=== PATIENT | male | born 1975 | race African-American/Black ===

== ENCOUNTER 2016-12-15 04:57 | Inpatient (IN) | payer SELFPAY ==
[~2016-12-15] VITALS: Ht 193 cm; Wt 65.7 kg
[~2016-12-15 04:57] MED LIST: SERO50TA4 PO
[2016-12-15 04:58] VITALS: BP 112/74; PULSE 102; RESP 16; TEMP 99.2; O2SAT 95
[2016-12-15] MEDS ORDERED: HIV med (05:07)
[2016-12-15] MEDS ORDERED: PIPERACIL-TAZO 4.5 GM PREMIX 100 ML IV STA (05:28)
[2016-12-15] MEDS ORDERED: VANCOMYCIN INJ 1,000 MG in SODIUM CHLOR 0.9% 250 ML INJ 250 ML IV STA (05:28)
--- NOTE | 2016-12-15 05:37 | PD ---
HPI Chief Complaint: Fever Time Seen by Provider: 05:28 Travel History International Travel<30 days: No Contact w/Intl Traveler<30days: No Traveled to known affect area: No History of Present Illness HPI 41-year-old male with history of HIV, last CD4 count 4 months ago was 98, has been off of his HIV medications due to social situation for the past 2-1/2 months, presents back to the ER today for several days history of chills, fevers , and skin lesions over the arms and ankles. He states he does not feel well and has also been having some diarrhea. He denies any vomiting or other symptoms. Modifying Factors: None Associated Signs & Symptoms: Fevers and chills, lesions to the arms, diarrhea Risk Factors: History of HIV PFSH Past Medical History Bipolar Disorder: Yes Cardiovascular Problems: Yes (HTN) Cerebrovascular Accident: No Diabetes: Yes Patient Takes Glucophage: Yes Diminished Hearing: No Immune Disorder: Yes (HIV) Immunizations Current: Yes Tetanus Vaccination: < 5 Years Influenza Vaccination: No Social History Alcohol Use: Yes (OCCASIONALLY) Tobacco Use: Yes (05/22 PPD ) Substance Use: Yes Allergies-Medications (Allergen,Severity, Reaction): Coded Allergies: No Known Allergies (Verified , 12/15/16) Reported Meds & Prescriptions Reported Meds & Active Scripts Active Reported [HIV med] Review of Systems Except as stated in HPI: all other systems reviewed are Neg Physical Exam Narrative GENERAL: Thin middle age -Mongolian male patient currently in moderate distress. Awake and oriented 3. SKIN: Focused skin assessment warm/dry. There are notable bilateral arm half to 1 cm skin excoriation and discolored ulcers. HEAD: Atraumatic. Normocephalic. EYES: Pupils equal and round. No scleral icterus. No injection or drainage. ENT: No nasal bleeding or discharge. Mucous membranes pink and moist. NECK: Trachea midline. No JVD. CARDIOVASCULAR: Regular rate and rhythm. No murmur appreciated. RESPIRATORY: No accessory muscle use. Clear to auscultation. Breath sounds equal bilaterally. GASTROINTESTINAL: Abdomen soft, non-tender, nondistended. Hepatic and splenic margins not palpable. MUSCULOSKELETAL: No obvious deformities. No clubbing. No cyanosis. No edema. NEUROLOGICAL: Awake and alert. No obvious cranial nerve deficits. Motor grossly within normal limits. Normal speech. PSYCHIATRIC: Appropriate mood and affect; insight and judgment normal. Data Data Last Documented VS Vital Signs Date Time Temp Pulse Resp B/P Pulse Ox O2 Delivery O2 Flow Rate FiO2 12/15/16 06:12 88 16 106/68 97 Room Air 12/15/16 04:58 99.2 Orders Complete Blood Count With Diff (12/15/16 05:28) Comprehensive Metabolic Panel (12/15/16 05:28) Lactic Acid Sepsis Protocol (12/15/16 05:28) Urinalysis - C+S If Indicated (12/15/16 05:28) Blood Culture (12/15/16 05:28) Chest, Single Ap (12/15/16 05:28) Blood Glucose (12/15/16 05:28) Ecg Monitoring (12/15/16 05:28) Iv Access Insert/Monitor (12/15/16 05:28) Oximetry (12/15/16 05:28) Oxygen Administration (12/15/16 05:28) Vancomycin Inj (Vancomycin Inj) (12/15/16 05:28) Piperacil-Tazo 4.5 Gm Premix (Zosyn 4.5 (12/15/16 05:28) Sodium Chlor 0.9% 1000 Ml Inj (Ns 1000 M (12/15/16 05:45) Labs Laboratory Tests Test 12/15/16 12/15/16 05:45 05:55 White Blood Count 6.8 TH/MM3 Red Blood Count 4.10 MIL/MM3 Hemoglobin 11.8 GM/DL Hematocrit 35.8 % Mean Corpuscular Volume 87.2 FL Mean Corpuscular Hemoglobin 28.8 PG Mean Corpuscular Hemoglobin 33.0 % Concent Red Cell Distribution Width 13.5 % Platelet Count 196 TH/MM3 Mean Platelet Volume 7.8 FL Neutrophils (%) (Auto) 76.0 % Lymphocytes (%) (Auto) 12.9 % Monocytes (%) (Auto) 10.6 % Eosinophils (%) (Auto) 0.1 % Basophils (%) (Auto) 0.4 % Neutrophils # (Auto) 5.2 TH/MM3 Lymphocytes # (Auto) 0.9 TH/MM3 Monocytes # (Auto) 0.7 TH/MM3 Eosinophils # (Auto) 0.0 TH/MM3 Basophils # (Auto) 0.0 TH/MM3 CBC Comment DIFF FINAL Differential Comment Sodium Level 132 MEQ/L Potassium Level 4.2 MEQ/L Chloride Level 98 MEQ/L Carbon Dioxide Level 27.8 MEQ/L Anion Gap 6 MEQ/L Blood Urea Nitrogen 26 MG/DL Creatinine 1.31 MG/DL Estimat Glomerular Filtration 74 ML/MIN Rate Random Glucose 83 MG/DL Calcium Level 8.2 MG/DL Total Bilirubin 0.6 MG/DL Aspartate Amino Transf 37 U/L (AST/SGOT) Alanine Aminotransferase 17 U/L (ALT/SGPT) Alkaline Phosphatase 63 U/L Total Protein 8.9 GM/DL Albumin 2.3 GM/DL Lactic Acid Level 1.0 mmol/L [facility] Medical Decision Making Medical Screen Exam Complete: Yes Emergency Medical Condition: Yes Medical Record Reviewed: Yes Interpretation(s) Laboratory Tests Test 12/15/16 05:45 Red Blood Count 4.10 MIL/MM3 (4.50-5.90) Hemoglobin 11.8 GM/DL (13.0-17.0) Hematocrit 35.8 % (39.0-51.0) Neutrophils (%) (Auto) 76.0 % (16.0-70.0) Monocytes (%) (Auto) 10.6 % (0.0-8.0) Lymphocytes # (Auto) 0.9 TH/MM3 (1.0-4.8) Sodium Level 132 MEQ/L (136-145) Blood Urea Nitrogen 26 MG/DL (7-18) Creatinine 1.31 MG/DL (0.60-1.30) Estimat Glomerular Filtration 74 ML/MIN (>89) Rate Calcium Level 8.2 MG/DL (8.5-10.1) Total Protein 8.9 GM/DL (6.4-8.2) Albumin 2.3 GM/DL (3.4-5.0) Last 24 hours Impressions Chest X-Ray 12/15/16 0528 Signed Impressions: Service Date/Time: Thursday, December 15, 2016 05:25 - CONCLUSION: Infiltrate left lower lobe retrocardiac region possible pneumonia Salinas Catalan MD Differential Diagnosis Sepsis versus AIDS versus cellulitis Narrative Course Considering patient's immunocompromise situation, IV antibiotics and sepsis protocol was initiated in the ER. Plan would be to admit the patient for further treatment. Chest x-ray shows some signs of possible left sided pneumonia. Diagnosis Primary Impression: Pneumonia Admitting Information Admitting Physician Requests: Admit Soontharothai,Rewadee MD Dec 15, 2016 05:37 Lynnette Agosto MD Dec 15, 2016 05:37
[2016-12-15] MEDS ORDERED: SODIUM CHLOR 0.9% 1000 ML INJ 1,000 ML IV ONE (05:45)
[2016-12-15 06:12] VITALS: BP 106/68; PULSE 88; RESP 16; O2SAT 97
--- NOTE | 2016-12-15 06:17 | RADRPT ---
EXAM DATE/TIME: 12/15/2016 05:25 [facility] COMPARISON: CHEST PA & LAT, June 23, 2015, 5:35. INDICATIONS : Fever. MEDICAL HISTORY : None. SURGICAL HISTORY : None. ENCOUNTER: Initial ACUITY: 2 days PAIN SCORE: 0/10 LOCATION: Bilateral chest FINDINGS: A single view of the chest demonstrates the lungs to be symmetrically aerated without evidence of mas s, or effusion. There is some airspace disease in the left lower lobe posteriorly The cardiomediastin al contours are unremarkable. Osseous structures are intact. CONCLUSION: Infiltrate left lower lobe retrocardiac region possible pneumonia Salinas Catalan MD on December 15, 2016 at 6:15 Board Certified Radiologist. This report was verified electronically.
[2016-12-15 06:35] LABS: AUTOMATED NEUTROPHIL # 5.2 TH/MM3 (1.8-7.7); BASOPHIL % 0.4 % (0.0-2.0); EOSINOPHIL % 0.1 % (0.0-4.0); HEMATOCRIT 35.8 % (39.0-51.0); HEMO FLAGS DIFF FINAL; LYMPH % 12.9 % (9.0-44.0); LYMPHOCYTE # 0.9 TH/MM3 (1.0-4.8); MEAN CELL VOLUME 87.2 FL (80.0-100.0); MEAN CORPUSCULAR HEMOGLOBIN 28.8 PG (27.0-34.0); MONO % 10.6 % (0.0-8.0); PLATELET COUNT 196 TH/MM3 (150-450); RED CELL DISTRIBUTION WIDTH 13.5 % (11.6-17.2); WHITE BLOOD COUNT 6.8 TH/MM3 (4.0-11.0)
[2016-12-15 06:49] LABS: ANION GAP 6 MEQ/L (5-15); AST (GOT) 37 U/L (15-37); BICARBONATE 27.8 MEQ/L (21.0-32.0); BLOOD UREA NITROGEN 26 MG/DL (7-18); CHLORIDE 98 MEQ/L (98-107); GLOMERULAR FILTRATION RATE 74 ML/MIN (>89); POTASSIUM 4.2 MEQ/L (3.5-5.1); SODIUM (NA) 132 MEQ/L (136-145)
[2016-12-15 06:50] LABS: ALT (GPT) 17 U/L (12-78)
[2016-12-15 06:53] LABS: ALKALINE PHOSPHATASE 63 U/L (45-117); TOTAL BILIRUBIN ADULT 0.6 MG/DL (0.2-1.0)
[2016-12-15] MEDS ORDERED: ONDANSETRON HCL 4 MG/2 ML VIAL IVP PRN (07:45)
[2016-12-15] MEDS ORDERED: NALOXONE HCL 0.4 MG/ML AMP IV PRN (07:45)
[2016-12-15] MEDS ORDERED: LACTULOSE SYRUP 20 GM/30 ML CUP PO PRN (07:45)
[2016-12-15] MEDS ORDERED: MAGNESIUM HYDROXIDE SUSP 30 ML CUP PO PRN (07:45)
[2016-12-15] MEDS ORDERED: ACETAMINOPHEN 325 MG TAB PO PRN (07:45)
[2016-12-15] MEDS ORDERED: SODIUM CHLORIDE 0.9% FLUSH 10 ML FLUSH IV FLUSH PRN (07:45)
[2016-12-15] MEDS ORDERED: SENNOSIDES 8.6 MG TAB PO PRN (07:45)
[2016-12-15] MEDS ORDERED: BISACODYL 10 MG SUPP RECTAL PRN (07:45)
[2016-12-15 07:55] VITALS: BP 133/72; PULSE 91; RESP 20; TEMP 98.6; O2SAT 97
[2016-12-15] MEDS: SODIUM CHLOR 0.9% 1000 ML INJ 1,000 ML IV SCH ×2 (08:06→17:45)
[2016-12-15] MEDS ORDERED: RESP: ALBUTEROL 2.5 MG/IPRATROPIUM 0.5 MG NEB (PRN) NEB (08:45)
[2016-12-15] MEDS: SODIUM CHLORIDE 0.9% FLUSH 10 ML FLUSH IV FLUSH SCH ×2 (09:00→20:55)
[2016-12-15] MEDS ORDERED: LEVOFLOXACIN 750 MG TAB PO SCH (09:00)
[2016-12-15] MEDS ORDERED: DOCUSATE SODIUM 50 MG/SENNA 8.6 MG TAB PO SCH (09:00)
[2016-12-15 09:53] VITALS: BP 96/52; PULSE 92; RESP 16; TEMP 99.2; O2SAT 95
--- NOTE | 2016-12-15 12:38 | HHI.HP ---
HPI Service [facility] Primary Care Physician No Primary Care Physician Admission Diagnosis pneumonia Diagnoses: Chief Complaint: Flulike symptoms Travel History International Travel<30 Days: No Contact w/Intl Traveler <30 Da: No Traveled to Known Affected Are: No Sepsis Criteria SIRS Criteria (2 or more): Heart rate over 90 History of Present Illness Written by Marc Alvarado, acting as scribe for Dr. Montanez on 12/15/16 at 12:04. This note was transcribed by scribJESSICA Mckeon. I, Dr. Anil Montanez personally performed the history, physical exam, and medical decision making; and confirmed the accuracy of the information in the transcribed note. Authenticated by Dr. Anil Montanez on 12/15/16 at 20:41. 41-year-old male with a past medical history of HIV and borderline DM who presented complaining of "flu-like" illness. The patient has been having generalized malaise for the past 2 days. He is an associated productive cough. He is had nausea and vomiting 2, denies any bleeding. He's noticed painful lesions on his arms and legs. He states he's felt dehydrated. Yesterday the patient began having watery diarrhea every time he ate. He states that his temperature was 103 at home prior to admission. He continues to have shaking chills. The patient does have a history of HIV. He was incarcerated recently and during his transition to half-way he was without his HIV medications. He has now been off of his HIV medication for the past 3 or 4 months while trying to reestablish treatment with the health department. He states that prior to getting off of his medication his last CD4 count was 97. He denies any abdominal pain. Review of Systems Except as stated in HPI: all other systems reviewed are Neg Past Family Social History Past Medical History HIV diagnosed in 2008 Reportedly borderline diabetic Past Surgical History Right ankle surgery Reported Medications None Allergies: Coded Allergies: No Known Allergies (Verified , 12/15/16) Active Ordered Medications Current Medications Medications (Trade) Dose Ordered Sig/Meet Route Start Time Stop Time Status Last Admin (NS 1000 ml Inj) 1,000 ml @ 100 mls/hr Q10H IV 12/15/16 07:45 12/15/16 08:06 (NS Flush) 2 ml UNSCH PRN IV FLUSH 12/15/16 07:45 (NS Flush) 2 ml BID IV FLUSH 12/15/16 09:00 (Tylenol) 650 mg Q4H PRN PO 12/15/16 07:45 (Zofran Inj) 4 mg Q6H PRN IVP 12/15/16 07:45 (Narcan Inj) 0.4 mg UNSCH PRN IV 12/15/16 07:45 (Kiki-Colace) 1 tab BID PO 12/15/16 09:00 12/15/16 09:38 (Milk Of Magnesia Liq) 30 ml Q12H PRN PO 12/15/16 07:45 (Senokot) 17.2 mg Q12H PRN PO 12/15/16 07:45 (Dulcolax Supp) 10 mg DAILY PRN RECTAL 12/15/16 07:45 (Lactulose Liq) 30 ml DAILY PRN PO 12/15/16 07:45 (Levaquin) 750 mg DAILY PO 12/15/16 09:00 12/15/16 09:15 Family History Hypertension Social History Smokes half pack per day Rare alcohol use Does admit to marijuana and recent cocaine use Physical Exam Vital Signs Vital Signs Date Time Temp Pulse Resp B/P Pulse Ox O2 Delivery O2 Flow Rate FiO2 12/15/16 09:53 99.2 92 16 96/52 95 12/15/16 07:55 92 20 99 Room Air 12/15/16 07:55 98.6 91 20 133/72 97 12/15/16 06:12 88 16 106/68 97 Room Air 12/15/16 04:58 99.2 102 16 112/74 95 Room Air Physical Exam GENERAL: Well-developed tall, thin, fair-nourished patient. In no acute distress. SKIN: Warm and dry. Numerous small lesions with central ulceration of the upper and lower extremities; no drainage noted. HEENT: Normocephalic. Pupils equal and round. Mucous membranes pink and moist. CARDIOVASCULAR: Regular rate and rhythm. No murmur appreciated. RESPIRATORY: No accessory muscle use. Clear to auscultation. Breath sounds equal bilaterally. GASTROINTESTINAL: Abdomen soft, non-tender, nondistended. Bowel sounds x4. MUSCULOSKELETAL: No obvious deformities. No clubbing or cyanosis. No edema. NEUROLOGICAL: Awake and alert. No focal neurological deficits. Moves upper and lower extremities spontaneously. Normal speech. PSYCHIATRIC: Appropriate mood and affect; insight and judgment normal. Laboratory Laboratory Tests Test 12/15/16 12/15/16 05:45 05:55 White Blood Count 6.8 Red Blood Count 4.10 Hemoglobin 11.8 Hematocrit 35.8 Mean Corpuscular Volume 87.2 Mean Corpuscular Hemoglobin 28.8 Mean Corpuscular Hemoglobin 33.0 Concent Red Cell Distribution Width 13.5 Platelet Count 196 Mean Platelet Volume 7.8 Neutrophils (%) (Auto) 76.0 Lymphocytes (%) (Auto) 12.9 Monocytes (%) (Auto) 10.6 Eosinophils (%) (Auto) 0.1 Basophils (%) (Auto) 0.4 Neutrophils # (Auto) 5.2 Lymphocytes # (Auto) 0.9 Monocytes # (Auto) 0.7 Eosinophils # (Auto) 0.0 Basophils # (Auto) 0.0 CBC Comment DIFF FINAL Differential Comment Sodium Level 132 Potassium Level 4.2 Chloride Level 98 Carbon Dioxide Level 27.8 Anion Gap 6 Blood Urea Nitrogen 26 Creatinine 1.31 Estimat Glomerular Filtration 74 Rate Random Glucose 83 Calcium Level 8.2 Total Bilirubin 0.6 Aspartate Amino Transf 37 (AST/SGOT) Alanine Aminotransferase 17 (ALT/SGPT) Alkaline Phosphatase 63 Total Protein 8.9 Albumin 2.3 Lactic Acid Level 1.0 Date/Time Procedure Status Source Growth 12/15/16 05:50 Aerobic Blood Culture Received Blood Peripheral Pending 12/15/16 05:50 Anaerobic Blood Culture Received Blood Peripheral Pending Result Diagram: 12/15/1645 12/15/1645 Imaging Last Impressions Chest X-Ray 12/15/16527 Signed Impressions: Service Date/Time: Thursday, December 15, 2016 05:25 - CONCLUSION: Infiltrate left lower lobe retrocardiac region possible pneumonia Salinas Catalan MD Assessment and Plan Assessment and Plan 41-year-old male with a past medical history of HIV and borderline DM who presented complaining of "flu-like" illness Pneumonia: Chest x-ray personally reviewed with left lower lobe retrocardiac infiltrate. Tmax 99.2. No leukocytosis. Received IV vancomycin and Zosyn in the ED, continue on oral Levaquin for now. Check sputum culture. Consult ID. O2 and nebs as needed. Gastroenteritis: Patient has been having nausea, vomiting, and diarrhea 2 days. Check stool studies. IVF. Antiemetics as needed. Acute kidney injury: Creatinine 1.31, previously 0.9 on 02/29/16. Likely secondary to dehydration from GI losses. IVF. Follow-up BMP. HIV: Reports previously compliant, however she has been off medications due to social situation for the past 34 months. Check lymphocyte profile. ID consulted. Skin lesions: May need biopsy. Follow-up ID recommendations. Moderate protein calorie malnutrition: BMI 16.4. Albumin 2.3. Add boost to meals. Consult dietitian. DVT prophylaxis: SCDs Discussed Condition With Patient, Marc Dubon Dec 15, 2016 12:38 Elias Montanez DO Dec 15, 2016 20:43
[2016-12-15 15:26] VITALS: BP 114/63; PULSE 93; RESP 15; TEMP 99.2; O2SAT 95
[2016-12-15 16:15] LABS: BLOOD, URINE SMALL (NEG); COMMENT (UR) CATH-CULT NOT IND; CULTURE IF INDICATED CATH CULTURE NOT IND; GLUCOSE,URINE NEG (NEG); GRANULAR CAST, URINE 3 /lpf; HYALINE CAST, URINE 5 /lpf (RARE); KETONE, URINE NEG (NEG); MUCUS URINE FEW /lpf (OCC); NITRITE,URINE NEG (NEG); PH, URINE 5.5 (5.0-8.5); SQUAMOUS EPITHELIAL CELL URINE <1 /hpf (0-5); URINE COLOR YELLOW (YELLW/STRAW)
[2016-12-15] MEDS ORDERED: Vancomycin Consult Pharmacy 1 EA OTHER SCH (16:30)
[2016-12-15] MEDS ORDERED: DIATRIZOATE MEGLUM/DIATRIZOATE SOD 9 ML CUP PO ONE (17:00)
--- NOTE | 2016-12-15 17:03 | PD.ID.CON ---
History of Present Illness Service ID Consult Requested By /Marc LOPEZ Reason for Consult Evaluation and Mment of Sepsis, Pneumonia in a pt with HIV/AIDS Primary Care Physician No Primary Care Physician Diagnoses: History of Present Illness is a 41 y/o CM with PMHx of HIV/AIDS, h/o syphilis, h/o Hepatitis B and Hepatitis C. Patient reports he was diagnosed with HIV in 2009 and had been on treatment since then by at health dept. Last seen by him 8 months back or so. Patient also reports homelessness, h/o incarceration, h/o being Yates acted but denies active suicidal ideation. He reports his last CD4 count as less than 90 almost a year back. He reports that once he was Yates Acted he has not been employed and has been homeless on streets. He reports a steady decline in his health for last few months with generalized fatigue, decreased appetite, difficulty ambulating due to weakness but still been dragging himself. With this background patient presents with "flu-like" illness. The patient has been having generalized malaise for the past 2 days, associated productive cough. He is had nausea and vomiting 2, denies any bleeding. He's noticed painful lesions on his arms and legs. He states he's felt dehydrated. Yesterday the patient began having watery diarrhea every time he ate. He states that his temperature was 103 at home prior to admission. He continues to have shaking chills. Patient reports having lived in [place] and [place] other than [place]. Patient reports incarceration Yates Acted. Syphilis Homelessness Per review of medical records: Positive PPD, Hep C and IVDA in past. ID consulted for evaluation and Mment of Sepsis, Pneumonia, Diarrhea in a pt with HIV/AIDS. Review of Systems ROS Limitations: Poor Historian Constitutional: COMPLAINS OF: Diaphoretic episodes, Fatigue, Fever, Chills, Night Sweats Endocrine: DENIES: Heat/cold intolerance, Polydipsia, Polyuria, Polyphagia Eyes: DENIES: Blurred vision, Diplopia, Eye inflammation, Eye pain, Vision loss , Photosensitivity, Double Vision Ears, nose, mouth, throat: DENIES: Tinnitus, Hearing loss, Vertigo, Nasal discharge, Oral lesions, Throat pain, Hoarseness, Ear Pain, Running Nose, Epistaxis, Sinus Pain, Toothache, Odynophagia Respiratory: COMPLAINS OF: Cough, Sputum production, Shortness of breath, DENIES: Apneas, Snoring, Wheezing, Hemoptysis Cardiovascular: COMPLAINS OF: Lower Extremity Edema, DENIES: Chest pain, Palpitations, Syncope, Dyspnea on Exertion, PND, Orthopnea, Claudication Gastrointestinal: COMPLAINS OF: Diarrhea, Nausea, Vomiting, DENIES: Abdominal pain, Black stools, Bloody stools, Constipation, Difficulty Swallowing, Anorexia Genitourinary: DENIES: Sexual dysfunction, Urinary frequency, Urinary incontinence, Urgency, Hematuria, Dysuria, Nocturia, Penile Discharge, Testicular Pain, Testicular Swelling Musculoskeletal: DENIES: Joint pain, Muscle aches, Stiffness, Joint Swelling, Back pain, Neck pain Integumentary: COMPLAINS OF: Rash, DENIES: Abnormal pigmentation, Nail changes , Pruritus Hematologic/lymphatic: DENIES: Bruising, Lymphadenopathy Immunologic/allergic: DENIES: Eczema, Urticaria Neurologic: COMPLAINS OF: Paresthesias, Poor Balance, DENIES: Abnormal gait, Headache, Localized weakness, Seizures, Speech Problems, Tremor H/o being incarcerated H/o being placed in [facility]. Past Family Social History Allergies: Coded Allergies: No Known Allergies (Verified , 12/15/16) Past Medical History HIV diagnosed in 2009 Reportedly borderline diabetic Syphilis Hep B or Hep B by history Past Surgical History Right ankle surgery Reported Medications Reported Meds & Active Scripts Active Reported [HIV med] Active Ordered Medications Current Medications Medications (Trade) Dose Ordered Sig/Meet Route Start Time Stop Time Status Last Admin (NS 1000 ml Inj) 1,000 ml @ 100 mls/hr Q10H IV 12/15/16 07:45 12/15/16 08:06 (NS Flush) 2 ml UNSCH PRN IV FLUSH 12/15/16 07:45 (NS Flush) 2 ml BID IV FLUSH 12/15/16 09:00 (Tylenol) 650 mg Q4H PRN PO 12/15/16 07:45 (Zofran Inj) 4 mg Q6H PRN IVP 12/15/16 07:45 (Narcan Inj) 0.4 mg UNSCH PRN IV 12/15/16 07:45 (Milk Of Magnesia Liq) 30 ml Q12H PRN PO 12/15/16 07:45 (Senokot) 17.2 mg Q12H PRN PO 12/15/16 07:45 (Dulcolax Supp) 10 mg DAILY PRN RECTAL 12/15/16 07:45 (Lactulose Liq) 30 ml DAILY PRN PO 12/15/16 07:45 (Bactrim Ds 800-160 Mg) 1 tab MoWeFr@09 PO 12/16/16 09:00 Azithromycin 500 mg 500 mg DAILY PO 12/15/16 16:30 Piperacillin Sod/ Tazobactam Sod 100 ml @ 200 mls/hr Q6H IV 12/15/16 18:00 Pharmacy Profile Note 0 ml @ 0 mls/hr UNSCH OTHER 12/15/16 16:30 (Vancomycin Inj/ NS 250 ml Inj) 250 ml @ 250 mls/hr Q12H IV 12/15/16 18:00 Miscellaneous Information SPECIFIC LAB TO BE CINDY... ONCE ONCE .XX 12/16/16 17:45 12/16/16 17:46 Family History Hypertension Social History Smokes half pack per day Rare alcohol use Does admit to marijuana and recent cocaine use Physical Exam Vital Signs Vital Signs Date Time Temp Pulse Resp B/P Pulse Ox O2 Delivery O2 Flow Rate FiO2 12/15/16 15:26 99.2 93 15 114/63 95 12/15/16 09:53 99.2 92 16 96/52 95 12/15/16 07:55 92 20 99 Room Air 12/15/16 07:55 98.6 91 20 133/72 97 12/15/16 06:12 88 16 106/68 97 Room Air 12/15/16 04:58 99.2 102 16 112/74 95 Room Air Physical Exam GENERAL: Thin built AAM patient, in no apparent distress. SKIN: Skin with multiple lesions some look like abrasions, some ruptured pustules. Generalized LNpathy noted. HEAD: Atraumatic. Normocephalic. No temporal or scalp tenderness. EYES: Pupils equal round and reactive. Extraocular motions intact. No scleral icterus. No injection or drainage. ENT: Nose without bleeding, purulent drainage or septal hematoma. Throat without erythema, tonsillar hypertrophy or exudate. Uvula midline. Airway patent. NECK: Trachea midline. Supple, nontender, no meningeal signs. CARDIOVASCULAR: Regular rate and rhythm without murmurs, gallops, or rubs. RESPIRATORY: Clear to auscultation. Breath sounds equal bilaterally but decreased in the bases. GASTROINTESTINAL: Abdomen soft, non-tender, nondistended. MUSCULOSKELETAL: Right great toe with swelling and tenderness, abrasions and skin tear noted as well. Tender to soft touch. NEUROLOGICAL: Awake and alert. Grossly non focal Psych: cooperative IV line sites with no e.o infection. Laboratory Laboratory Tests Test 12/15/16 12/15/16 12/15/16 05:45 05:55 15:25 White Blood Count 6.8 Red Blood Count 4.10 Hemoglobin 11.8 Hematocrit 35.8 Mean Corpuscular Volume 87.2 Mean Corpuscular Hemoglobin 28.8 Mean Corpuscular Hemoglobin 33.0 Concent Red Cell Distribution Width 13.5 Platelet Count 196 Mean Platelet Volume 7.8 Neutrophils (%) (Auto) 76.0 Lymphocytes (%) (Auto) 12.9 Monocytes (%) (Auto) 10.6 Eosinophils (%) (Auto) 0.1 Basophils (%) (Auto) 0.4 Neutrophils # (Auto) 5.2 Lymphocytes # (Auto) 0.9 Monocytes # (Auto) 0.7 Eosinophils # (Auto) 0.0 Basophils # (Auto) 0.0 CBC Comment DIFF FINAL Differential Comment Sodium Level 132 Potassium Level 4.2 Chloride Level 98 Carbon Dioxide Level 27.8 Anion Gap 6 Blood Urea Nitrogen 26 Creatinine 1.31 Estimat Glomerular Filtration 74 Rate Random Glucose 83 Calcium Level 8.2 Total Bilirubin 0.6 Aspartate Amino Transf 37 (AST/SGOT) Alanine Aminotransferase 17 (ALT/SGPT) Alkaline Phosphatase 63 Total Protein 8.9 Albumin 2.3 Lactic Acid Level 1.0 Urine Color YELLOW Urine Turbidity CLEAR Urine pH 5.5 Urine Specific Siren 1.021 Urine Protein 100 Urine Glucose (UA) NEG Urine Ketones NEG Urine Occult Blood SMALL Urine Nitrite NEG Urine Bilirubin NEG Urine Urobilinogen LESS THAN 2.0 Urine Leukocyte Esterase NEG Urine RBC 1 Urine WBC 1 Urine Squamous Epithelial <1 Cells Urine Hyaline Casts 5 Urine Granular Casts 3 Urine Mucus FEW Microscopic Urinalysis Comment CATH-CULT NOT IND Date/Time Procedure Status Source Growth 12/15/16 12:45 Gram Stain - Final Resulted Sputum Expectorated Sputum 12/15/16 12:45 Sputum Culture Resulted Sputum Expectorated Sputum Pending 12/15/16 12:45 Fungal Smear - Final Resulted Sputum Expectorated Sputum NO FUNGAL ELEMENTS SEEN. 7/30/17 12:45 Fungal Culture Resulted Sputum Expectorated Sputum Pending 12/15/16 12:45 Acid Fast Stain Received Sputum Expectorated Sputum Pending 12/15/16 12:45 Mycobacterial Culture Received Sputum Expectorated Sputum Pending 12/15/16 05:50 Aerobic Blood Culture Received Blood Peripheral Pending 12/15/16 05:50 Anaerobic Blood Culture Received Blood Peripheral Pending Result Diagram: 12/15/1654412/15/16544 Imaging Last Impressions Chest X-Ray 12/15/16527 Signed Impressions: Service Date/Time: Thursday, December 15, 2016 05:25 - CONCLUSION: Infiltrate left lower lobe retrocardiac region possible pneumonia Salinas Catalan MD Assessment and Plan Assessment and Plan Possible Sepsis present on admission (h/o fever, chills, night sweats in an advanced HIV/AIDS pt with Pneumonia, Immune compromised may not manifest SIRS). Prior Rx with HAART now off meds and CD4 less than 50 per pt few months back. Pneumonia DDX: CAP, atypical, PCP or other etiologies. Skin lesions: bacterial or Kaposi sarcoma (less likely) Possible bacteremia HIV AIDS H/o Syphilis H/o ? Hepatitis B and ? C Acute renal failure: ? prerenal, sepsis, h/o proteinuria (? DM related vs HIV nephropathy) Recs AFB blood culture Fungal blood culture Hepatitis panel HIV antibody screen Airborne isolation at risk for TB (Pneumonia with cough, homelessness, h/o incarceration) Contact isolation (has multiple skin lesions of undetermined origin) MTB PCR of sputum Follow cultures Follow clinically. CT chest with IV contrast (r/o PCP or other infections) CT A/P with contrast Stool AFB, enteric pathogens, cryptosporidium, cyclospora, fungus, WBC, Cdiff PCR ECHO (r/o endocarditis, pt at risk for culture negative endocarditis Serum Cryptococcal ag RPR with reflex to titer. CD4/CD8 count Viral load Genotype with reflex to Phenotype. Foot X ray (pain right foot great toe excruciating pain) Podiatry consult (r/o abscess great toe) Follow cultures Follow clinically. Cari Teixeira MD Dec 15, 2016 17:03
[2016-12-15] MEDS: AZITHROMYCIN 250 MG TAB PO SCH (17:28)
[2016-12-15] MEDS: PIPERACIL-TAZO 4.5 GM PREMIX 100 ML IV SCH (17:31)
--- NOTE | 2016-12-15 17:54 | RADRPT ---
EXAM DATE/TIME: 12/15/2016 17:35 [facility] COMPARISON: No previous studies available for comparison. INDICATIONS : Right foot pain, stubbed foot MEDICAL HISTORY : None. SURGICAL HISTORY : None. ENCOUNTER: Initial ACUITY: 1 week PAIN SCORE: 6/10 LOCATION: Right Foot FINDINGS: Two view examination of the right foot demonstrates no soft tissue swelling, dislocation, or fracture . The calcaneus is intact. Bony mineralization is normal. CONCLUSION: Negative exam. Donn Bahena MD on December 15, 2016 at 17:49 Board Certified Radiologist. This report was verified electronically.
[2016-12-15] MEDS: VANCOMYCIN 1,000 MG/NS 250 ML IV SCH ×2 (18:27)
[2016-12-15] MEDS ORDERED: IOHEXOL 350 MG/ML 10 ML VIAL (for RAD DIAG) IV ONE (20:12)
--- NOTE | 2016-12-15 20:24 | RADRPT ---
EXAM DATE/TIME: 12/15/2016 19:58 [facility] COMPARISON: No previous studies available for comparison. INDICATIONS : Pneumonia. IV CONTRAST: 100 cc Omnipaque 350 (iohexol) IV ; Cumulative dose for multiple exams. RADIATION DOSE: 4.78 CTDIvol (mGy) ; Combined studies - Thorax/Abdomen/Pelvis MEDICAL HISTORY : HIV. Hypertension. Diabetes mellitus type 2. SURGICAL HISTORY : None. ENCOUNTER: Initial ACUITY: 1 day PAIN SCALE: 0/10 LOCATION: chest TECHNIQUE: Volumetric scanning of the chest was performed. Using automated exposure control and adjustment of t he mA and/or kV according to patient size, radiation dose was kept as low as reasonably achievable to obtain optimal diagnostic quality images. DICOM format image data is available electronically for review and comparison. Follow-up recommendations for incidentally detected pulmonary nodules are based at a minimum on nodul e size and patient risk factors according to Fleischner Society Guidelines. FINDINGS: LUNGS: 87.4 cm rounded area of masslike consolidation is seen within the left lung base. A few air bronchogr ams are noted. No cystic areas or cavitation observed. Small sub-1 cm rounded areas of consolidation are seen involving the right lung base. Upper lobes are clear. PLEURA: There is no pleural thickening or pleural effusion. MEDIASTINUM: The heart and great vessels demonstrate no acute abnormality. There is no mediastinal or hilar lymph adenopathy. AXILLAE: Within normal limits. No lymphadenopathy. SKELETAL: Within normal limits for patient age. MISCELLANEOUS: See the CT of the abdomen and pelvis reported separately. CONCLUSION: 1. Large masslike area of consolidation involving the left lung base with scattered areas of small no dular like consolidation within the right lung base. Infectious etiology most likely. Donn Randhawa Jr., MD on December 15, 2016 at 20:20 Board Certified Radiologist. This report was verified electronically.
--- NOTE | 2016-12-15 20:35 | RADRPT ---
EXAM DATE/TIME: 12/15/2016 19:58 [facility] COMPARISON: CT ABDOMEN & PELVIS W/O CONTRAST, February 23, 2015, 12:05. INDICATIONS : History of HIV. Complains of diarrhea. IV CONTRAST: 100 cc Omnipaque 350 (iohexol) IV ; Cumulative dose for multiple exams. ORAL CONTRAST: Prescribed oral contrast ingested. RADIATION DOSE: 4.78 CTDIvol (mGy) ; Combined studies - Thorax/Abdomen/Pelvis MEDICAL HISTORY : Hypertension. HIV. Diabetes mellitus type 2. SURGICAL HISTORY : None. ENCOUNTER: Initial ACUITY: 1 day PAIN SCALE: 4/10 LOCATION: Bilateral abdomen TECHNIQUE: Volumetric scanning of the abdomen and pelvis was performed. Using automated exposure control and ad justment of the mA and/or kV according to patient size, radiation dose was kept as low as reasonably achievable to obtain optimal diagnostic quality images. DICOM format image data is available electro nically for review and comparison. FINDINGS: There is a paucity of subcutaneous and abdominal fat. Prior CT in 2015 also demonstrated decreased a bdominal fat, but there is has been a further loss of abdominal fat and compared to prior CT. Abnormal appearance the left lower lung with a masslike area devoid of air bronchograms measuring 5.5 cm. No evidence of pleural effusion. There is some patchy non-consolidative infiltrates in the rig ht lower lung. No focal lesions seen in the liver. The spleen is normal size. Pancreas is normal in configuration. There is hydronephrosis of the left kidney, no calcified stones in the collecting system of either kidney or along either ureter. Prior CT in 2015 also demonstrated left-sided hydronephrosis. Oral contrast passes through to the transverse colon. No dilated loops of small or large bowel. Uri nary ladder margins are smooth. No evidence of retroperitoneal or inguinal adenopathy. Wide windows for bony detail demonstrate the osseous structures to be intact. CONCLUSION: 1. Greater than 5 cm masslike lesion in the left lower lobe. Patchy infiltrates in the right lower l obe. 2. Moderately severe hydronephrosis on the left side, similar to a prior CT in 2014. 3. Almost complete loss of intra-abdominal and subcutaneous fat. Donn Bahena MD on December 15, 2016 at 20:28 Board Certified Radiologist. This report was verified electronically.
--- NOTE | 2016-12-15 20:37 | RADRPT ---
EXAM DATE/TIME: 12/15/2016 19:58 [facility] COMPARISON: No previous studies available for comparison. INDICATIONS : Possible cerebral abscess. IV CONTRAST: 100 cc Omnipaque 350 (iohexol) IV ; Cumulative dose for multiple exams. RADIATION DOSE: 53.04 CTDIvol (mGy) ; Tabletop CT Head MEDICAL HISTORY : HIV. Diabetes mellitus type 2. Hypertension. SURGICAL HISTORY : None. ENCOUNTER: Initial ACUITY: 1 day PAIN SCALE: 6/10 LOCATION: cranial TECHNIQUE: Multiple contiguous axial images were obtained of the head. Using automated exposure control and adj ustment of the mA and/or kV according to patient size, radiation dose was kept as low as reasonably a chievable to obtain optimal diagnostic quality images. DICOM format image data is available electro nically for review and comparison. FINDINGS: CEREBRUM: The ventricles are normal for age. No evidence of midline shift, cerebral edema or blood products. No extra-axial fluid collections are seen. POSTERIOR FOSSA: The cerebellum and brainstem are intact. The 4th ventricle is midline. The cerebellar pontine angle is unremarkable. EXTRACRANIAL: The visualized portion of the orbits is intact. SKULL: The calvaria is intact. No evidence of skull fracture. POST CONTRAST: No abnormal areas of parenchymal or dural enhancement. No evidence of blood-brain barrier breakdown. CONCLUSION: Negative CT of the brain with and without contrast. Donn Bahena MD on December 15, 2016 at 20:34 Board Certified Radiologist. This report was verified electronically.
[2016-12-15 20:50] VITALS: BP 105/66; PULSE 88; RESP 18; TEMP 98; O2SAT 95
[2016-12-16] VITALS (7 sets, daily range): BP systolic 98–115; BP diastolic 59–68; PULSE 66–78; RESP 16–18; TEMP 97–99.2; O2SAT 94–98
[2016-12-16 00:12] LABS: CHLAMYDIA PCR NOT DETECTED (NOT DETECT); NEISSERIA PCR NOT DETECTED (NOT DETECT)
[2016-12-16] MEDS: PIPERACIL-TAZO 4.5 GM PREMIX 100 ML IV SCH ×5 (00:58→23:31)
[2016-12-16] MEDS: SODIUM CHLOR 0.9% 1000 ML INJ 1,000 ML IV SCH ×3 (05:04→23:31)
[2016-12-16] MEDS: VANCOMYCIN 1,000 MG/NS 250 ML IV SCH ×4 (05:04→18:54)
[2016-12-16 06:15] LABS: BICARBONATE 26.5 MEQ/L (21.0-32.0); POTASSIUM 3.9 MEQ/L (3.5-5.1)
[2016-12-16 06:23] LABS: AUTOMATED NEUTROPHIL # 3.1 TH/MM3 (1.8-7.7); BASOPHIL % 0.3 % (0.0-2.0); EOSINOPHIL # 0.1 TH/MM3 (0-0.4); EOSINOPHIL % 1.8 % (0.0-4.0); HEMATOCRIT 31.8 % (39.0-51.0); HEMO FLAGS DIFF FINAL; LYMPH % 16.8 % (9.0-44.0); LYMPHOCYTE # 0.7 TH/MM3 (1.0-4.8); MEAN CELL VOLUME 86.1 FL (80.0-100.0); MEAN CORPUSCULAR HEMOGLOBIN 29.4 PG (27.0-34.0); MEAN CORPUSCULAR HGB CONC 34.1 % (32.0-36.0); MONO % 10.2 % (0.0-8.0); NEUT % 70.9 % (16.0-70.0); PLATELET COUNT 177 TH/MM3 (150-450); RED CELL DISTRIBUTION WIDTH 13.8 % (11.6-17.2); WHITE BLOOD COUNT 4.4 TH/MM3 (4.0-11.0)
[2016-12-16] MEDS: SODIUM CHLORIDE 0.9% FLUSH 10 ML FLUSH IV FLUSH SCH ×2 (08:44→20:49)
[2016-12-16] MEDS: AZITHROMYCIN 250 MG TAB PO SCH (08:45)
[2016-12-16] MEDS: SULFAMETHOXAZOLE-TRIMETHOPRIM DS 800-160 MG TAB PO SCH (08:45)
[2016-12-16] MEDS ORDERED: LIDOCAINE HCL 2% 20 ML VIAL I-DERMAL ONE (10:00)
[2016-12-16 10:14] LABS: M. TUBERCULOSIS PCR NOT DETECTED (NOT DETECT)
--- NOTE | 2016-12-16 11:11 | HHI.PR ---
Subjective Remarks Follow up for HIV patient with sepsis, fevers, weakness, cough, diarrhea. The patient reports just feeling very tired/fatigued. He denies any significant shortness of breath. His cough has improved, nonproductive today. Denies fevers/ chills overnight. Continues to have nonbloody diarrhea, 4 episodes yesterday, 1 episode so far today. Denies abdominal pain/nausea/vomiting. Still reports pain/ swelling at right great toe. He has no other medical complaints at this time. Objective Vitals Vital Signs Date Time Temp Pulse Resp B/P Pulse Ox O2 Delivery O2 Flow Rate FiO2 12/16/16 08:38 98.1 72 17 100/59 95 12/16/16 07:47 95 21 12/16/16 06:49 97.7 78 18 98/59 95 12/16/16 05:17 21 12/16/16 00:58 97.6 68 17 115/68 94 12/15/16 20:50 98.0 88 18 105/66 95 12/15/16 15:26 99.2 93 15 114/63 95 I/O 12/15/16 12/15/16 12/15/16 12/16/16 12/16/16 12/16/16 07:00 15:00 23:00 07:00 15:00 23:00 Intake Total 1200 ml Balance 1200 ml Intake Oral 600 ml IV Total 600 ml # Voids 3 # Bowel Movements 0 Result Diagram: 12/16/1652212/16/16 0523 Imaging Last Impressions Chest X-Ray 12/15/16 0528 Signed Impressions: Service Date/Time: Thursday, December 15, 2016 05:25 - CONCLUSION: Infiltrate left lower lobe retrocardiac region possible pneumonia Salinas Catalan MD Head CT 12/15/16 0000 Signed Impressions: Service Date/Time: Thursday, December 15, 2016 19:58 - CONCLUSION: Negative CT of the brain with and without contrast. Donn Bahena MD Foot X-Ray 12/15/16 0000 Signed Impressions: Service Date/Time: Thursday, December 15, 2016 17:35 - CONCLUSION: Negative exam. Donn Bahena MD Chest CT 12/15/16 0000 Signed Impressions: Service Date/Time: Thursday, December 15, 2016 19:58 - CONCLUSION: 1. Large masslike area of consolidation involving the left lung base with scattered areas of small nodular like consolidation within the right lung base. Infectious etiology most likely. Donn Randhawa Jr., MD Abdomen/Pelvis CT 12/15/16 0000 Signed Impressions: Service Date/Time: Thursday, December 15, 2016 19:58 - CONCLUSION: 1. Greater than 5 cm masslike lesion in the left lower lobe. Patchy infiltrates in the right lower lobe. 2. Moderately severe hydronephrosis on the left side, similar to a prior CT in 2014. 3. Almost complete loss of intra-abdominal and subcutaneous fat. Donn Bahena MD Objective Remarks GENERAL: Pleasant thin middle aged AA male patient in NAD. SKIN: Warm and dry. No rash. HEAD: Normocephalic. Atraumatic. EYES: Pupils equal and round. No scleral icterus. No injection or drainage. ENT: No nasal bleeding or discharge. Mucous membranes pink and moist. NECK: Supple. Trachea midline. CARDIOVASCULAR: Regular rate and rhythm. S1, S2 noted. No murmur appreciated. RESPIRATORY: No accessory muscle use. Scattered rhonchi, worse at right mid- lower lobes, no wheezing/crackles. GASTROINTESTINAL: Abdomen soft, non-tender, nondistended. Normoactive bowel sounds x4. MUSCULOSKELETAL: No obvious deformities. Extremities without clubbing, cyanosis , or edema. Right hallux tender edema surrounding medial nail bed, no active drainage. NEUROLOGICAL: Awake and alert. No obvious cranial nerve deficits. Motor grossly within normal limits. Normal speech. PSYCHIATRIC: Appropriate mood and affect; insight and judgment normal. Medications and IVs Current Medications Medications (Trade) Dose Ordered Sig/Meet Route Start Time Stop Time Status Last Admin (NS 1000 ml Inj) 1,000 ml @ 100 mls/hr Q10H IV 12/15/16 07:45 12/16/16 05:04 (NS Flush) 2 ml UNSCH PRN IV FLUSH 12/15/16 07:45 (NS Flush) 2 ml BID IV FLUSH 12/15/16 09:00 12/15/16 20:55 (Tylenol) 650 mg Q4H PRN PO 12/15/16 07:45 (Zofran Inj) 4 mg Q6H PRN IVP 12/15/16 07:45 (Narcan Inj) 0.4 mg UNSCH PRN IV 12/15/16 07:45 (Milk Of Magnesia Liq) 30 ml Q12H PRN PO 12/15/16 07:45 (Senokot) 17.2 mg Q12H PRN PO 12/15/16 07:45 (Dulcolax Supp) 10 mg DAILY PRN RECTAL 12/15/16 07:45 (Lactulose Liq) 30 ml DAILY PRN PO 12/15/16 07:45 (Bactrim Ds 800-160 Mg) 1 tab MoWeFr@09 PO 12/16/16 09:00 12/16/16 08:45 Azithromycin 500 mg 500 mg DAILY PO 12/15/16 16:30 12/16/16 08:45 Piperacillin Sod/ Tazobactam Sod 100 ml @ 200 mls/hr Q6H IV 12/15/16 18:00 12/16/16 06:43 Pharmacy Profile Note 0 ml @ 0 mls/hr UNSCH OTHER 12/15/16 16:30 (Vancomycin Inj/ NS 250 ml Inj) 250 ml @ 250 mls/hr Q12H IV 12/15/16 18:00 12/16/16 05:04 Miscellaneous Information SPECIFIC LAB TO BE CINDY... ONCE ONCE .XX 12/16/16 17:45 12/16/16 17:46 A/P Problem List: (1) Pneumonia ICD Code: J18.9 Status: Acute (2) Diarrhea ICD Code: R19.7 Status: Acute (3) HIV (human immunodeficiency virus infection) ICD Code: B20 Status: Acute (4) Sepsis associated with AIDS ICD Code: B20 Status: Acute Assessment and Plan 41-year-old male with a past medical history of HIV/AIDS, syphillis, hepatitic B /C, and borderline DM who presented complaining of "flu-like" illness Pneumonia, suspected Sepsis: patient with HIV/AIDS, immunocompromised, may not present with SIRS criteria, with fever Tmax 103 prior to arrival, chills, night sweats. Upon arrival, CXR reviewed with left lower lobe retrocardiac infiltrate. Tmax 99.2. No leukocytosis. Chest CT shows large masslike area of consolidation involving left lung base with scattered small nodular consolidation right lung base; likely infectious etiology. -Check blood cultures, sputum culture -high risk for TB (homeless, prior incarceration, +pneumonia), MTB PCR negative -Consult ID, appreciate recommendations. -Supportive treatment with O2 and nebs as needed. -Continue antibiotics with IV Vanco, IV Zosyn, bactrim, and azithro, per ID Endocarditis: Discussed with cardiology Dr. Kwon, endocarditis suspected on echo. -plan for JEREMY hopefully today -keep NPO for now -continue antibiotics as above -monitor blood cultures, NGTD Gastroenteritis: Patient has been having nausea, vomiting, and diarrhea 2 days. -Check stool studies with AFB, enteric pathogens, cryptosporidium, cyclospora , fungus, WBC, Cdiff PCR -Supportive treatment with IVF, Antiemetics as needed. -Monitor Is&Os Acute kidney injury: Creatinine 1.31, previously 0.9 on 02/29/16. Likely secondary to dehydration from GI losses. -Give IVF. -Repeat BMP with improvement, Cr 0.87 -Avoid nephrotoxins HIV/AIDS: Reports previously compliant, however has been off medications due to social situation for the past 34 months. Last CD4 count less than 50 a few months ago, per patient. -Check lymphocyte profile. -ID consulted, appreciate recommendations. Skin lesions: May need biopsy. -Follow-up ID recommendations. -continue contact isolation Moderate protein calorie malnutrition: BMI 16.4. Albumin 2.3. -Add boost to meals. -Consult dietitian. Right Hallux Paronychia vs Abscess: -consult podiatry DVT prophylaxis: SCDs Discharge Planning Discharge pending further work up, treatment, and clinical improvement. Not yet ready for discharge. Possibly in 3-5days. Sonja Castillo PA-C Dec 16, 2016 11:11
--- NOTE | 2016-12-16 13:12 | ECHRPT ---
Indication: endocarditis CONCLUSIONS The left ventricular systolic function is normal with an estimated ejection fraction in the range of 55-60%. Mild mitral valve regurgitation. Mobile structure on the right coronary cusp, consistent with vegetation . Mild aortic valve regurgitation. Questionable small mobile structure, possible vegetation. There is mild tricuspid valve regurgitation. BP: / HR: Rhythm: MEASUREMENTS (Male / Female) Normal Values Technical Quality:Good 2D ECHO LV Diastolic Diameter PLAX 5.3 cm 4.2 - 5.9 / 3.9 - 5.3 cm LV Systolic Diameter PLAX 3.9 cm IVS Diastolic Thickness 0.8 cm 0.6 - 1.0 / 0.6 - 0.9 cm LVPW Diastolic Thickness 1.1 cm 0.6 - 1.0 / 0.6 - 0.9 cm LV Relative Wall Thickness 0.4 M-MODE Aortic Root Diameter MM 2.9 cm LA Systolic Diameter MM 3.0 cm LA Ao Ratio MM 1.0 AV Cusp Separation MM 2.4 cm DOPPLER Mitral E Point Velocity 81.4 cm/s Mitral A Point Velocity 79.5 cm/s Mitral E to A Ratio 1.0 LV E' Lateral Velocity 5.9 cm/s Mitral E to LV E' Lateral Ratio 13.7 LV E' Septal Velocity 7.0 cm/s Mitral E to LV E' Septal Ratio 11.6 TR Peak Velocity 260.0 cm/s TR Peak Gradient 27.0 mmHg FINDINGS LEFT VENTRICLE Normal left ventricular size. Wall thickness is normal. The left ventricular systolic function is normal with an estimated ejection fraction in the range of 55-60%. No regional wall motion abnormalities are present. RIGHT VENTRICLE Normal right ventricular size and systolic function. LEFT ATRIUM The left atrial size is normal. RIGHT ATRIUM The right atrial size is normal. ATRIAL SEPTUM Normal atrial septal thickness without atrial level shunting by limited color doppler interrogation. AORTA The aortic root and proximal ascending aorta are normal in size on limited imaging. MITRAL VALVE Grossly normal appearing mitral valve Mild mitral valve regurgitation. AORTIC VALVE Trileaflet aortic valve. Mobile structure on the right coronary cusp, consistent with vegetation Mild aortic valve regurgitation. TRICUSPID VALVE Grossly normal tricuspid valve. Questionable small mobile structure, possible vegetation There is mild tricuspid valve regurgitation. The estimated pulmonary arterial pressure is _27_ mmHg. PULMONARY VALVE The pulmonary valve is not well visualized. VESSELS The inferior vena cava is normal in size. PERICARDIUM No pericardial effusion. Vaibhav Kwon DO (Electronically Signed) Final Date:16 December 2016 13:11
[2016-12-16] MEDS ORDERED: PHARMACY ORDERED LAB ONE (17:45)
[2016-12-16] MEDS: CALCIUM CARBONATE 500 MG CHEWABLE TAB CHEW SCH (20:49)
[2016-12-17] VITALS (9 sets, daily range): BP systolic 97–116; BP diastolic 56–74; PULSE 61–78; RESP 15–19; TEMP 97–99; O2SAT 94–100
[2016-12-17] MEDS: PIPERACIL-TAZO 4.5 GM PREMIX 100 ML IV SCH ×2 (05:50→11:32)
--- NOTE | 2016-12-17 06:16 | MB ---
cc: VAIBHAV FRANCIS DO DATE OF CONSULTATION December 16, 2016 REASON FOR CONSULTATION Concern for endocarditis. HISTORY OF PRESENT ILLNESS Kelsie Brady is a pleasant 41-year-old male who presented to [facility] Emergency Room with flu-like illness. He states that he has had general malaise for the past two days. He has also had a productive cough. He has had nausea and vomiting twice. He has also had some watery diarrhea every time he ate over the past few days. At home he states his temperature was 103. He has noted some shaking chills. During his workup an echocardiogram was done which showed a mobile structure on the right coronary cusp of the aortic valve consistent with vegetation as well as a questionable small mobile structure on the tricuspid valve. Because of this, I was asked to see the patient. PAST MEDICAL HISTORY 1. HIV diagnosed in 2008. 2. History of syphilis. 3. History of hepatitis C. 4. History of IV drug abuse. PAST SURGICAL HISTORY Right ankle surgery. ALLERGIES No known drug allergies. MEDICATIONS The patient is on a medication for his HIV but is unsure what it is. FAMILY HISTORY Denies premature coronary artery disease or sudden cardiac within the family. SOCIAL HISTORY The patient smokes half-a-pack of cigarettes per day. He rarely drinks alcohol. He does admit to marijuana and recent cocaine abuse. He does have a history of IV drug abuse. REVIEW OF SYSTEMS 14 systems were reviewed including osteopathic pertinent positives and negatives above, otherwise negative. PHYSICAL EXAMINATION VITAL SIGNS: Temperature 99.2, heart rate 73, blood pressure 107/64, respirations 16, pulse ox 98% on room air. GENERAL: The patient appears well, in no acute distress, alert, awake and oriented x 3. Extraocular muscles intact. Mucous membranes moist. NECK: Supple. No JVD at 45 degrees. No carotid bruits heard bilaterally. Carotid upstroke is brisk in nature. HEART: Regular rate and rhythm. Positive first and second heart sounds with no noted murmurs, gallops or rubs. LUNGS: Clear to auscultation bilaterally but mildly decreased at the bases. ABDOMEN: Soft, nontender, nondistended. No organomegaly noted. EXTREMITIES: No clubbing, cyanosis or edema. SKIN: Warm, dry and intact. NEUROLOGICALLY: No focal deficits. OSTEOPATHICALLY: No kyphoscoliosis, lordosis or paraspinal tender points. LABORATORY FINDINGS Hemoglobin 10.9, hematocrit 31.8, platelets 177. Potassium 3.9, BUN 13, creatinine 0.87. ECHOCARDIOGRAM (December 16, 2016) Ejection fraction 55-60%, mild mitral regurgitation. Mobile structure on the right coronary cusp of the aortic valve consistent with vegetation with mild aortic valve regurgitation. Questionable small mobile structure on the tricuspid valve with mild tricuspid regurgitation. IMPRESSIONS 1. Pneumonia. 2. Sepsis. 3. Possible endocarditis on echocardiogram as above. 4. History of HIV. 5. Gastroenteritis. RECOMMENDATIONS 1. Mr. Brady appears to possibly have endocarditis noted on his echocardiogram. I have recommended that he undergo JEREMY for further determination as well as possible sequelae of his endocarditis if there. 2. The risks, benefits and alternatives were explained to him and he consents as such. 3. The patient ate lunch and so is unable to do today. We will plan on doing in the morning. He will be n.p.o. after midnight. 4. I spoke to him for greater than 3 minutes about tobacco cessation. 5. Further recommendations will be made based on the hospital course. Thank you for allowing me to see Kelsie Brady. If there are any questions, please do not hesitate to call. Vaibhav Francis DO VGP/SSB /5:35 PM /6:04 AM
[2016-12-17] MEDS: VANCOMYCIN 1,000 MG/NS 250 ML IV SCH ×6 (07:02→20:44)
[2016-12-17] MEDS: SODIUM CHLORIDE 0.9% FLUSH 10 ML FLUSH IV FLUSH SCH ×2 (07:41→20:43)
[2016-12-17] MEDS: AZITHROMYCIN 250 MG TAB PO SCH (07:41)
[2016-12-17] MEDS: CALCIUM CARBONATE 500 MG CHEWABLE TAB CHEW SCH ×2 (07:41→20:44)
[2016-12-17] MEDS: SODIUM CHLOR 0.9% 1000 ML INJ 1,000 ML IV SCH ×2 (07:44→18:38)
--- NOTE | 2016-12-17 10:32 | ECHRPT ---
Indication: CONCLUSIONS The left ventricular systolic function is normal with an estimated ejection fraction in the range of 55-60%. [id number] mitral valve regurgitation with 2-3 jets noted. Findings consistent with vegetation on the non-coronary cusp of the aortic valve. Appears to be 0.8 cm by 0.8cm. Trace aortic valve regurgitation. BP: / HR: Rhythm: Sinus MEASUREMENTS (Male / Female) Normal Values Technical Quality:Good DOPPLER MR Peak Velocity 512.0 cm/s MR Peak Gradient 104.9 mmHg Medications Complications None Proc. Components FINDINGS LEFT VENTRICLE Normal left ventricular size. The left ventricular systolic function is normal with an estimated ejection fraction in the range of 55-60%. No regional wall motion abnormalities are present. RIGHT VENTRICLE The right ventricular size is normal. LEFT ATRIUM The left atrial size is normal. RIGHT ATRIUM The right atrium is not well visualized. ATRIAL APPENDAGES Normal left atrial appendage size with no evidence of thrombus formation. ATRIAL SEPTUM No atrial level shunt is demonstrated by color flow Doppler or agitated saline imaging. There was redundancy of the interatrial septum, with borderline criterial for septal aneurysm (benig n finding). AORTA The aortic root and proximal ascending aorta are not well visualized. MITRAL VALVE Structurally normal mitral valve. [id number] mitral valve regurgitation with 2-3 jets noted. No mitral valve stenosis. No evidence of vegetation AORTIC VALVE Trileaflet aortic valve. No aortic valve stenosis. Trace aortic valve regurgitation. Findings consistent with vegetation on the non-coronary cusp of the aortic valve. Appears to be 0.8 cm by 0.8cm. TRICUSPID VALVE Structurally normal tricuspid valve. There is trace tricuspid valve regurgitation. No tricuspid valv e stenosis. No evidence of vegetation VESSELS The pulmonary valve is not well visualized. No pulmonary valve regurgitation. Vaibhav Kwon DO (Electronically Signed) Final Date:17 December 2016 10:31
--- NOTE | 2016-12-17 11:26 | PD.CARD.PN ---
Subjective Subjective Remarks No events overnight No chest pain SOB better Post-JEREMY Objective Medications Current Medications Medications (Trade) Dose Ordered Sig/Meet Route Start Time Stop Time Status Last Admin (NS 1000 ml Inj) 1,000 ml @ 100 mls/hr Q10H IV 12/15/16 07:45 12/17/16 07:44 (NS Flush) 2 ml UNSCH PRN IV FLUSH 12/15/16 07:45 (NS Flush) 2 ml BID IV FLUSH 12/15/16 09:00 12/15/16 20:55 (Tylenol) 650 mg Q4H PRN PO 12/15/16 07:45 (Zofran Inj) 4 mg Q6H PRN IVP 12/15/16 07:45 (Narcan Inj) 0.4 mg UNSCH PRN IV 12/15/16 07:45 (Milk Of Magnesia Liq) 30 ml Q12H PRN PO 12/15/16 07:45 (Senokot) 17.2 mg Q12H PRN PO 12/15/16 07:45 (Dulcolax Supp) 10 mg DAILY PRN RECTAL 12/15/16 07:45 (Lactulose Liq) 30 ml DAILY PRN PO 12/15/16 07:45 (Bactrim Ds 800-160 Mg) 1 tab MoWeFr@09 PO 12/16/16 09:00 12/16/16 08:45 Azithromycin 500 mg 500 mg DAILY PO 12/15/16 16:30 12/17/16 07:41 Piperacillin Sod/ Tazobactam Sod 100 ml @ 200 mls/hr Q6H IV 12/15/16 18:00 12/17/16 05:50 (Vancomycin Consult Pharmacy) 0 ml @ 0 mls/hr UNSCH OTHER 12/15/16 16:30 Calcium Carbonate 500 mg 500 mg Q12HR CHEW 12/16/16 21:00 12/17/16 07:41 (Vancomycin Inj/ NS 250 ml Inj) 250 ml @ 250 mls/hr Q8H IV 12/17/16 14:00 Miscellaneous Information SPECIFIC LAB TO BE DRAWN:VANCOMYCIN TROUGH DATE TO... ONCE ONCE .XX 12/18/16 05:45 12/18/16 05:46 Vital Signs / I&O Vital Signs Date Time Temp Pulse Resp B/P Pulse Ox O2 Delivery O2 Flow Rate FiO2 8/1/17 10:46 94 12/17/16 09:43 97.0 67 18 97/57 94 12/17/16 08:00 Room Air 12/17/16 04:00 Room Air 12/17/16 04:00 98.6 66 19 109/61 98 12/17/16 00:00 69 12/17/16 00:00 Room Air 12/17/16 00:00 99.0 69 15 108/61 95 12/16/16 23:47 98.8 66 18 112/68 95 12/16/16 20:48 97.0 72 18 115/67 98 12/16/16 13:40 99.2 73 16 107/64 98 I/O 12/16/16 12/16/16 12/16/16 12/17/16 12/17/16 12/17/16 07:00 15:00 23:00 07:00 15:00 23:00 Intake Total 0 ml Output Total 460 ml Balance -460 ml Intake Oral 0 ml Output Urine Total 460 ml Physical Exam GENERAL: NAD, AAOx3 SKIN: Warm and dry. HEAD: Atraumatic. Normocephalic. EYES: Pupils equal and round. No scleral icterus. No injection or drainage. ENT: No nasal bleeding or discharge. Mucous membranes pink and moist. NECK: Trachea midline. No JVD. CARDIOVASCULAR: Regular rate and rhythm. RESPIRATORY: No accessory muscle use. Rhonchi bilaterally GASTROINTESTINAL: Abdomen soft, non-tender, nondistended. Hepatic and splenic margins not palpable. MUSCULOSKELETAL: Extremities without clubbing, cyanosis, or edema. No obvious deformities. NEUROLOGICAL: Awake and alert. No obvious cranial nerve deficits. Motor grossly within normal limits. Five out of 5 muscle strength in the arms and legs. Normal speech. PSYCHIATRIC: Appropriate mood and affect; insight and judgment normal. Laboratory Laboratory Tests Test 12/16/16 17:48 Vancomycin Level Trough 6.6 MCG/ML Assessment and Plan Problem List: (1) Sepsis associated with AIDS (2) HIV (human immunodeficiency virus infection) (3) Pneumonia (4) Diarrhea (5) Endocarditis of aortic valve Assessment and Plan 1) TTE showing possible endocarditis JEREMY today showing endocarditis on the non-coronary cusp of the aortic valve ( 0.8cm x 0.8cm) with trace AR 2) Sepsis/PNA 3) Discussed results with Vaibhav Covarrubias DO Dec 17, 2016 11:26
[2016-12-17 13:57] LABS: CRYPTOCOCCUS ANTIGEN Negative (Negative)
--- NOTE | 2016-12-17 14:24 | HHI.PR ---
Subjective Remarks Follow up for endocarditis. The patient is asleep upon my arrival. He denies any fevers/chills, chest pain, shortness of breath, cough, abdominal pain, or nausea/vomiting. He states his diarrhea is improving, only 1 episode so far today. He is tolerating oral intake. Discussed extensively diagnosis of endocarditis and need for penitentiary antibiotics, patient verbalized understanding. Objective Vitals Vital Signs Date Time Temp Pulse Resp B/P Pulse Ox O2 Delivery O2 Flow Rate FiO2 12/17/16 12:51 Room Air 12/17/16 12:02 61 12/17/16 12:00 98.0 71 18 111/56 97 12/17/16 10:46 94 12/17/16 09:43 97.0 67 18 97/57 94 12/17/16 08:00 Room Air 12/17/16 04:00 Room Air 12/17/16 04:00 98.6 66 19 109/61 98 12/17/16 00:00 69 12/17/16 00:00 Room Air 12/17/16 00:00 99.0 69 15 108/61 95 12/16/16 23:47 98.8 66 18 112/68 95 12/16/16 20:48 97.0 72 18 115/67 98 I/O 12/16/16 12/16/16 12/16/16 12/17/16 12/17/16 12/17/16 07:00 15:00 23:00 07:00 15:00 23:00 Intake Total 0 ml 620 ml Output Total 460 ml Balance -460 ml 620 ml Intake Oral 0 ml IV Total 620 ml Output Urine Total 460 ml Result Diagram: 12/16/16 0512/16/16 0523 Imaging Last Impressions Chest X-Ray 12/15/16 0528 Signed Impressions: Service Date/Time: Thursday, December 15, 2016 05:25 - CONCLUSION: Infiltrate left lower lobe retrocardiac region possible pneumonia Salinas Catalan MD Head CT 12/15/16 0000 Signed Impressions: Service Date/Time: Thursday, December 15, 2016 19:58 - CONCLUSION: Negative CT of the brain with and without contrast. Donn Bahena MD Foot X-Ray 12/15/16 0000 Signed Impressions: Service Date/Time: Thursday, December 15, 2016 17:35 - CONCLUSION: Negative exam. Donn Bahena MD Chest CT 12/15/16 0000 Signed Impressions: Service Date/Time: Thursday, December 15, 2016 19:58 - CONCLUSION: 1. Large masslike area of consolidation involving the left lung base with scattered areas of small nodular like consolidation within the right lung base. Infectious etiology most likely. Donn Randhawa Jr., MD Abdomen/Pelvis CT 12/15/16 0000 Signed Impressions: Service Date/Time: Thursday, December 15, 2016 19:58 - CONCLUSION: 1. Greater than 5 cm masslike lesion in the left lower lobe. Patchy infiltrates in the right lower lobe. 2. Moderately severe hydronephrosis on the left side, similar to a prior CT in 2015. 3. Almost complete loss of intra-abdominal and subcutaneous fat. Donn Bahena MD Objective Remarks GENERAL: Pleasant thin middle aged AA male patient in [facility]. SKIN: Warm and dry. Multiple diffuse skin lesions/abrasions with superficial healing ulcers; no active drainage. HEENT: Normocephalic. Atraumatic.Pupils equal and round. Mucous membranes pink and moist. NECK: Supple. Trachea midline. CARDIOVASCULAR: Regular rate and rhythm. S1, S2 noted. No murmur appreciated. RESPIRATORY: No accessory muscle use. Scattered rhonchi, worse at right mid- lower lobes, no wheezing/crackles. GASTROINTESTINAL: Abdomen soft, non-tender, nondistended. Normoactive bowel sounds x4. MUSCULOSKELETAL: No obvious deformities. Extremities without clubbing, cyanosis , or edema. Right hallux tender edema surrounding medial nail bed, no active drainage. NEUROLOGICAL: Awake and alert. No obvious cranial nerve deficits. Motor grossly within normal limits. Normal speech. PSYCHIATRIC: Appropriate mood and affect; insight and judgment normal. Medications and IVs Current Medications Medications (Trade) Dose Ordered Sig/Meet Route Start Time Stop Time Status Last Admin (NS 1000 ml Inj) 1,000 ml @ 100 mls/hr Q10H IV 12/15/16 07:45 12/17/16 07:44 (NS Flush) 2 ml UNSCH PRN IV FLUSH 12/15/16 07:45 (NS Flush) 2 ml BID IV FLUSH 12/15/16 09:00 12/15/16 20:55 (Tylenol) 650 mg Q4H PRN PO 12/15/16 07:45 (Zofran Inj) 4 mg Q6H PRN IVP 12/15/16 07:45 (Narcan Inj) 0.4 mg UNSCH PRN IV 12/15/16 07:45 (Milk Of Magnesia Liq) 30 ml Q12H PRN PO 12/15/16 07:45 (Senokot) 17.2 mg Q12H PRN PO 12/15/16 07:45 (Dulcolax Supp) 10 mg DAILY PRN RECTAL 12/15/16 07:45 (Lactulose Liq) 30 ml DAILY PRN PO 12/15/16 07:45 (Bactrim Ds 800-160 Mg) 1 tab MoWeFr@09 PO 12/16/16 09:00 12/16/16 08:45 Azithromycin 500 mg 500 mg DAILY PO 12/15/16 16:30 12/17/16 07:41 Piperacillin Sod/ Tazobactam Sod 100 ml @ 200 mls/hr Q6H IV 12/15/16 18:00 12/17/16 11:32 (Vancomycin Consult Pharmacy) 0 ml @ 0 mls/hr UNSCH OTHER 12/15/16 16:30 Calcium Carbonate 500 mg 500 mg Q12HR CHEW 12/16/16 21:00 12/17/16 07:41 (Vancomycin Inj/ NS 250 ml Inj) 250 ml @ 250 mls/hr Q8H IV 12/17/16 14:00 12/17/16 13:44 Miscellaneous Information SPECIFIC LAB TO BE DRAWN:VANCOMYCIN TROUGH DATE TO... ONCE ONCE .XX 12/18/16 05:45 12/18/16 05:46 A/P Problem List: (1) Pneumonia ICD Code: J18.9 Status: Acute (2) Diarrhea ICD Code: R19.7 Status: Acute (3) HIV (human immunodeficiency virus infection) ICD Code: B20 Status: Acute (4) Sepsis associated with AIDS ICD Code: B20 Status: Acute Assessment and Plan 41-year-old male with a past medical history of HIV/AIDS, syphillis, hepatitic B /C, and borderline DM who presented complaining of "flu-like" illness Pneumonia, suspected Sepsis: patient with HIV/AIDS, immunocompromised, may not present with SIRS criteria, with fever Tmax 103 prior to arrival, chills, night sweats. Upon arrival, CXR reviewed with left lower lobe retrocardiac infiltrate. Tmax 99.2. No leukocytosis. Chest CT shows large masslike area of consolidation involving left lung base with scattered small nodular consolidation right lung base; likely infectious etiology. -Blood cultures with NGTD, sputum culture with heavy growth normal respiratory mary jo -high risk for TB (homeless, prior incarceration, +pneumonia) however MTB PCR negative and sputum AFB negative, can likely d/c airborne isolation? -Consult ID, appreciate recommendations. -Supportive treatment with O2 and nebs as needed. -Continue antibiotics with IV Vanco, IV Zosyn, bactrim, and azithro, per ID Endocarditis: transthoracic echocardiogram shows likely endocarditis, discussed with Dr. Kwon. -JEREMY 12/[address] Kwon showed AV vegetations, consistent with endocarditis -continue antibiotics as above -monitor blood cultures, NGTD -ID on board, will likely need ferry terminal agent antibiotics; discussed with the patient Gastroenteritis: Patient has been having nausea, vomiting, and diarrhea 2 days. -Check stool studies with AFB, enteric pathogens, cryptosporidium, cyclospora , fungus, WBC, Cdiff PCR -Supportive treatment with IVF, Antiemetics as needed. -Monitor Is&Os -diarrhea improving, patient tolerating oral intake Acute kidney injury: Creatinine 1.31, previously 0.9 on 02/29/16. Likely secondary to dehydration from GI losses. -Give IVF. -Repeat BMP with improvement, Cr 0.87, resolved -Avoid nephrotoxins HIV/AIDS: Reports previously compliant however has been off medications due to social situation for the past 34 months. Last CD4 count less than 50 a few months ago, per patient. -Check lymphocyte profile, pending -ID consulted, appreciate recommendations. -case management provided patient with information for [facility] Skin lesions: May need biopsy. -Follow-up ID recommendations. -continue contact isolation Moderate protein calorie malnutrition: BMI 16.4. Albumin 2.3. -Add boost to meals. -Consult dietitian, recommends Ensure Enlive; add double protein to meals. Right Hallux Paronychia vs Abscess: -consult podiatry DVT prophylaxis: SCDs Discharge Planning Discharge pending further work up, treatment, and clinical improvement. Not yet ready for discharge. Possibly in 3-5days after IV antibiotic infusion arranged, if possible. Sonja Castillo PA-C Dec 17, 2016 2:24 pm
--- NOTE | 2016-12-17 15:40 | HHI.IDPN ---
Subjective Subjective Remarks is a 41 y/o CM with PMHx of HIV/AIDS, h/o syphilis, h/o Hepatitis B and Hepatitis C. Patient reports he was diagnosed with HIV in 2009 and had been on treatment since then by at health dept. Last seen by him 8 months back or so. Patient also reports homelessness, h/o incarceration, h/o being Yates acted but denies active suicidal ideation. He reports his last CD4 count as less than 90 almost a year back. He reports that once he was Yates Acted he has not been employed and has been homeless on streets. He reports a steady decline in his health for last few months with generalized fatigue, decreased appetite, difficulty ambulating due to weakness but still been dragging himself. With this background patient presents with "flu-like" illness. The patient has been having generalized malaise for the past 2 days, associated productive cough. He is had nausea and vomiting 2, denies any bleeding. He's noticed painful lesions on his arms and legs. He states he's felt dehydrated. Yesterday the patient began having watery diarrhea every time he ate. He states that his temperature was 103 at home prior to admission. He continues to have shaking chills. Patient reports having lived in [place] and [place] other than [place]. Patient reports incarceration Yates Acted. Syphilis Homelessness Per review of medical records: Positive PPD, Hep C and IVDA in past. ID consulted for evaluation and Mment of Sepsis, Pneumonia, Diarrhea in a pt with HIV/AIDS. Antibiotics Zosyn IV Vanco IV Lines Line sites with no e.o infection. Past Medical History H/o being incarcerated H/o being placed in [facility]. HIV diagnosed in 2009 Reportedly borderline diabetic Syphilis Hep B or Hep B by history Allergies: Coded Allergies: No Known Allergies (Verified , 12/15/16) Objective . Vital Signs Date Time Temp Pulse Resp B/P Pulse Ox O2 Delivery O2 Flow Rate FiO2 12/17/16 12:51 Room Air 12/17/16 12:02 61 12/17/16 12:00 98.0 71 18 111/56 97 12/17/16 10:46 94 12/17/16 09:43 97.0 67 18 97/57 94 12/17/16 08:00 Room Air 12/17/16 04:00 Room Air 12/17/16 04:00 98.6 66 19 109/61 98 12/17/16 00:00 69 12/17/16 00:00 Room Air 12/17/16 00:00 99.0 69 15 108/61 95 12/16/16 23:47 98.8 66 18 112/68 95 12/16/16 20:48 97.0 72 18 115/67 98 12/16/16 12/16/16 12/17/16 15:00 23:00 07:00 Intake Total 0 ml Output Total 460 ml Balance -460 ml Intake Oral 0 ml Output Urine Total 460 ml . Laboratory Tests Test 12/16/16 05:23 White Blood Count 4.4 TH/MM3 Red Blood Count 3.70 MIL/MM3 Hemoglobin 10.9 GM/DL Hematocrit 31.8 % Mean Corpuscular Volume 86.1 FL Mean Corpuscular Hemoglobin 29.4 PG Mean Corpuscular Hemoglobin 34.1 % Concent Red Cell Distribution Width 13.8 % Platelet Count 177 TH/MM3 Mean Platelet Volume 8.6 FL Neutrophils (%) (Auto) 70.9 % Lymphocytes (%) (Auto) 16.8 % Monocytes (%) (Auto) 10.2 % Eosinophils (%) (Auto) 1.8 % Basophils (%) (Auto) 0.3 % Neutrophils # (Auto) 3.1 TH/MM3 Lymphocytes # (Auto) 0.7 TH/MM3 Monocytes # (Auto) 0.4 TH/MM3 Eosinophils # (Auto) 0.1 TH/MM3 Basophils # (Auto) 0.0 TH/MM3 CBC Comment DIFF FINAL Differential Comment Laboratory Tests Test 12/16/16 12/16/16 05:23 10:42 Sodium Level 138 MEQ/L Potassium Level 3.9 MEQ/L Chloride Level 107 MEQ/L Carbon Dioxide Level 26.5 MEQ/L Anion Gap 5 MEQ/L Blood Urea Nitrogen 13 MG/DL Creatinine 0.87 MG/DL Estimat Glomerular Filtration 118 ML/MIN Rate Random Glucose 96 MG/DL Calcium Level 7.6 MG/DL Tumor Marker Alpha Fetoprotein 2.7 NG/ML Microbiology Date/Time Procedure Status Source Growth 12/15/16 05:45 Aerobic Blood Culture - Preliminary Resulted Blood Peripheral NO GROWTH IN 2 DAYS 12/15/16 05:45 Anaerobic Blood Culture - Preliminary Resulted Blood Peripheral NO GROWTH IN 2 DAYS 12/15/16 05:45 Blood Fungal Culture Resulted Blood Peripheral Pending 12/15/16 05:45 Blood Fungal Culture Resulted Blood Peripheral Pending 12/15/16 05:50 Aerobic Blood Culture - Preliminary Resulted Blood Peripheral NO GROWTH IN 2 DAYS 12/15/16 05:50 Anaerobic Blood Culture - Preliminary Resulted Blood Peripheral NO GROWTH IN 2 DAYS 12/15/16 05:50 Cancelled Blood Peripheral 12/15/16 12:45 Acid Fast Stain - Final Resulted Sputum Expectorated Sputum NO ACID FAST BACILLI SEEN 12/15/16 12:45 Mycobacterial Culture Resulted Sputum Expectorated Sputum Pending 12/15/16 12:45 Gram Stain - Final Complete Sputum Expectorated Sputum 12/15/16 12:45 Sputum Culture - Final Complete Sputum Expectorated Sputum HEAVY GROWTH NORMAL RESPIRATORY AMNA 12/15/16 12:45 Fungal Smear - Final Resulted Sputum Expectorated Sputum NO FUNGAL ELEMENTS SEEN. 12/15/16 12:45 Fungal Culture Resulted Sputum Expectorated Sputum Pending 12/15/16 21:07 Influenza Types A,B Antigen (MICHAEL) - Final Complete Nasal Aspirate NEGATIVE FOR FLU A AND B ANTIGEN.... Imaging Last Impressions Chest X-Ray 12/15/16 0528 Signed Impressions: Service Date/Time: Thursday, December 15, 2016 05:25 - CONCLUSION: Infiltrate left lower lobe retrocardiac region possible pneumonia Salinas Catalan MD Head CT 12/15/16 0000 Signed Impressions: Service Date/Time: Thursday, December 15, 2016 19:58 - CONCLUSION: Negative CT of the brain with and without contrast. Donn Bahena MD Foot X-Ray 12/15/16 0000 Signed Impressions: Service Date/Time: Thursday, December 15, 2016 17:35 - CONCLUSION: Negative exam. Donn Bahena MD Chest CT 12/15/16 0000 Signed Impressions: Service Date/Time: Thursday, December 15, 2016 19:58 - CONCLUSION: 1. Large masslike area of consolidation involving the left lung base with scattered areas of small nodular like consolidation within the right lung base. Infectious etiology most likely. Donn Randhawa Jr., MD Abdomen/Pelvis CT 12/15/16 0000 Signed Impressions: Service Date/Time: Thursday, December 15, 2016 19:58 - CONCLUSION: 1. Greater than 5 cm masslike lesion in the left lower lobe. Patchy infiltrates in the right lower lobe. 2. Moderately severe hydronephrosis on the left side, similar to a prior CT in 2015. 3. Almost complete loss of intra-abdominal and subcutaneous fat. Donn Bahena MD Physical Exam GENERAL: Thin built AAM patient, in no apparent distress. SKIN: Skin with multiple lesions some look like abrasions, some ruptured pustules. Generalized LNpathy noted. HEAD: Atraumatic. Normocephalic. No temporal or scalp tenderness. EYES: Pupils equal round and reactive. Extraocular motions intact. No scleral icterus. No injection or drainage. ENT: Nose without bleeding, purulent drainage or septal hematoma. Throat without erythema, tonsillar hypertrophy or exudate. Uvula midline. Airway patent. NECK: Trachea midline. Supple, nontender, no meningeal signs. CARDIOVASCULAR: Regular rate and rhythm without murmurs, gallops, or rubs. RESPIRATORY: Clear to auscultation. Breath sounds equal bilaterally but decreased in the bases. GASTROINTESTINAL: Abdomen soft, non-tender, nondistended. MUSCULOSKELETAL: Right great toe with swelling and tenderness, abrasions and skin tear noted as well. Tender to soft touch. NEUROLOGICAL: Awake and alert. Grossly non focal Psych: cooperative IV line sites with no e.o infection. Assessment & Plan Remarks Possible Sepsis present on admission (h/o fever, chills, night sweats in an advanced HIV/AIDS pt with Pneumonia, Immune compromised may not manifest SIRS). Prior Rx with HAART now off meds and CD4 less than 50 per pt few months back. Pneumonia DDX: likely septic emboli given endocarditis. Skin lesions: likely bacterial appear improved with Vanco IV HIV AIDS H/o Syphilis Recs Follow AFB blood culture Follow Fungal blood culture Negative Hepatitis panel DC Airborne isolation MTB PCR negative. DC contact isolation skin lesions dried up. RN instructed to get patient to shower today including hair wash. Follow cultures Follow clinically. Follow Stool studies Negative serum Cryptococcal ag RPR negative. Follow CD4/CD8 count Follow Viral load Follow Genotype with reflex to Phenotype. [email or web address] . Cari Burch MD Dec 17, 2016 15:40
--- NOTE | 2016-12-17 17:38 | MB ---
cc: JERI MATTSON DPM DATE OF CONSULTATION 12/17/16 1977 REASON FOR CONSULTATION Podiatric related to right hallux pain. HISTORY OF PRESENT ILLNESS The patient is a 41-year-old male with a complex medical history including HIV AIDS, history of symphilis, hep C, hep B. The patient was seen at bedside resting comfortably. On evaluation and discussion, he denies any pain to his foot. The only thing he relates is a callus on the bottom of the foot. He denies any nail pain or trauma to the toe. PAST MEDICAL HISTORY Per HPI SOCIAL HISTORY Yates Acted. The patient reports incarceration having lived previously in [place], [place] and [place]. Positive homelessness. REVIEW OF SYSTEMS Six point review of systems unremarkable. PAST SURGICAL HISTORY Right ankle surgery. MEDICATIONS Per HPI. PHYSICAL EXAMINATION Right DP and PT palpable +2/4. Right hallux - There is no pain on nail plate, no fluctuance, no erythema, no edema. He is hyperpigmented. There is a callus to the plantar medial aspect of the digit. There is no erythema, no drainage. No acute sign of infection. There is no tenderness on palpation. Protective sensation is grossly intact. Range of motion intact. ASSESSMENT/PLAN 1. Podiatric related: Right hallux keratoma, 2. No acute sign of nail plate infection. PLAN Recommend a Urea based cream, offloading and weight bearing with protective shoe gear. There is no abscess or acute sign of infection. Thank you for the kind consult. Jeri Mattson DPM SR/ /5:21 PM /5:26 PM DION
[2016-12-17] MEDS: LACTIC ACID (AMMONIUM LACTATE) 12% LOTION 225 GM BTL TOPICAL SCH (20:44)
[2016-12-18] VITALS (8 sets, daily range): BP systolic 106–122; BP diastolic 60–80; PULSE 62–91; RESP 18; TEMP 98.3–98.8; O2SAT 89–99
[2016-12-18 02:42] LABS: C. DIFF EPI 027 PRESUMPTIVE NEGATIVE (NEGATIVE); C. DIFF TOXIN PCR NEGATIVE (NEGATIVE)
[2016-12-18 03:53] LABS: CD 19 PERCENT 10 % (6-29); CD3 ABSOLUTE 517 (840-3060); CD4/CD8 RATIO 0.4 (0.86-5.00); CD8 ABSOLUTE 349 (180-1170); LYMPHOCYTES, ABSOLUTE 636 (850-3900)
[2016-12-18] MEDS: VANCOMYCIN 1,000 MG/NS 250 ML IV SCH ×6 (05:31→20:56)
[2016-12-18] MEDS ORDERED: PHARMACY ORDERED LAB ONE (05:45)
[2016-12-18] MEDS: SODIUM CHLOR 0.9% 1000 ML INJ 1,000 ML IV SCH ×2 (05:55→14:25)
[2016-12-18 06:03] LABS: VANCOMYCIN TROUGH 15.2 MCG/ML (5.0-10.0)
[2016-12-18] MEDS: SODIUM CHLORIDE 0.9% FLUSH 10 ML FLUSH IV FLUSH SCH ×2 (09:00→20:56)
[2016-12-18] MEDS: LACTIC ACID (AMMONIUM LACTATE) 12% LOTION 225 GM BTL TOPICAL SCH ×2 (09:01→20:57)
[2016-12-18] MEDS: CALCIUM CARBONATE 500 MG CHEWABLE TAB CHEW SCH ×2 (09:01→20:56)
[2016-12-18] MEDS: AZITHROMYCIN 250 MG TAB PO SCH (09:02)
[2016-12-18] MEDS: SULFAMETHOXAZOLE-TRIMETHOPRIM DS 800-160 MG TAB PO SCH (09:02)
--- NOTE | 2016-12-18 13:16 | PD.PSY.CON ---
Provisional Diagnosis Admission Date Dec 16, 2016 at 10:56 Lamar I. Adjustment disorder with depressed mood, psychological factors interfering with medical treatment/condition Lamar II. Deferred Lamar III. HIV, hepatitis B, hepatitis C History of Present Illness Service Psychiatry Consult Requested By Reason for Consult Assessed decision-making capacity Primary Care Physician No Primary Care Physician HPI The patient is a 41 year old man, homeless, single, unemployed , with psychiatric history of self reported bipolar disorder, ER visits under [facility] act, no previous psychiatric hospitalizations, no previous suicidal attempts, with medical history of HIV/AIDS, h/o syphilis, h/o Hepatitis B and Hepatitis C. hospitalized due to reported steady decline in his health for last few months with generalized fatigue, decreased appetite, difficulty ambulating due to weakness but still been dragging himself. With this background patient presents with "flu-like" illness. The patient has been having generalized malaise for the past 2 days, associated productive cough. He states that his temperature was 103 at home prior to admission. He continues to have shaking chills. Admitted due to pneumonia, possible sepsis, endocarditis, KEHINDE. Consulted to psychiatry due to sepsis decision-making capacity to refuse treatment. On psychiatric evaluation today patient is calm, cooperative and pleasant. Patient explains that he has not refused to continue with the treatment, but he has been very concerned about the length of the hospitalization needed for his IV antibiotics. He says that he is currently homeless, that the only support he has is his mother, his mother is moving to [place] soon and he won't have eating up house to sleep. Patient clarifies that he knows that he has about. In his blood, he has endocarditis and his heart is affected. He also mentioned that he has pneumonia and AIDS. Patient expresses that he is aware that if he stopped treatment he will " and I don't want to ". Patient reports good mood, denies depressive symptoms , denies anhedonia, denies hopelessness, denies helplessness, denies suicidal and homicidal ideation, he denies visual and auditory hallucinations. He is logical, coherent and relevant. Oriented 3, no attention deficit, no gross cognitive impairment present. Patient says that he is open for different alternative of treatment, but if there is no choice but his stay in the hospital in order oriented and better he will stay. Patient denies the use of illicit drugs and alcohol. t Review of Systems Constitutional: COMPLAINS OF: Fatigue, DENIES: Diaphoretic episodes, Fever, Weight gain, Weight loss, Chills, Dizziness, Change in appetite, Night Sweats Endocrine: DENIES: Heat/cold intolerance, Polydipsia, Polyuria, Polyphagia Eyes: DENIES: Blurred vision, Diplopia, Eye inflammation, Eye pain, Vision loss , Photosensitivity, Double Vision Ears, nose, mouth, throat: DENIES: Tinnitus, Hearing loss, Vertigo, Nasal discharge, Oral lesions, Throat pain, Hoarseness, Ear Pain, Running Nose, Epistaxis, Sinus Pain, Toothache, Odynophagia Respiratory: COMPLAINS OF: Sputum production, Shortness of breath, DENIES: Apneas, Cough, Snoring, Wheezing, Hemoptysis Cardiovascular: COMPLAINS OF: Palpitations, DENIES: Chest pain, Syncope, Dyspnea on Exertion, PND, Lower Extremity Edema, Orthopnea, Claudication Genitourinary: DENIES: Sexual dysfunction, Urinary frequency, Urinary incontinence, Urgency, Hematuria, Dysuria, Nocturia, Penile Discharge, Testicular Pain, Testicular Swelling Musculoskeletal: DENIES: Joint pain, Muscle aches, Stiffness, Joint Swelling, Back pain, Neck pain Integumentary: DENIES: Abnormal pigmentation, Nail changes, Pruritus, Rash Neurologic: DENIES: Abnormal gait, Headache, Localized weakness, Paresthesias, Seizures, Speech Problems, Tremor, Poor Balance Psychiatric: DENIES: Anxiety, Confusion, Mood changes, Depression, Hallucinations, Agitation, Suicidal Ideation, Homicidal Ideation, Delusions Past Family Social History Coded Allergies: No Known Allergies (Verified , 12/15/16) Reported Medications [HIV med] No Conflict Check 12/15/16 Current Medications Medications (Trade) Dose Ordered Sig/Meet Route Start Time Stop Time Status Last Admin (NS 1000 ml Inj) 1,000 ml @ 100 mls/hr Q10H IV 12/15/16 07:45 12/18/16 05:55 (NS Flush) 2 ml UNSCH PRN IV FLUSH 12/15/16 07:45 (NS Flush) 2 ml BID IV FLUSH 12/15/16 09:00 12/15/16 20:55 (Tylenol) 650 mg Q4H PRN PO 12/15/16 07:45 (Zofran Inj) 4 mg Q6H PRN IVP 12/15/16 07:45 (Narcan Inj) 0.4 mg UNSCH PRN IV 12/15/16 07:45 (Milk Of Magnesia Liq) 30 ml Q12H PRN PO 12/15/16 07:45 (Senokot) 17.2 mg Q12H PRN PO 12/15/16 07:45 (Dulcolax Supp) 10 mg DAILY PRN RECTAL 12/15/16 07:45 (Lactulose Liq) 30 ml DAILY PRN PO 12/15/16 07:45 (Bactrim Ds 800-160 Mg) 1 tab MoWeFr@09 PO 12/16/16 09:00 12/18/16 09:02 Azithromycin 500 mg 500 mg DAILY PO 12/15/16 16:30 12/18/16 09:02 (Vancomycin Consult Pharmacy) 0 ml @ 0 mls/hr UNSCH OTHER 12/15/16 16:30 Calcium Carbonate 500 mg 500 mg Q12HR CHEW 12/16/16 21:00 12/18/16 09:01 (Vancomycin Inj/ NS 250 ml Inj) 250 ml @ 250 mls/hr Q8H IV 12/17/16 14:00 12/18/16 05:31 (Lac-Hydrin 12% Lotion) 1 applic BID TOPICAL 12/17/16 21:00 12/18/16 09:01 Miscellaneous Information SPECIFIC LAB TO BE DRAWN:VANCOMYCIN TROUGH DATE TO... ONCE ONCE .XX 12/20/16 05:45 12/20/16 05:46 Family History Patient denies family history Social History He was born and raised in [place], he is unemployed, is single, he is homeless, his highest level of education is 11th grade Patient's Strengths (min. 2) Verbal communication Physical Exam On physical exam, no EPS, no tremors, no withdrawal, no stiffness present Vital Signs Vital Signs Date Time Temp Pulse Resp B/P Pulse Ox O2 Delivery O2 Flow Rate FiO2 12/18/16 12:38 Room Air 12/18/16 12:28 69 12/18/16 08:00 98.4 18 116/60 97 12/17/16 17:43 21 I/O 12/17/16 12/17/16 12/18/16 08:00 16:00 00:00 Intake Total 0 ml 1100 ml 713 ml Output Total 460 ml Balance -460 ml 1100 ml 713 ml Lab Results Laboratory Tests Test 12/16/16 05:23 White Blood Count 4.4 TH/MM3 Red Blood Count 3.70 MIL/MM3 Hemoglobin 10.9 GM/DL Hematocrit 31.8 % Mean Corpuscular Volume 86.1 FL Mean Corpuscular Hemoglobin 29.4 PG Mean Corpuscular Hemoglobin 34.1 % Concent Red Cell Distribution Width 13.8 % Platelet Count 177 TH/MM3 Mean Platelet Volume 8.6 FL Neutrophils (%) (Auto) 70.9 % Lymphocytes (%) (Auto) 16.8 % Monocytes (%) (Auto) 10.2 % Eosinophils (%) (Auto) 1.8 % Basophils (%) (Auto) 0.3 % Neutrophils # (Auto) 3.1 TH/MM3 Lymphocytes # (Auto) 0.7 TH/MM3 Monocytes # (Auto) 0.4 TH/MM3 Eosinophils # (Auto) 0.1 TH/MM3 Basophils # (Auto) 0.0 TH/MM3 CBC Comment DIFF FINAL Differential Comment Laboratory Tests Test 12/16/16 12/16/16 05:23 10:42 Sodium Level 138 MEQ/L Potassium Level 3.9 MEQ/L Chloride Level 107 MEQ/L Carbon Dioxide Level 26.5 MEQ/L Anion Gap 5 MEQ/L Blood Urea Nitrogen 13 MG/DL Creatinine 0.87 MG/DL Estimat Glomerular Filtration 118 ML/MIN Rate Random Glucose 96 MG/DL Calcium Level 7.6 MG/DL Tumor Marker Alpha Fetoprotein 2.7 NG/ML Mental Status Examination Appearance man, chronically ill, fair hygiene,, calm and cooperative Speech: Unremarkable Orientation: x3 Memory: Unremarkable Thought Process: Logical Thought Content: Unremarkable Hallucination Type: None Suicidal Ideation: No Previous Suicide Attempts: No Homicidal Ideation: No Previous Homicide Attempts: No Insight: Good Judgment: WNL Affect: Good Mood: Appropriate Motor Activity: Normal gait Assessment & Plan Problem List: (1) Adjustment disorder with depressed mood Assessment & Plan: At the moment of this evaluation the patient does not present any acute, concerning her significant evidence of depressive symptoms, anxiety, raisa or psychosis. Patient denies suicidal and homicidal ideation, he denies visual and auditory hallucinations. Patient is calm, cooperative and pleasant. She is logical coherent and relevant. He is oriented 3, without no attention deficit, no fluctuation of consciousness, no gross cognitive impairment present. Patient seems to have a good understanding and appreciation of his current underlying acute/chronic medical conditions. He also seems to be aware of the consequences of not following medical recommendations and not taking medications. He has a clear choice of following recommendations, even though he is concerned about the length of hospitalization needed for antibiotic therapy. Patient is open to explore alternative for the treatment, but if the only alternative was hospitalization he will follow. At this moment the patient doesn't have any psychiatric contraindication to participate in medical decision and he keeps his decision- making capacity as at this moment. He does not need any immediate psychiatric intervention. Extensive support, motivation and psychoeducation provided. Consult appreciated. ICD Code: F43.21 Assessment & Plan Estimated LOS: days Jeremy Lin MD Dec 18, 2016 13:16
[2016-12-18 16:42] LABS: BARTONELLA HENSELAE IGG <1:128 titer (<1:128); BARTONELLA HENSELAE IGM <1:20 titer (<1:20); BARTONELLA QUINTANA IGM <1:20 titer (<1:20)
--- NOTE | 2016-12-18 16:51 | PD.CARD.PN ---
Subjective Subjective Remarks No events overnight No chest pain/SOB, no subjective fever/chills Objective Medications Current Medications Medications (Trade) Dose Ordered Sig/Meet Route Start Time Stop Time Status Last Admin (NS 1000 ml Inj) 1,000 ml @ 100 mls/hr Q10H IV 12/15/16 07:45 12/18/16 14:25 (NS Flush) 2 ml UNSCH PRN IV FLUSH 12/15/16 07:45 (NS Flush) 2 ml BID IV FLUSH 12/15/16 09:00 12/15/16 20:55 (Tylenol) 650 mg Q4H PRN PO 12/15/16 07:45 (Zofran Inj) 4 mg Q6H PRN IVP 12/15/16 07:45 (Narcan Inj) 0.4 mg UNSCH PRN IV 12/15/16 07:45 (Milk Of Magnesia Liq) 30 ml Q12H PRN PO 12/15/16 07:45 (Senokot) 17.2 mg Q12H PRN PO 12/15/16 07:45 (Dulcolax Supp) 10 mg DAILY PRN RECTAL 12/15/16 07:45 (Lactulose Liq) 30 ml DAILY PRN PO 12/15/16 07:45 (Bactrim Ds 800-160 Mg) 1 tab MoWeFr@09 PO 12/16/16 09:00 12/18/16 09:02 Azithromycin 500 mg 500 mg DAILY PO 12/15/16 16:30 12/18/16 09:02 (Vancomycin Consult Pharmacy) 0 ml @ 0 mls/hr UNSCH OTHER 12/15/16 16:30 Calcium Carbonate 500 mg 500 mg Q12HR CHEW 12/16/16 21:00 12/18/16 09:01 (Vancomycin Inj/ NS 250 ml Inj) 250 ml @ 250 mls/hr Q8H IV 12/17/16 14:00 12/18/16 14:25 (Lac-Hydrin 12% Lotion) 1 applic BID TOPICAL 12/17/16 21:00 12/18/16 09:01 Miscellaneous Information SPECIFIC LAB TO BE DRAWN:VANCOMYCIN TROUGH DATE TO... ONCE ONCE .XX 12/20/16 05:45 12/20/16 05:46 Vital Signs / I&O Vital Signs Date Time Temp Pulse Resp B/P Pulse Ox O2 Delivery O2 Flow Rate FiO2 12/18/16 12:38 Room Air 12/18/16 12:28 69 12/18/16 08:00 98.4 66 18 116/60 97 12/18/16 08:00 Room Air 12/18/16 04:00 98.8 65 18 111/80 99 12/18/16 00:00 98.6 70 18 110/63 89 12/18/16 00:00 Room Air 12/17/16 20:00 98.0 67 16 116/74 100 12/17/16 20:00 Room Air 12/17/16 17:43 98 21 I/O 12/17/16 12/17/16 12/17/16 12/18/16 12/18/16 12/18/16 07:00 15:00 23:00 07:00 15:00 23:00 Intake Total 0 ml 1100 ml 713 ml 1248 ml Output Total 460 ml Balance -460 ml 1100 ml 713 ml 1248 ml Intake Oral 0 ml 480 ml IV Total 620 ml 713 ml 1248 ml Output Urine Total 460 ml # Voids 2 # Bowel Movements 0 1 Physical Exam GENERAL: NAD, AAOx3 SKIN: Warm and dry. HEAD: Atraumatic. Normocephalic. EYES: Pupils equal and round. No scleral icterus. No injection or drainage. ENT: No nasal bleeding or discharge. Mucous membranes pink and moist. NECK: Trachea midline. No JVD. CARDIOVASCULAR: Regular rate and rhythm. RESPIRATORY: No accessory muscle use. Rhonchi bilaterally GASTROINTESTINAL: Abdomen soft, non-tender, nondistended. Hepatic and splenic margins not palpable. MUSCULOSKELETAL: Extremities without clubbing, cyanosis, or edema. No obvious deformities. NEUROLOGICAL: Awake and alert. No obvious cranial nerve deficits. Motor grossly within normal limits. Five out of 5 muscle strength in the arms and legs. Normal speech. PSYCHIATRIC: Appropriate mood and affect; insight and judgment normal. Laboratory Laboratory Tests Test 12/17/16 12/18/16 20:00 05:20 Stool C. difficile Toxin (PCR) NEGATIVE Stl C. difficile Toxin PRESUMPTIVE Epiderm 027 NEGATIVE Creatinine 0.72 MG/DL Estimat Glomerular Filtration 147 ML/MIN Rate Vancomycin Level Trough 15.2 MCG/ML Assessment and Plan Problem List: (1) Sepsis associated with AIDS (2) HIV (human immunodeficiency virus infection) (3) Pneumonia (4) Diarrhea (5) Endocarditis of aortic valve Assessment and Plan 1) TTE showing possible endocarditis JEREMY showing endocarditis on the non-coronary cusp of the aortic valve (0.8cm x 0.8cm) with trace AR 2) Sepsis/PNA 3) Discussed results with ID yesterday 4) Post-JEREMY doing well, will see PRN, call with questions Vaibhav Kwon DO Dec 18, 2016 16:51
--- NOTE | 2016-12-18 16:58 | HHI.PR ---
Subjective Remarks Follow up for HIV, pneumonia, Aortic valve endocarditis. Patient is currently doing well. Denies any chest pain, shortness of breath, fever, chills. He inquires about exterminator helper abx and states he cannot stay in the hospital for weeks. However, if needed, he would come to the infusion clinic for IV abx. Objective Vitals Vital Signs Date Time Temp Pulse Resp B/P Pulse Ox O2 Delivery O2 Flow Rate FiO2 12/18/16 12:38 Room Air 12/18/16 12:28 69 12/18/16 08:00 98.4 66 18 116/60 97 12/18/16 08:00 Room Air 12/18/16 04:00 98.8 65 18 111/80 99 12/18/16 00:00 98.6 70 18 110/63 89 12/18/16 00:00 Room Air 12/17/16 20:00 98.0 67 16 116/74 100 12/17/16 20:00 Room Air 12/17/16 17:43 98 21 I/O 12/17/16 12/17/16 12/17/16 12/18/16 12/18/16 12/18/16 07:00 15:00 23:00 07:00 15:00 23:00 Intake Total 0 ml 1100 ml 713 ml 1248 ml Output Total 460 ml Balance -460 ml 1100 ml 713 ml 1248 ml Intake Oral 0 ml 480 ml IV Total 620 ml 713 ml 1248 ml Output Urine Total 460 ml # Voids 2 # Bowel Movements 0 1 Result Diagram: 12/16/16 0523 12/18/16 0520 Imaging Last Impressions Chest X-Ray 12/15/16 0528 Signed Impressions: Service Date/Time: Thursday, December 15, 2016 05:25 - CONCLUSION: Infiltrate left lower lobe retrocardiac region possible pneumonia Salinas Catalan MD Head CT 12/15/16 0000 Signed Impressions: Service Date/Time: Thursday, December 15, 2016 19:58 - CONCLUSION: Negative CT of the brain with and without contrast. Donn Bahena MD Foot X-Ray 12/15/16 0000 Signed Impressions: Service Date/Time: Thursday, December 15, 2016 17:35 - CONCLUSION: Negative exam. Donn Bahena MD Chest CT 12/15/16 0000 Signed Impressions: Service Date/Time: Thursday, December 15, 2016 19:58 - CONCLUSION: 1. Large masslike area of consolidation involving the left lung base with scattered areas of small nodular like consolidation within the right lung base. Infectious etiology most likely. Donn Randhawa Jr., MD Abdomen/Pelvis CT 12/15/16 0000 Signed Impressions: Service Date/Time: Thursday, December 15, 2016 19:58 - CONCLUSION: 1. Greater than 5 cm masslike lesion in the left lower lobe. Patchy infiltrates in the right lower lobe. 2. Moderately severe hydronephrosis on the left side, similar to a prior CT in 2014. 3. Almost complete loss of intra-abdominal and subcutaneous fat. Donn Bahena MD Objective Remarks GENERAL: AOX3, NAD. SKIN: Warm and dry. Diffuse ulcerative skin lesion present. HEAD: Normocephalic. EYES: No scleral icterus. No injection or drainage. NECK: Supple, trachea midline. No JVD or lymphadenopathy. CARDIOVASCULAR: Regular rate and rhythm without murmurs, gallops, or rubs. RESPIRATORY: Breath sounds equal bilaterally. No accessory muscle use. GASTROINTESTINAL: Abdomen soft, non-tender, nondistended. MUSCULOSKELETAL: No cyanosis, or edema. BACK: Nontender without obvious deformity. No CVA tenderness. A/P Problem List: (1) Pneumonia ICD Code: J18.9 Status: Acute (2) Diarrhea ICD Code: R19.7 Status: Acute (3) HIV (human immunodeficiency virus infection) ICD Code: B20 Status: Acute (4) Sepsis associated with AIDS ICD Code: B20 Status: Acute Assessment and Plan 41-year-old male with a past medical history of HIV/AIDS, syphillis, hepatitic B /C, and borderline DM who presented complaining of "flu-like" illness Pneumonia, suspected Sepsis: patient with HIV/AIDS, immunocompromised, may not present with SIRS criteria, with fever Tmax 103 prior to arrival, chills, night sweats. Upon arrival, CXR reviewed with left lower lobe retrocardiac infiltrate. Tmax 99.2. No leukocytosis. Chest CT shows large masslike area of consolidation involving left lung base with scattered small nodular consolidation right lung base; likely infectious etiology. -Blood cultures with NGTD, fungal blood culture pending, sputum culture with heavy growth normal respiratory mary jo -high risk for TB (homeless, prior incarceration, +pneumonia) however MTB PCR negative and sputum AFB negative -Infectious disease is following closely. -Supportive treatment with O2 and nebs as needed. -Continue antibiotics with IV Vanco, bactrim, and azithro, per ID Endocarditis: transthoracic echocardiogram shows likely endocarditis, discussed with Dr. Kwon. -JEREMY 12/[address] Kwon showed AV vegetations, consistent with endocarditis -continue antibiotics as above Gastroenteritis: Patient has been having nausea, vomiting, and diarrhea 2 days. -Check stool studies with AFB, enteric pathogens, cryptosporidium, cyclospora , fungus, WBC, Cdiff PCR -Stool studies so far shows many budding yeast with pseudohyphae. -Supportive treatment with IVF, Antiemetics as needed. -diarrhea improving, patient tolerating oral intake Acute kidney injury: Creatinine 1.31, previously 0.9 on 02/29/16. Likely secondary to dehydration from GI losses. - Resolving. Creatinine 0.72 on 12/18/2016. HIV/AIDS: Reports previously compliant however has been off medications due to social situation for the past 34 months. Last CD4 count less than 50 a few months ago, per patient. - CD4 count 154. Skin lesions: May need biopsy. - Follow-up ID recommendations. Moderate protein calorie malnutrition: BMI 16.4. Albumin 2.3. -Added boost to meals. -Consulted dietitian, recommends Ensure Enlive; add double protein to meals. Right Hallux keratoma -consult podiatry - recommended a cream and offloading, weight bearing with protective shoe gear. Full code. SCDs. Elias Montanez DO Dec 18, 2016 16:57
[2016-12-19] VITALS: BP 105/73; PULSE 66; RESP 18; TEMP 98.1; O2SAT 97
[2016-12-19] MEDS: SODIUM CHLOR 0.9% 1000 ML INJ 1,000 ML IV SCH ×2 (03:30→11:16)
[2016-12-19 04:00] VITALS: BP 114/76; PULSE 69; RESP 18; TEMP 97.6; O2SAT 100
[2016-12-19] MEDS: VANCOMYCIN 1,000 MG/NS 250 ML IV SCH ×2 (05:00)
[2016-12-19 08:00] VITALS: BP 105/63; PULSE 71; RESP 18; TEMP 98.6; O2SAT 98
[2016-12-19] MEDS: SODIUM CHLORIDE 0.9% FLUSH 10 ML FLUSH IV FLUSH SCH (09:00)
[2016-12-19] MEDS: LACTIC ACID (AMMONIUM LACTATE) 12% LOTION 225 GM BTL TOPICAL SCH (09:07)
[2016-12-19] MEDS: AZITHROMYCIN 250 MG TAB PO SCH (09:07)
[2016-12-19] MEDS: CALCIUM CARBONATE 500 MG CHEWABLE TAB CHEW SCH (09:07)
[2016-12-19 11:18] VITALS: PULSE 82
[2016-12-19 17:52] LABS: HIV 1 PROVIRAL DNA Detected (Not Detected)
[2016-12-19 23:06] LABS: ABACAVIR SUSC (()); ATAZANAVIR WITH RITONAVIR SUSC (()); DARUNAVIR WITH RITONAVIR SUSC (()); DIDANOSINE SUSC (()); EFAVIRENZ SUSC (()); EMTRICITABINE SUSC (()); ETRAVIRINE SUSC (()); FOSAMPRENAVIR WITH RITONAVIR SUSC (()); HIV-1 GENOTYPING INTERP (()); INDINAVIR WITH RITONAVIR SUSC (()); LAMIVUDINE SUSC (()); LOPINAVIR WITH RITONAVIR SUSC (()); NELFINAVIR SUSC (()); NEVIRAPINE SUSC (()); NONNUCLEOSIDE RT MUTATIONS E138A (()); NUCLEOSTIDE RT MUTATIONS T215S (()); PROTEASE MUTATIONS A71T (()); RILPIVIRINE SUSC (()); SAQUINAVIR WITH RITONAVIR SUSC (()); STAVUDINE PR (()); TENOFOVIR SUSC (()); TIPRANAVIR WITH RITONAVIR SUSC (()); ZIDOVUDINE PR (())
--- NOTE | 2016-12-19 23:44 | HHI.DS ---
Discharge Summary Admission Date Dec 16, 2016 at 10:56 Discharge Date: Dec 19, 2016 Admitting Diagnosis pneumonia (1) Pneumonia ICD Code: J18.9 Diagnosis: Principal (2) Diarrhea ICD Code: R19.7 (3) HIV (human immunodeficiency virus infection) ICD Code: B20 Diagnosis: Principal (4) Sepsis associated with AIDS ICD Code: B20 (5) Endocarditis ICD Code: I38 Procedures Transthoracic echo CONCLUSIONS The left ventricular systolic function is normal with an estimated ejection fraction in the range of 55-60%. Mild mitral valve regurgitation. Mobile structure on the right coronary cusp, consistent with vegetation . Mild aortic valve regurgitation. Questionable small mobile structure, possible vegetation. There is mild tricuspid valve regurgitation. JEREMY CONCLUSIONS The left ventricular systolic function is normal with an estimated ejection fraction in the range of 55-60%. [id number] mitral valve regurgitation with 2-3 jets noted. Findings consistent with vegetation on the non-coronary cusp of the aortic valve. Appears to be 0.8cm by 0.8cm. Trace aortic valve regurgitation. Brief History - From Admission Written by Marc Alvarado, acting as scribe for Dr. Montanez on 12/15/16 at 12:04. This note was transcribed by [email or web address] Mckeon. I, Dr. Anil Montanez personally performed the history, physical exam, and medical decision making; and confirmed the accuracy of the information in the transcribed note. Authenticated by Dr. Anil Montanez on 12/15/16 at 20:41. 41-year-old male with a past medical history of HIV and borderline DM who presented complaining of "flu-like" illness. The patient has been having generalized malaise for the past 2 days. He is an associated productive cough. He is had nausea and vomiting 2, denies any bleeding. He's noticed painful lesions on his arms and legs. He states he's felt dehydrated. Yesterday the patient began having watery diarrhea every time he ate. He states that his temperature was 103 at home prior to admission. He continues to have shaking chills. The patient does have a history of HIV. He was incarcerated recently and during his transition to [facility] he was without his HIV medications. He has now been off of his HIV medication for the past 3 or 4 months while trying to reestablish treatment with the health department. He states that prior to getting off of his medication his last CD4 count was 97. He denies any abdominal pain. CBC/BMP: 12/16/16 0523 12/18/16 0520 Significant Findings Laboratory Tests Test 12/18/16 05:20 Vancomycin Level Trough 15.2 MCG/ML (5.0-10.0) Imaging Last Impressions Chest X-Ray 12/15/16 0528 Signed Impressions: Service Date/Time: Thursday, December 15, 2016 05:25 - CONCLUSION: Infiltrate left lower lobe retrocardiac region possible pneumonia Salinas Catalan MD Head CT 12/15/16 0000 Signed Impressions: Service Date/Time: Thursday, December 15, 2016 19:58 - CONCLUSION: Negative CT of the brain with and without contrast. Donn Bahena MD Foot X-Ray 12/15/16 0000 Signed Impressions: Service Date/Time: Thursday, December 15, 2016 17:35 - CONCLUSION: Negative exam. Donn Bahena MD Chest CT 12/15/16 0000 Signed Impressions: Service Date/Time: Thursday, December 15, 2016 19:58 - CONCLUSION: 1. Large masslike area of consolidation involving the left lung base with scattered areas of small nodular like consolidation within the right lung base. Infectious etiology most likely. Donn Randhawa Jr., MD Abdomen/Pelvis CT 12/15/16 0000 Signed Impressions: Service Date/Time: Thursday, December 15, 2016 19:58 - CONCLUSION: 1. Greater than 5 cm masslike lesion in the left lower lobe. Patchy infiltrates in the right lower lobe. 2. Moderately severe hydronephrosis on the left side, similar to a prior CT in 2015. 3. Almost complete loss of intra-abdominal and subcutaneous fat. Donn Bahena MD PE at Discharge GENERAL: AOX3, NAD. SKIN: Warm and dry. Diffuse ulcerative skin lesion present. HEAD: Normocephalic. EYES: No scleral icterus. No injection or drainage. NECK: Supple, trachea midline. No JVD or lymphadenopathy. CARDIOVASCULAR: Regular rate and rhythm without murmurs, gallops, or rubs. RESPIRATORY: Breath sounds equal bilaterally. No accessory muscle use. GASTROINTESTINAL: Abdomen soft, non-tender, nondistended. MUSCULOSKELETAL: No cyanosis, or edema. BACK: Nontender without obvious deformity. No CVA tenderness. Pt update on day of discharge Patient is doing well. Denies any fever, chills. He expressed desire to go home. I told him I will discuss with ID and get back to him. However, before I could discuss with ID, patient decided to leave AMA. Hospital Course Please note that patient left hospital Against medical advice. We explained to him the gravity of his clinical situation and importance of finding out culture results and follow through ID recommendations. 41-year-old male with a past medical history of HIV/AIDS, syphillis, hepatitic B /C, and borderline DM who presented complaining of "flu-like" illness Pneumonia, suspected Sepsis: patient with HIV/AIDS, immunocompromised, may not present with SIRS criteria, with fever Tmax 103 prior to arrival, chills, night sweats. Upon arrival, CXR reviewed with left lower lobe retrocardiac infiltrate. Tmax 99.2. No leukocytosis. Chest CT shows large masslike area of consolidation involving left lung base with scattered small nodular consolidation right lung base; likely infectious etiology. -Blood cultures with NGTD, fungal blood culture pending, sputum culture with heavy growth normal respiratory mary jo -high risk for TB (homeless, prior incarceration, +pneumonia) however MTB PCR negative and sputum AFB negative -Infectious disease is following closely. -Supportive treatment with O2 and nebs as needed. -Continue antibiotics with IV Vanco, bactrim, and azithro, per ID Endocarditis: transthoracic echocardiogram shows likely endocarditis, discussed with Dr. Kwon. -JEREMY 12/[address] Kwon showed AV vegetations, consistent with endocarditis -continue antibiotics as above Gastroenteritis: Patient has been having nausea, vomiting, and diarrhea 2 days. -Check stool studies with AFB, enteric pathogens, cryptosporidium, cyclospora , fungus, WBC, Cdiff PCR -Stool studies so far shows many budding yeast with pseudohyphae. -Supportive treatment with IVF, Antiemetics as needed. -diarrhea improving, patient tolerating oral intake Acute kidney injury: Creatinine 1.31, previously 0.9 on 02/29/16. Likely secondary to dehydration from GI losses. - Resolving. Creatinine 0.72 on 12/18/2016. HIV/AIDS: Reports previously compliant however has been off medications due to social situation for the past 34 months. Last CD4 count less than 50 a few months ago, per patient. - CD4 count 154. Skin lesions: May need biopsy. - Follow-up ID recommendations. Moderate protein calorie malnutrition: BMI 16.4. Albumin 2.3. -Added boost to meals. -Consulted dietitian, recommends Ensure Enlive; add double protein to meals. Right Hallux keratoma -consult podiatry - recommended a cream and offloading, weight bearing with protective shoe gear. Full code. SCDs. Pt Condition on Discharge: Fair Discharge Disposition: Discharge Home (AMA discharge. ) Discharge Time: <= 30 minutes Discharge Instructions DIET: Follow Instructions for: As Tolerated, No Restrictions Activities you can perform: Regular-No Restrictions Elias Montanez DO Dec 19, 2016 23:44
[2016-12-20] MEDS ORDERED: PHARMACY ORDERED LAB ONE (05:45)
== END 2016-12-19 12:02 | disposition left against medical advice (07) | DRG 975 ==
LOC: NEPE 04:57 → NEDA 07:19 → NEPHCDU 09:31 → OBSVTOIN 12-16 10:56 → N04A 12-16 22:51
PROVIDERS: ADMIT Hospitalist; ATTEND Hospitalist
PROC: B24BZZZ Ultrasonography of Heart with Aorta (ICD-10-PCS; principal; 2016-12-17)
DX: B20 Human immunodeficiency virus [HIV] disease (principal); A41.9 Sepsis, unspecified organism; N17.9 Acute kidney failure, unspecified; E44.0 Moderate protein-calorie malnutrition; J18.9 Pneumonia, unspecified organism; B19.10 Unspecified viral hepatitis B without hepatic coma; Z68.1 Body mass index [BMI] 19.9 or less, adult; I35.8 Other nonrheumatic aortic valve disorders; E86.0 Dehydration; R73.03 Prediabetes; Z59.0 Homelessness; T50.996A Underdosing of other drugs, medicaments and biological substances, initial encounter; Z91.138 Patient's unintentional underdosing of medication regimen for other reason; L98.9 Disorder of the skin and subcutaneous tissue, unspecified; B19.20 Unspecified viral hepatitis C without hepatic coma; K52.9 Noninfective gastroenteritis and colitis, unspecified; L57.0 Actinic keratosis; F17.210 Nicotine dependence, cigarettes, uncomplicated; F12.90 Cannabis use, unspecified, uncomplicated; F14.90 Cocaine use, unspecified, uncomplicated
CPT/HCPCS: 70470; 71010; 71260; 73620; 74177; 80048; 80053; 80074; 80202; 81001; 82105; 82565; 82607; 83605; 83615; 85025; 86140; 86355; 86357; 86359; 86360; 86592; 86611; 87015; 87040; 87070; 87102; 87103; 87116; 87205; 87206; 87207; 87328; 87329; 87491; 87493; 87506; 87535; 87556; 87591; 87798; 87804; 87899; 87901; 93306; 93312; 93320; 93325; 96361; 96365; 96367; G0378; J2543; J3370; J7030; J7050; Q9963; Q9967

== ENCOUNTER 2016-12-26 08:53 | Inpatient (IN) | payer OTHER ==
[2016-12-26] VITALS (7 sets, daily range): BP systolic 110–119; BP diastolic 60–77; PULSE 78–98; RESP 16–20; TEMP 98.3–99; O2SAT 96–100
[~2016-12-26] VITALS: Ht 193 cm; Wt 70.7 kg
[~2016-12-26 08:53] MED LIST changes: +HIV med; -SERO50TA4 PO
[2016-12-26] MEDS ORDERED: SODIUM CHLOR 0.9% 1000 ML INJ 1,000 ML IV ONE (09:30)
--- NOTE | 2016-12-26 09:37 | PD ---
HPI Chief Complaint: GI Complaint Time Seen by Provider: 09:09 Travel History International Travel<30 days: No Contact w/Intl Traveler<30days: No Traveled to known affect area: No History of Present Illness HPI This is a 41-year-old male with HIV who presents to the emergency department with diarrhea. He says his had diarrhea for one week, copious, constant, described as green. He had 4 episodes of fecal incontinence yesterday. He also feels very weak and is having a hard time exerting himself. He was just admitted to the hospital and left AMA on December 19. At that time he was septic and was diagnosed with pneumonia as well as a vegetation on his aortic valve concerning for endocarditis. It was recommended that he stay for IV antibiotics but he left because he thought he was given be able to move in with his mother but those plans fell through. He does acknowledge that he uses cocaine and marijuana but denies any history of IV drug use. PFSH Past Medical History Arthritis: No Asthma: No Blood Disorders: No Bipolar Disorder: Yes Anxiety: Yes Depression: No Heart Rhythm Problems: No Cancer: No Cardiovascular Problems: Yes (HTN) High Cholesterol: Yes Chemotherapy: No Chest Pain: No Congestive Heart Failure: No COPD: No Cerebrovascular Accident: No Diabetes: No Diminished Hearing: No Endocrine: No Gastrointestinal Disorders: Yes (diarrhea x2days) GERD: No Genitourinary: No Hiatal Hernia: No Immune Disorder: Yes (HIV) Kidney Stones: No Musculoskeletal: No Neurologic: No Psychiatric: Yes (bipolar and schitophrenia) Reproductive: No Respiratory: No Immunizations Current: Yes Migraines: No Radiation Therapy: No Renal Failure: No Seizures: No Sleep Apnea: No Ulcer: No Tetanus Vaccination: < 5 Years Influenza Vaccination: Yes Past Surgical History Abdominal Surgery: No Cardiac Surgery: No Endocrine Surgery: No Eye Surgery: No Genitourinary Surgery: No Gynecologic Surgery: No Thoracic Surgery: No Other Surgery: Yes (right ankle) Social History Alcohol Use: Yes (OCCASIONALLY) Tobacco Use: Yes (/ PPD ) Substance Use: Yes (cocaine and massiel delores) Allergies-Medications (Allergen,Severity, Reaction): Coded Allergies: No Known Allergies (Verified , 12/26/16) Reported Meds & Prescriptions Reported Meds & Active Scripts Active No Active Prescriptions or Reported Medications Review of Systems Except as stated in HPI: all other systems reviewed are Neg Physical Exam Narrative GENERAL:Well appearing, no acute distress SKIN: Focused skin assessment warm and dry. HEAD: Atraumatic. Normocephalic. EYES: Pupils equal and round. No injection or drainage. ENT: Moist mucous membranes NECK: Trachea midline. CARDIOVASCULAR: Regular rate and rhythm. No murmur appreciated. RESPIRATORY: Clear to auscultation. Breath sounds equal bilaterally. GASTROINTESTINAL: Abdomen soft, tender to palpation in the right lower quadrant and right upper quadrant with no rebound or guarding. MUSCULOSKELETAL: No obvious deformities. NEUROLOGICAL: Awake and alert. No obvious cranial nerve deficits. Moving all extremities. PSYCHIATRIC: Appropriate mood and affect; insight and judgment normal. Data Data Last Documented VS Vital Signs Date Time Temp Pulse Resp B/P Pulse Ox O2 Delivery O2 Flow Rate FiO2 12/26/16 09:06 18 12/26/16 08:54 98.9 88 118/76 99 Room Air Orders Complete Blood Count With Diff (12/26/16 09:22) Comprehensive Metabolic Panel (12/26/16 09:22) ^ Insert Iv (12/26/16 09:22) Sodium Chlor 0.9% 1000 Ml Inj (Ns 1000 M (12/26/16 09:30) Admit Order (Ed Use Only) (12/26/16 09:45) Labs Laboratory Tests Test 12/26/16 09:45 White Blood Count 4.2 TH/MM3 Red Blood Count 3.57 MIL/MM3 Hemoglobin 10.2 GM/DL Hematocrit 31.1 % Mean Corpuscular Volume 87.0 FL Mean Corpuscular Hemoglobin 28.6 PG Mean Corpuscular Hemoglobin 32.8 % Concent Red Cell Distribution Width 13.7 % Platelet Count 312 TH/MM3 Mean Platelet Volume 7.4 FL Neutrophils (%) (Auto) 56.3 % Lymphocytes (%) (Auto) 25.0 % Monocytes (%) (Auto) 12.9 % Eosinophils (%) (Auto) 5.0 % Basophils (%) (Auto) 0.8 % Neutrophils # (Auto) 2.4 TH/MM3 Lymphocytes # (Auto) 1.1 TH/MM3 Monocytes # (Auto) 0.5 TH/MM3 Eosinophils # (Auto) 0.2 TH/MM3 Basophils # (Auto) 0.0 TH/MM3 CBC Comment DIFF FINAL Differential Comment Sodium Level 140 MEQ/L Potassium Level 3.6 MEQ/L Chloride Level 107 MEQ/L Carbon Dioxide Level 28.0 MEQ/L Anion Gap 5 MEQ/L Blood Urea Nitrogen 14 MG/DL Creatinine 0.90 MG/DL Estimat Glomerular Filtration 114 ML/MIN Rate Random Glucose 96 MG/DL Calcium Level 7.9 MG/DL Total Bilirubin 0.4 MG/DL Aspartate Amino Transf 22 U/L (AST/SGOT) Alanine Aminotransferase 13 U/L (ALT/SGPT) Alkaline Phosphatase 70 U/L Total Protein 7.7 GM/DL Albumin 2.0 GM/DL MDM Medical Decision Making Medical Screen Exam Complete: Yes Emergency Medical Condition: Yes Interpretation(s) Afebrile, no tachycardia, normotensive Anemia Electrolytes are reassuring Hypoalbuminemia Differential Diagnosis Diarrhea, C. difficile, cryptosporidium, endocarditis, sepsis, dehydration Narrative Course This is a 41-year-old male who has a history of HIV who presents to the emergency department with diarrhea and generalized weakness. Labs are obtained which are reassuring. He was just discharged from the hospital one week ago and at that time he was diagnosed with endocarditis. He left AGAINST MEDICAL ADVICE. Patient will be readmitted for further evaluation of his aortic valve vegetation. Diagnosis Primary Impression: Endocarditis of aortic valve Admitting Information Admitting Physician Requests: Admit Scripts No Active Prescriptions or Reported Meds Pari Patrick MD Dec 26, 2016 09:37
[2016-12-26 10:19] LABS: AUTOMATED NEUTROPHIL # 2.4 TH/MM3 (1.8-7.7); BASOPHIL % 0.8 % (0.0-2.0); EOSINOPHIL # 0.2 TH/MM3 (0-0.4); HEMATOCRIT 31.1 % (39.0-51.0); HEMO FLAGS DIFF FINAL; LYMPHOCYTE # 1.1 TH/MM3 (1.0-4.8); MEAN CORPUSCULAR HEMOGLOBIN 28.6 PG (27.0-34.0); MEAN CORPUSCULAR HGB CONC 32.8 % (32.0-36.0); MONO % 12.9 % (0.0-8.0); NEUT % 56.3 % (16.0-70.0); PLATELET COUNT 312 TH/MM3 (150-450); RED BLOOD COUNT 3.57 MIL/MM3 (4.50-5.90); RED CELL DISTRIBUTION WIDTH 13.7 % (11.6-17.2); WHITE BLOOD COUNT 4.2 TH/MM3 (4.0-11.0)
[2016-12-26] MEDS ORDERED: ACETAMINOPHEN 325 MG TAB PO PRN (10:30)
[2016-12-26] MEDS ORDERED: NALOXONE HCL 0.4 MG/ML AMP IV PRN (10:30)
[2016-12-26] MEDS: SODIUM CHLORIDE 0.9% FLUSH 10 ML FLUSH IV FLUSH SCH ×2 (10:30→20:55)
[2016-12-26] MEDS ORDERED: ONDANSETRON HCL 4 MG/2 ML VIAL IVP PRN (10:30)
[2016-12-26] MEDS ORDERED: SODIUM CHLORIDE 0.9% FLUSH 10 ML FLUSH IV FLUSH PRN (10:30)
[2016-12-26 10:41] LABS: ANION GAP 5 MEQ/L (5-15); AST (GOT) 22 U/L (15-37); BLOOD UREA NITROGEN 14 MG/DL (7-18); CHLORIDE 107 MEQ/L (98-107); GLOMERULAR FILTRATION RATE 114 ML/MIN (>89); POTASSIUM 3.6 MEQ/L (3.5-5.1); SODIUM (NA) 140 MEQ/L (136-145)
[2016-12-26 10:42] LABS: ALT (GPT) 13 U/L (12-78)
[2016-12-26 10:44] LABS: ALKALINE PHOSPHATASE 70 U/L (45-117); TOTAL BILIRUBIN ADULT 0.4 MG/DL (0.2-1.0)
--- NOTE | 2016-12-26 10:55 | RADRPT ---
EXAM DATE/TIME: 12/26/2016 10:52 [facility] COMPARISON: CHEST SINGLE AP, December 15, 2016, 5:25. CT THORAX W CONTRAST, December 15, 2016, 19:58. INDICATIONS : Pneumonia, vomiting MEDICAL HISTORY : None. SURGICAL HISTORY : None. ENCOUNTER: Initial ACUITY: 1 week PAIN SCORE: 0/10 LOCATION: Bilateral chest FINDINGS: Bilateral infiltrates are present, mainly right perihilar and medial left base. No evidence of effusi on. Heart size and pulmonary vascular grossly normal. Thoracic skeleton is intact. CONCLUSION: Bilateral infiltrates Bright Miner MD on December 26, 2016 at 10:52 Board Certified Radiologist. This report was verified electronically.
[2016-12-26] MEDS ORDERED: VANCOMYCIN INJ 1,000 MG in SODIUM CHLOR 0.9% 250 ML INJ 250 ML IV SCH (11:00)
[2016-12-26] MEDS ORDERED: Vancomycin Consult Pharmacy 1 EA OTHER SCH (11:00)
--- NOTE | 2016-12-26 11:06 | HHI.HP ---
HPI Service Family Medicine Primary Care Physician No Primary Care Physician Admission Diagnosis endocarditis Diagnoses: International Travel<30 Days: No Contact w/Intl Traveler<30days: No Known Affected Area: No History of Present Illness 41 yr old M w/ PMHx of HIV, chronic homelessness, bipolar, hep B/C, syphilis, HTN, and DM, presents with 1-2 week hx of worsening diarrhea and fatigue. Patient was admitted to hospital about a week ago 12/16 for pneumonia and endocarditis. He left AMA 12/19 and was unable to complete his antibiotic course (vanc, bactrim, and azithro). He was diagnosed with HIV in 2008. Patient states that he contracted HIV through sexual intercourse. He was compliant with anti- viral medications for a couple of years until he was incarcerated this year and was unable to continue them. Reports that he has been dehydrated, had poor appetite, become less energetic, and having severe diarrhea. States that he has been going to the bathroom 7-8 times a day. Stools are non-bloody, watery, greenish. Does not recall a foul odor. Reports subjective fevers, chronic dry, non-bloody coughing, b/l flank pain, and SOB w/ exertion. In addition, reports that he's had 30 lb weight loss over the past two months. Denies CP, N/V, [place], and abdominal pain. Smokes 1/2 ppd, drinks occasionally. Hx of marijuana use and cocaine use. Denies IV drug use. Review of Systems Other per HPI Past Family Social History Past Medical History HIV HTN Bipolar HepB/C, patient reports being treated in the past DM syphilis Past Surgical History Left ankle surgery for calcaneus tendon removal Allergies: Coded Allergies: No Known Allergies (Verified , 12/26/16) Family History Mom- HTN Dad at 81 of dementia Social History Reports that he has been homeless for the past 2 months. Does not appear to have a good relationship with his mother. Says he wanders the streets night and day. Smokes 1/2 ppd. Drinks liquor occasionally (reports 2 x week), Marijuana and cocaine use, denies IV drug use Physical Exam Vital Signs Vital Signs Date Time Temp Pulse Resp B/P Pulse Ox O2 Delivery O2 Flow Rate FiO2 12/26/16 09:50 86 20 114/69 96 Room Air 12/26/16 09:06 18 12/26/16 08:54 98.9 88 18 118/76 99 Room Air Physical Exam GENERAL: cachectic gentleman, lying in bed, appears very fatigue, tends to fall asleep when answering questions, in NAD SKIN: No rashes, ecchymoses or lesions. Cool and dry. EYES: Pupils equal round and reactive. no pale conjunctiva noted ENT: Nose without bleeding, purulent drainage or septal hematoma. Throat without erythema, tonsillar hypertrophy or exudate. Uvula midline. Airway patent. NECK: No JVD or lymphadenopathy. CARDIOVASCULAR: RRR, 3/6 systolic murmur in tricuspid and aortic region RESPIRATORY: Clear to auscultation. Breath sounds equal bilaterally. No wheezes , rales, or rhonchi. GASTROINTESTINAL: Abdomen soft, non-tender, nondistended. No hepato-splenomegaly , or palpable masses. No guarding. MUSCULOSKELETAL: Extremities without clubbing, cyanosis, or edema. BACK: b/l flank moderate tenderness on palpation Laboratory Laboratory Tests Test 12/26/16 09:45 White Blood Count 4.2 Red Blood Count 3.57 Hemoglobin 10.2 Hematocrit 31.1 Mean Corpuscular Volume 87.0 Mean Corpuscular Hemoglobin 28.6 Mean Corpuscular Hemoglobin 32.8 Concent Red Cell Distribution Width 13.7 Platelet Count 312 Mean Platelet Volume 7.4 Neutrophils (%) (Auto) 56.3 Lymphocytes (%) (Auto) 25.0 Monocytes (%) (Auto) 12.9 Eosinophils (%) (Auto) 5.0 Basophils (%) (Auto) 0.8 Neutrophils # (Auto) 2.4 Lymphocytes # (Auto) 1.1 Monocytes # (Auto) 0.5 Eosinophils # (Auto) 0.2 Basophils # (Auto) 0.0 CBC Comment DIFF FINAL Differential Comment Sodium Level 140 Potassium Level 3.6 Chloride Level 107 Carbon Dioxide Level 28.0 Anion Gap 5 Blood Urea Nitrogen 14 Creatinine 0.90 Estimat Glomerular Filtration 114 Rate Random Glucose 96 Calcium Level 7.9 Total Bilirubin 0.4 Aspartate Amino Transf 22 (AST/SGOT) Alanine Aminotransferase 13 (ALT/SGPT) Alkaline Phosphatase 70 Total Protein 7.7 Albumin 2.0 Result Diagram: 12/26/16 0945 12/26/16 0945 Imaging Last Impressions Chest X-Ray 12/26/16 1026 Signed Impressions: Service Date/Time: December 10:52 - CONCLUSION: Bilateral infiltrates Bright Miner MD Assessment and Plan Assessment and Plan 41 yr old AAM w/ HIV, admitted for endocarditis and pneumonia, possible septic emboli Code Status Full code Discussed Condition With Patient discussed with Dr. Hennessy. Patient seen and examined with Dr. Kavin Gupta Problem List: (1) Pneumonia Status: Acute Plan: Patient reports about 2 weeks of coughing, non-bloody. Afebrile and vitals wnl upon admission to ED. * WBC wnl 4.2 * CXR 12/15: infiltrate left lower lobe retrocardiac region possible pneumonia * Chest CT 12/15: large masslike area of consolidation involving the left lung base with scattered areas of small nodular like consolidation within the right lung base, infectious etiology most likely * CXR 12/26: bilateral infiltrates * High risk for TB (homeless, prior incarceration) however MTB PCR negative * EKG ordered * Sputum cultures (AFB, fungus) ordered * UA and urine cultures ordered * Blood cultures ordered * Urine drug screen ordered * Patient was on vanc, bactrim, azithro per ID at last hospital visit (12/16) for pneumonia * ID consulted, appreciate recs * Will start patient on Vancomycin 1000 MG IV q8h, Azithromycin 500mg PO daily, Zosyn 4.5 Gm IV q6h (2) Diarrhea Status: Acute Plan: Patient reports 1-2 weeks hx of worsening non-bloody diarrhea. * C. diff PCR ordered * Stool Cultures (cryptosporidium, cyclospora, enteric path, giardia, AFB, fungus, WBC) ordered * Patient started on antibiotics as above * stool studies 12/17 showed many budding yeast with pseudohyphae- evelin albicans * Supportive treatment with 110mls/hr NS (3) Endocarditis Status: Acute Plan: 3/6 systolic murmur in tricuspid and aortic area heard on exam. * JEREMY 12/17 vegetation on the non-coronary cusp of the aortic valve, mild to moderate mitral valve regurgitation with 2-3 jets noted * TTE: 12/17 left ventricular systolic function is normal ejection fraction, mild mitral valve regurgitation, mobile structure on the right coronary cusp, consistent with vegetation, mild aortic valve regurgitation * Start antibiotics as above (4) HIV (human immunodeficiency virus infection) Status: Acute Plan: Patient reports previously being compliant with anti-virals. Has been unable to continue them for the past 3-4 months. * Absolute CD4 count 12/16/16- 154 (5) DM (diabetes mellitus) Status: Acute Plan: Patient reports history of diabetes. Reports being prescribed metformin, but never took it. * HbA1c 11/29/15 - 6.2% * repeat HbA1c ordered * Low novolog sliding scale (6) Nutrition, metabolism, and development symptoms Status: Acute Plan: Fluids: 110 mls/hr NS Electrolytes: monitor and replete as necessary Diet: Diabetic diet Nursing orders: vitals q4h, I & Os, glucose checks Physician Certification 2 Midnight Certification Type: Admission for Inpatient Services Order for Inpatient Services The services are ordered in accordance with Medicare regulations or non- Medicare payer requirements, as applicable. In the case of services not specified as inpatient-only, they are appropriately provided as inpatient services in accordance with the 2-midnight benchmark. Estimated LOS (days): 2 2 days is the estimated time the patient will need to remain in the hospital, assuming treatment plan goals are met and no additional complications. Post-Hospital Plan: [place] Jaent Morales MD R1 Dec 26, 2016 11:05
[2016-12-26] MEDS: SODIUM CHLOR 0.9% 1000 ML INJ 1,000 ML IV SCH ×2 (11:21→20:06)
[2016-12-26] MEDS: ENOXAPARIN SODIUM 40 MG/0.4 ML SYRINGE SQ SCH (11:23)
[2016-12-26 11:26] LABS: BACTERIA, URINE RARE /hpf; BLOOD, URINE NEG (NEG); COMMENT (UR) CULT NOT INDICATED; CULTURE IF INDICATED CULT NOT INDICATED; GLUCOSE,URINE NEG (NEG); HYALINE CAST, URINE 3 /lpf (RARE); KETONE, URINE NEG (NEG); MUCUS URINE FEW /lpf (OCC); NITRITE,URINE NEG (NEG); PH, URINE 5.5 (5.0-8.5); SQUAMOUS EPITHELIAL CELL URINE <1 /hpf (0-5); URINE COLOR YELLOW (YELLW/STRAW)
[2016-12-26] MEDS: AZITHROMYCIN 250 MG TAB PO SCH (11:53)
[2016-12-26] MEDS: PIPERACIL-TAZO 4.5 GM PREMIX 100 ML IV SCH ×3 (11:53→23:33)
[2016-12-26 13:00] LABS: BARBITURATES, URINE NEG (NEG)
[2016-12-26 13:02] LABS: AMPHETAMINE, URINE NEG (NEG); COCAINE, URINE POS (NEG)
[2016-12-26] MEDS: VANCOMYCIN 1,000 MG/NS 250 ML IV SCH ×4 (13:07→20:55)
--- NOTE | 2016-12-26 15:07 | HHI.FPPN ---
Subjective Remarks Medicine attending note: Patient seen and examined, 41-year-old gentleman with history of HIV not currently on antiviral drugs presented to the emergency room for what he said was "I can't go on ". Referencing severe fatigue and frequent diarrhea. Notable the patient was recently hospitalized at [facility] with a clinical diagnosis of endocarditis and vegetation on the aortic valve. He ultimately refused treatment, signed out AMA with plans to move to [place]. This did not work out and is been on the street since. He describes himself as "home". Patient is limited in his history giving, he states that he has so much diarrhea that he can't Number of movements. Doesn't describe any blood. Has had a cough minimally productive, no hemoptysis. Has an established diagnosis of HIV, has not been taking medications because he stated that he had difficulty with the health department and completing all of the paperwork. Please refer to resident history and physical for complete discussion of the present illness, past medical history, social history and family history. Objective Vitals Vital signs noted. Afebrile. Gen. appearance: Extremely cachectic, after initially engaging the patient in conversation he was more conversational and expressed no somatic complaints other than frequent diarrhea and fatigue HEENT: Oropharynx no localized lesions,no ulcerations Neck: No adenopathy Lungs: diminished breath sounds, occasional scattered rhonchi, breath sounds at the bases bilaterally with rales Cardiac: Increased heart rate, no S3, no specific murmurs appreciated over the aortic area. Abdomen: Evidence of weight loss, no tenderness elicited, no masses evident, no organomegaly. Extremities: Evidence of severe weight loss, muscle atrophy. Skin: Upper and lower as well as torso has raised areas which appears excoriated , nonspecific. No evidence of active drainage Please refer to the resident's physical for complete discussion of physical exam.. Vital Signs Date Time Temp Pulse Resp B/P Pulse Ox O2 Delivery O2 Flow Rate FiO2 12/26/16 11:33 98.3 98 18 119/77 97 Room Air 12/26/16 11:00 98 21 12/26/16 09:50 86 20 114/69 96 Room Air 12/26/16 09:06 18 12/26/16 08:54 98.9 88 18 118/76 99 Room Air Result Diagram: 12/26/1645 12/26/1645 A/P Assessment and Plan Clinical assessment: 41-year-old Afro-[place] gentleman with established diagnosis of HIV not on medications presents with severe cachexia, weight loss, diarrhea, fatigue. Patient examined, patient discussed with the resident team, discussed assessment and plan and physician agrees with the assessment and plan as outlined in the resident notes and orders. Bruce Hennessy MD Dec 26, 2016 15:07
[2016-12-26] MEDS ORDERED: GLUCAGON 1 MG/ML VIAL OTHER PRN (17:30)
[2016-12-26] MEDS ORDERED: DEXTROSE 50% IN WATER 50 ML VIAL(D50) IV PUSH PRN (17:30)
--- NOTE | 2016-12-26 20:00 | HHI.PR ---
Addendum to Inpatient Note Additional Information Pt seen and examined jared 1930 chart reviewd Full note to follow Teodora Smith MD Dec 26, 2016 20:00
[2016-12-26] MEDS: INSULIN ASPART SUPPLEMENTAL SCALE SQ SCH (20:55)
--- NOTE | 2016-12-26 23:35 | PD.ID.CON ---
History of Present Illness Service ID Consult Requested By Dr Morales Reason for Consult HIV endocarditis PNA Primary Care Physician No Primary Care Physician Diagnoses: History of Present Illness 41 yo male HIV +/ off HAART x 5 + mos 2/2 social reasons, previously pt of Dr Bains Pt presents with 1-2 week hx of worsening diarrhea and fatigue. He was admitted to hospital about a week ago 12/16 for pneumonia and endocarditis but he left AMA 12/19 and didn not complete his antibiotic course (vanc, bactrim, and azithro ). He was diagnosed with HIV in 2008. He was compliant with antiretrovirals until he was incarcerated this year and was unable to continue them. Pt reports \ poor appetite, fatigue 30 lb weight loss and severe diarrhea ( 7- 8 BMs/a day with non-bloody, watery, greenish stool). Endorses fevers, chronic dry, sometimes productive cough, no hemptysis and SOB w/ exertion. 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) Routine bacterial clx neg; Bartonella serologies negative as well He has negative MTB PCR as of 12/16 His last CD4 count 2 weeks ago was 154 He grew out some mold yet to be ID'd in the sputum Review of Systems Constitutional: COMPLAINS OF: Fever, Weight loss (28 lbs), Chills, Night Sweats Respiratory: COMPLAINS OF: Cough, Sputum production, Shortness of breath Gastrointestinal: COMPLAINS OF: Diarrhea Integumentary: COMPLAINS OF: Pruritus, Rash Except as stated in HPI: all other systems reviewed are Neg Past Family Social History Allergies: Coded Allergies: No Known Allergies (Verified , 12/26/16) Past Medical History HIV disease, non comliance LTBI sp INH tx in 2001 HTN Bipolar HepB/C, patient reports being treated in the past DM syphilis Past Surgical History Left ankle surgery for calcaneus tendon removal Active Ordered Medications Medications where reviewed in EMR Antibiotics Include: vancomycin zosyn Family History reviewed; non contributory Social History homeless for the past 2 months. . Says he wanders the streets night and day. Smokes 1/2 ppd. Drinks liquor occasionally (reports 2 x week), Marijuana and cocaine use, denies IV drug use (states he never used IVDA) Physical Exam Vital Signs Vital Signs Date Time Temp Pulse Resp B/P Pulse Ox O2 Delivery O2 Flow Rate FiO2 12/26/16 16:00 98.9 84 20 118/72 100 12/26/16 15:17 78 20 116/75 97 Room Air 12/26/16 11:33 98.3 98 18 119/77 97 Room Air 12/26/16 11:00 98 21 12/26/16 09:50 86 20 114/69 96 Room Air 12/26/16 09:06 18 12/26/16 08:54 98.9 88 18 118/76 99 Room Air Physical Exam CONSTITUTIONAL/GENERAL: This is undernourished thin patient, in no apparent distress. TUBES/LINES/DRAINS: SKIN: No jaundice, rashes, scattered papular lesions B/L forearms suspicious for eosinophilic foliculitis. No wounds seen anteriorly. Skin temperature appropriate. Not diaphoretic. HEAD: Atraumatic. Normocephalic. EYES: Pupils equal and round and reactive. Extraocular motions intact. No scleral icterus. No injection or drainage. Fundi not examined. ENT: Hearing grossly normal. Nose without bleeding or purulent drainage. Oral mucosae without visible erythema, exudates, masses, or lesions. NECK: Trachea midline. Supple, nontender. CARDIOVASCULAR: Regular rate and rhythm without murmurs, gallops, or rubs. No JVD. Peripheral pulses symmetric. RESPIRATORY/CHEST: Symmetric, unlabored respirations. Clear to auscultation. Breath sounds equal bilaterally. No wheezes, rales, or rhonchi. GASTROINTESTINAL: Abdomen soft, non-tender, nondistended. No hepato-splenomegaly , or palpable masses. No guarding. Bowel sounds present. GENITOURINARY: Without palpable bladder distension. MUSCULOSKELETAL: Extremities without clubbing, cyanosis, or edema. No joint tenderness or effusion noted. No calf tenderness. No mottling or clubbing. LYMPHATICS: No palpable cervical or supraclavicular adenopathy. NEUROLOGICAL: Awake and alert. Motor and sensory grossly within normal limits. Follows commands. Clear speech. Moves all extremities. PSYCHIATRIC: No obvious anxiety/depression. no apparent hallucinations or other psychotic thought process. Laboratory Laboratory Tests Test 12/26/16 12/26/16 09:05 09:45 Urine Color YELLOW Urine Turbidity CLEAR Urine pH 5.5 Urine Specific [place] 1.021 Urine Protein 30 Urine Glucose (UA) NEG Urine Ketones NEG Urine Occult Blood NEG Urine Nitrite NEG Urine Bilirubin NEG Urine Urobilinogen LESS THAN 2.0 Urine Leukocyte Esterase NEG Urine RBC 1 Urine WBC 1 Urine Squamous Epithelial <1 Cells Urine Bacteria RARE Urine Hyaline Casts 3 Urine Mucus FEW Microscopic Urinalysis Comment CULT NOT INDICATED Urine Opiates Screen NEG Urine Barbiturates Screen NEG Urine Amphetamines Screen NEG Urine Benzodiazepines Screen NEG Urine Cocaine Screen POS Urine Cannabinoids Screen NEG White Blood Count 4.2 Red Blood Count 3.57 Hemoglobin 10.2 Hematocrit 31.1 Mean Corpuscular Volume 87.0 Mean Corpuscular Hemoglobin 28.6 Mean Corpuscular Hemoglobin 32.8 Concent Red Cell Distribution Width 13.7 Platelet Count 312 Mean Platelet Volume 7.4 Neutrophils (%) (Auto) 56.3 Lymphocytes (%) (Auto) 25.0 Monocytes (%) (Auto) 12.9 Eosinophils (%) (Auto) 5.0 Basophils (%) (Auto) 0.8 Neutrophils # (Auto) 2.4 Lymphocytes # (Auto) 1.1 Monocytes # (Auto) 0.5 Eosinophils # (Auto) 0.2 Basophils # (Auto) 0.0 CBC Comment DIFF FINAL Differential Comment Sodium Level 140 Potassium Level 3.6 Chloride Level 107 Carbon Dioxide Level 28.0 Anion Gap 5 Blood Urea Nitrogen 14 Creatinine 0.90 Estimat Glomerular Filtration 114 Rate Random Glucose 96 Calcium Level 7.9 Total Bilirubin 0.4 Aspartate Amino Transf 22 (AST/SGOT) Alanine Aminotransferase 13 (ALT/SGPT) Alkaline Phosphatase 70 Total Protein 7.7 Albumin 2.0 Date/Time Procedure Status Source Growth 12/26/16 11:10 Aerobic Blood Culture Received Blood Peripheral Pending 12/26/16 11:10 Anaerobic Blood Culture Received Blood Peripheral Pending Result Diagram: 12/26/16 0945 12/26/16 0945 Imaging Last Impressions Chest X-Ray 12/26/16 1026 Signed Impressions: Service Date/Time: December 10:52 - CONCLUSION: Bilateral infiltrates Bright Miner MD Assessment and Plan Assessment and Plan HIV, AIDS, non comlicance 2/2 social reason Culture negative endocarditis PNA Mold in the sputum ? significance Cocain abuse Diarrhea , C.diff/giardia/ pathogens/cryptospora/cyclospora negative - cont current abx - repeat sputum clx. including fungal dc TB isolation - further rec's to [facility] - case mngr consult to restore [facility] f/u and Teodora Smith MD Dec 26, 2016 23:35
[2016-12-27] VITALS (10 sets, daily range): BP systolic 108–122; BP diastolic 57–70; PULSE 74–93; RESP 16–22; TEMP 98.7–100.1; O2SAT 95–100
[2016-12-27] MEDS: VANCOMYCIN 1,000 MG/NS 250 ML IV SCH ×4 (04:46→14:30)
[2016-12-27] MEDS: PIPERACIL-TAZO 4.5 GM PREMIX 100 ML IV SCH ×3 (04:47→18:00)
[2016-12-27] MEDS: SODIUM CHLOR 0.9% 1000 ML INJ 1,000 ML IV SCH ×3 (04:47→22:25)
[2016-12-27] MEDS: INSULIN ASPART SUPPLEMENTAL SCALE SQ SCH (06:22)
[2016-12-27] MEDS: SODIUM CHLORIDE 0.9% FLUSH 10 ML FLUSH IV FLUSH SCH ×2 (09:00→20:56)
[2016-12-27] MEDS: AZITHROMYCIN 250 MG TAB PO SCH (09:00)
[2016-12-27 09:49] LABS: AUTOMATED NEUTROPHIL # 2.1 TH/MM3 (1.8-7.7); BASOPHIL % 1.3 % (0.0-2.0); EOSINOPHIL # 0.2 TH/MM3 (0-0.4); EOSINOPHIL % 5.2 % (0.0-4.0); HEMATOCRIT 32.2 % (39.0-51.0); HEMO FLAGS DIFF FINAL; LYMPH % 21.3 % (9.0-44.0); LYMPHOCYTE # 0.7 TH/MM3 (1.0-4.8); MEAN CELL VOLUME 88.1 FL (80.0-100.0); MEAN CORPUSCULAR HEMOGLOBIN 28.3 PG (27.0-34.0); MEAN CORPUSCULAR HGB CONC 32.1 % (32.0-36.0); MONO % 7.2 % (0.0-8.0); PLATELET COUNT 291 TH/MM3 (150-450); RED BLOOD COUNT 3.65 MIL/MM3 (4.50-5.90); RED CELL DISTRIBUTION WIDTH 13.8 % (11.6-17.2); WHITE BLOOD COUNT 3.2 TH/MM3 (4.0-11.0)
[2016-12-27 10:26] LABS: CALCIUM-PROTEIN CORRECTED 7.6 MG/DL (8.5-10.1); POTASSIUM 3.9 MEQ/L (3.5-5.1); TOTAL BILIRUBIN ADULT 0.5 MG/DL (0.2-1.0)
--- NOTE | 2016-12-27 10:51 | HHI.FPPN ---
Subjective Remarks No acute events overnight. Pt lying in bed. Reports that he hasn't had diarrhea since admission. Appetite has improved. Low grade fever, 100.1 . Vitals wnl. Denies CP, SOB, abdominal pain, and N/V. Objective Vitals Vital Signs Date Time Temp Pulse Resp B/P Pulse Ox O2 Delivery O2 Flow Rate FiO2 12/27/16 08:00 100.1 83 22 114/65 99 12/27/16 00:00 99.6 93 16 118/57 97 12/26/16 20:00 99.0 90 16 110/60 98 12/26/16 16:00 98.9 84 20 118/72 100 12/26/16 15:17 78 20 116/75 97 Room Air 12/26/16 11:33 98.3 98 18 119/77 97 Room Air 12/26/16 11:00 98 21 I/O 12/26/16 12/26/16 12/26/16 12/27/16 12/27/16 12/27/16 07:00 15:00 23:00 07:00 15:00 23:00 Intake Total 1190 ml 790 ml Output Total 595 ml 250 ml Balance 595 ml 540 ml Intake Oral 1190 ml 240 ml IV Total 550 ml Output Urine Total 595 ml 250 ml # Voids 1 # Bowel Movements 0 0 Result Diagram: 12/27/16 0823 12/27/16 0803 Imaging Last Impressions Chest X-Ray 12/26/16 1026 Signed Impressions: Service Date/Time: December 10:52 - CONCLUSION: Bilateral infiltrates Bright Miner MD Objective Remarks GENERAL: cachectic gentleman, lying in bed, in NAD SKIN: excoriations on b/l arms and legs EYES: Pupils equal round and reactive. no pale conjunctiva noted ENT: Nose without bleeding, purulent drainage or septal hematoma. Throat without erythema, tonsillar hypertrophy or exudate. Uvula midline. Airway patent. NECK: No JVD or lymphadenopathy. CARDIOVASCULAR: RRR, no appreciable murmur RESPIRATORY: Clear to auscultation. Breath sounds equal bilaterally. No wheezes , rales, or rhonchi. GASTROINTESTINAL: Abdomen soft, non-tender, nondistended. No hepato-splenomegaly , or palpable masses. No guarding. MUSCULOSKELETAL: Extremities without clubbing, cyanosis, or edema. BACK: b/l flank moderate tenderness on palpation A/P Assessment and Plan 41 yr old AAM w/ HIV, admitted for endocarditis and pneumonia, possible septic emboli Discharge Planning Patient is uninsured, will work with case management for blue card Per ID, patient might be a candidate for [facility] due to compliance issues Follow-up with [facility] for anti-viral medications Problem List: (1) Pneumonia Status: Acute Plan: Patient reports about 2 weeks of coughing, non-bloody. Afebrile and vitals wnl upon admission to ED. * WBC wnl 4.2 * CXR 12/15: infiltrate left lower lobe retrocardiac region possible pneumonia * Chest CT 12/15: large masslike area of consolidation involving the left lung base with scattered areas of small nodular like consolidation within the right lung base, infectious etiology most likely * CXR 12/26: bilateral infiltrates * High risk for TB (homeless, prior incarceration) however MTB PCR negative * EKG wnl * Sputum cultures (AFB, fungus) pending * UA negative * Urine culture pending * Blood cultures no growth in 1 day * Urine drug screen - positive for cocaine * Patient was on vanc, bactrim, azithro per ID at last hospital visit (12/16) for pneumonia * ID consulted, appreciate recs * Continue patient on abx below * Vancomycin 1000 MG IV q8h, Azithromycin 500mg PO daily, Zosyn 4.5 Gm IV q6h (2) Diarrhea Status: Acute Plan: Patient reports 1-2 weeks hx of worsening non-bloody diarrhea. * C. diff PCR positive * Stool Cultures (cryptosporidium, cyclospora, enteric path, giardia, AFB, fungus, WBC) pending * Patient started on antibiotics as above * stool studies 12/17 showed many budding yeast with pseudohyphae- evelin albicans * Supportive treatment with 110mls/hr NS (3) Endocarditis Status: Acute Plan: 3/6 systolic murmur in tricuspid and aortic area heard on exam upon admission. * JEREMY 12/17 vegetation on the non-coronary cusp of the aortic valve, mild to moderate mitral valve regurgitation with 2-3 jets noted * TTE: 12/17 left ventricular systolic function is normal ejection fraction, mild mitral valve regurgitation, mobile structure on the right coronary cusp, consistent with vegetation, mild aortic valve regurgitation * Start antibiotics as above (4) HIV (human immunodeficiency virus infection) Status: Acute Plan: Patient reports previously being compliant with anti-virals. Has been unable to continue them for the past 3-4 months. * Absolute CD4 count 12/16/16- 154 (5) Nutrition, metabolism, and development symptoms Status: Acute Plan: Fluids: 110 mls/hr NS Electrolytes: monitor and replete as necessary Diet: Diabetic diet Nursing orders: vitals q4h, I & Os, glucose checks Janet Morales MD R1 Dec 27, 2016 10:51 Electrolytes: monitor and replete as necessary Diet: Diabetic diet Nursing orders: vitals q4h, I & Os, glucose checks Janet Morales MD R1 Dec 27, 2016 10:51
--- NOTE | 2016-12-27 11:37 | HHI.IDPN ---
Subjective Subjective Remarks 41 yo male HIV +/ off HAART x 5 + mos 2/2 social reasons, previously pt of Dr Bains Pt presents with 1-2 week hx of worsening diarrhea and fatigue. He was admitted to hospital about a week ago 12/16 for pneumonia and endocarditis but he left AMA 12/19 and didn not complete his antibiotic course (vanc, bactrim, and azithro ). He was diagnosed with HIV in 2008. He was compliant with antiretrovirals until he was incarcerated this year and was unable to continue them. Pt reports \ poor appetite, fatigue 30 lb weight loss and severe diarrhea ( 7- 8 BMs/a day with non-bloody, watery, greenish stool). Endorses fevers, chronic dry, sometimes productive cough, no hemptysis and SOB w/ exertion. 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 No Cryptococcus. Overnight events reviewed Low grade temp 100 F No rash Complains of diarrhea on admission but volume better now. Says he cannot stay in hospital for too long and hence signed out AMA. Psych eval last admission pt competent to make decisions. Antibiotics Zosyn IV Vanco IV Lines Line sites with no e.o infection. Past Medical History Past Medical History HIV disease, non comliance LTBI sp INH tx in 2001 HTN Bipolar HepB/C, patient reports being treated in the past DM syphilis Past Surgical History Left ankle surgery for calcaneus tendon removal Active Ordered Medications Medications where reviewed in EMR Antibiotics Include: vancomycin zosyn Family History reviewed; non contributory Social History homeless for the past 2 months. . Says he wanders the streets night and day. Smokes 1/2 ppd. Drinks liquor occasionally (reports 2 x week), Marijuana and cocaine use, denies IV drug use (states he never used IVDA) Allergies: Coded Allergies: No Known Allergies (Verified , 12/26/16) Objective . Vital Signs Date Time Temp Pulse Resp B/P Pulse Ox O2 Delivery O2 Flow Rate FiO2 12/27/16 09:00 83 12/27/16 08:00 100.1 83 22 114/65 99 12/27/16 00:00 99.6 93 16 118/57 97 12/26/16 20:00 99.0 90 16 110/60 98 12/26/16 16:00 98.9 84 20 118/72 100 12/26/16 15:17 78 20 116/75 97 Room Air 12/26/16 12/26/16 12/27/16 15:00 23:00 07:00 Intake Total 1190 ml 790 ml Output Total 595 ml 250 ml Balance 595 ml 540 ml Intake Oral 1190 ml 240 ml IV Total 550 ml Output Urine Total 595 ml 250 ml # Voids 1 # Bowel Movements 0 0 . Laboratory Tests Test 12/26/16 12/27/16 09:45 08:23 White Blood Count 4.2 TH/MM3 3.2 TH/MM3 Red Blood Count 3.57 MIL/MM3 3.65 MIL/MM3 Hemoglobin 10.2 GM/DL 10.3 GM/DL Hematocrit 31.1 % 32.2 % Mean Corpuscular Volume 87.0 FL 88.1 FL Mean Corpuscular Hemoglobin 28.6 PG 28.3 PG Mean Corpuscular Hemoglobin 32.8 % 32.1 % Concent Red Cell Distribution Width 13.7 % 13.8 % Platelet Count 312 TH/MM3 291 TH/MM3 Mean Platelet Volume 7.4 FL 7.4 FL Neutrophils (%) (Auto) 56.3 % 65.0 % Lymphocytes (%) (Auto) 25.0 % 21.3 % Monocytes (%) (Auto) 12.9 % 7.2 % Eosinophils (%) (Auto) 5.0 % 5.2 % Basophils (%) (Auto) 0.8 % 1.3 % Neutrophils # (Auto) 2.4 TH/MM3 2.1 TH/MM3 Lymphocytes # (Auto) 1.1 TH/MM3 0.7 TH/MM3 Monocytes # (Auto) 0.5 TH/MM3 0.2 TH/MM3 Eosinophils # (Auto) 0.2 TH/MM3 0.2 TH/MM3 Basophils # (Auto) 0.0 TH/MM3 0.0 TH/MM3 CBC Comment DIFF FINAL DIFF FINAL Differential Comment Laboratory Tests Test 12/26/16 12/27/16 09:45 08:03 Sodium Level 140 MEQ/L 136 MEQ/L Potassium Level 3.6 MEQ/L 3.9 MEQ/L Chloride Level 107 MEQ/L 106 MEQ/L Carbon Dioxide Level 28.0 MEQ/L 26.0 MEQ/L Anion Gap 5 MEQ/L 4 MEQ/L Blood Urea Nitrogen 14 MG/DL 9 MG/DL Creatinine 0.90 MG/DL 0.95 MG/DL Estimat Glomerular Filtration 114 ML/MIN 107 ML/MIN Rate Random Glucose 96 MG/DL 69 MG/DL Calcium Level 7.9 MG/DL 7.4 MG/DL Total Bilirubin 0.4 MG/DL 0.5 MG/DL Aspartate Amino Transf 22 U/L 20 U/L (AST/SGOT) Alanine Aminotransferase 13 U/L 10 U/L (ALT/SGPT) Alkaline Phosphatase 70 U/L 57 U/L Total Protein 7.7 GM/DL 6.8 GM/DL Albumin 2.0 GM/DL 1.8 GM/DL Protein Corrected Calcium 7.6 MG/DL Microbiology Date/Time Procedure Status Source Growth 12/26/16 11:10 Aerobic Blood Culture - Preliminary Resulted Blood Peripheral NO GROWTH IN 1 DAY 12/26/16 11:10 Anaerobic Blood Culture - Preliminary Resulted Blood Peripheral NO GROWTH IN 1 DAY 12/26/16 11:10 Aerobic Blood Culture - Preliminary Resulted Blood Peripheral NO GROWTH IN 1 DAY 12/26/16 11:10 Anaerobic Blood Culture - Preliminary Resulted Blood Peripheral NO GROWTH IN 1 DAY 12/27/16 10:50 Received Stool Stool Pending 12/27/16 10:50 Acid Fast Stain Received Stool Stool Pending 12/27/16 10:50 Mycobacterial Culture Received Stool Stool Pending 12/27/16 10:50 Fungal Smear Received Stool Stool Pending 12/27/16 10:50 Fungal Culture Received Stool Stool Pending 12/27/16 10:50 Cyclospora Exam Received Stool Stool Pending 12/27/16 10:50 Cryptosporidium Exam Received Stool Stool Pending 12/27/16 10:50 Stool Pus (MICHAEL) Received Stool Stool Pending 12/27/16 10:50 Giardia Antigen (MICHAEL) Received Stool Stool Pending Imaging Last Impressions Chest X-Ray 12/26/16 1026 Signed Impressions: Service Date/Time: December 10:52 - CONCLUSION: Bilateral infiltrates Bright Miner MD Physical Exam CONSTITUTIONAL/GENERAL: This is undernourished thin patient, in no apparent distress. TUBES/LINES/DRAINS: SKIN: No jaundice, rashes, scattered papular lesions B/L forearms suspicious for eosinophilic foliculitis. No wounds seen anteriorly. Skin temperature appropriate. Not diaphoretic. HEAD: Atraumatic. Normocephalic. EYES: Pupils equal and round and reactive. Extraocular motions intact. No scleral icterus. No injection or drainage. Fundi not examined. ENT: Hearing grossly normal. Nose without bleeding or purulent drainage. Oral mucosae without visible erythema, exudates, masses, or lesions. NECK: Trachea midline. Supple, nontender. CARDIOVASCULAR: Regular rate and rhythm without murmurs, gallops, or rubs. No JVD. Peripheral pulses symmetric. RESPIRATORY/CHEST: Symmetric, unlabored respirations. Clear to auscultation. Breath sounds equal bilaterally. No wheezes, rales, or rhonchi. GASTROINTESTINAL: Abdomen soft, non-tender, nondistended. GENITOURINARY: Without palpable bladder distension. MUSCULOSKELETAL: Extremities without clubbing, cyanosis, or edema. No joint tenderness or effusion noted. No calf tenderness. No mottling or clubbing. LYMPHATICS: No palpable cervical or supraclavicular adenopathy. NEUROLOGICAL: Awake and alert. Motor and sensory grossly within normal limits. Follows commands. Clear speech. Moves all extremities. PSYCHIATRIC: No obvious anxiety/depression. no apparent hallucinations or other psychotic thought process. Assessment & Plan Remarks HIV, AIDS, non compliance 2/2 social reason Culture negative endocarditis PNA Mold in the sputum ? significance Cocain abuse Diarrhea , C.diff/giardia/ pathogens/cryptospora/cyclospora negative Recs Continue Zosyn IV Continue Vanco IV Follow cultures Follow clinically. Follow Cdiff PCR if negative ok to DC isolation. D.w pt and Mom in room: compliance with antibiotics is essential. Interruption of antibiotics can lead to resistance and worsening of infection. Patient says he cannot promise to stay in hospital to complete therapy. I tried many times in past admission and again today to explain importance of not interrupting antibiotics. Patient is homeless I made him understand that staying in hospital will help complete course but he was adamant and kept repeating that he will likely sign out AMA again if he cant stand the hospital. He promises to be compliant with [facility]. I made him understand that this is a last resort option due to his compliance issue and I would have to get approval for proceeding with this plan. He promised me that if he is offered this option he will show up in clinics and abstain from drugs. Patient choses [facility] option over staying in hospital. I explained to him that this is culture negative endocarditis and if any fungal or other cultures came back positive he will likely need readmission and reassessment of plan. He understands and still prefers to be discharged with [facility] at this point. Patient will need resolution or control of fevers, cdiff negative and other medical issues resolved and clinically stable before discharge on [facility] plan (if approved) Leonel Improvement Manager. Time in excess of 40 mins. Critical thinking and decision making. Dr. Eliseo Smith will cover for me this weekend. Please call her sooner if any acute change or abnormal test results. Cari Burch MD Dec 27, 2016 11:37
[2016-12-27] MEDS: ENOXAPARIN SODIUM 40 MG/0.4 ML SYRINGE SQ SCH (12:00)
[2016-12-27 12:33] LABS: C. DIFF EPI 027 PRESUMPTIVE NEGATIVE (NEGATIVE)
[2016-12-27] MEDS ORDERED: PHARMACY ORDERED LAB ONE (12:45)
[2016-12-27 12:56] LABS: C. DIFF TOXIN PCR POSITIVE (NEGATIVE)
--- NOTE | 2016-12-27 17:12 | EKG ---
Date Performed: 12/26/2016 Time Performed: 11:23:32 PTAGE: 41 years EKG: Sinus rhythm POSSIBLE LEFT ATRIAL ENLARGEMENT NONSPECIFIC ST & T-WAVE ABNORMALITY BORDERLINE ECG NO PREVIOUS TRACING DOCTOR: Brendan Carlson Interpretating Date/Time 12/27/2016 17:11:40
[2016-12-27 17:20] LABS: HEMOGLOBIN A1a 1.4 %; HEMOGLOBIN A1b 0.9 %; HEMOGLOBIN Ao 83.4 %; HEMOGLOBIN F 1.2 %; HEMOGLOBIN LA1C 1.9 %; HEMOGLOBIN P3 3.9 %
[2016-12-27] MEDS: VANCOMYCIN INJ 1,250 MG in SODIUM CHLOR 0.9% 250 ML INJ 250 ML IV SCH (22:00)
[2016-12-28] VITALS: BP 122/69; PULSE 87; RESP 20; TEMP 98.2; O2SAT 99
[2016-12-28 04:00] VITALS: BP 128/76; PULSE 77; RESP 20; TEMP 98.9; O2SAT 95
[2016-12-28] MEDS: PIPERACIL-TAZO 4.5 GM PREMIX 100 ML IV SCH ×2 (07:00)
[2016-12-28] MEDS: VANCOMYCIN INJ 1,250 MG in SODIUM CHLOR 0.9% 250 ML INJ 250 ML IV SCH (07:00)
[2016-12-28 07:06] LABS: AUTOMATED NEUTROPHIL # 1.7 TH/MM3 (1.8-7.7); BASOPHIL % 1.1 % (0.0-2.0); EOSINOPHIL # 0.3 TH/MM3 (0-0.4); EOSINOPHIL % 8.5 % (0.0-4.0); HEMATOCRIT 30.8 % (39.0-51.0); HEMO FLAGS DIFF FINAL; LYMPH % 30.1 % (9.0-44.0); MEAN CELL VOLUME 86.8 FL (80.0-100.0); MEAN CORPUSCULAR HEMOGLOBIN 28.6 PG (27.0-34.0); MONO % 8.3 % (0.0-8.0); PLATELET COUNT 271 TH/MM3 (150-450); RED BLOOD COUNT 3.54 MIL/MM3 (4.50-5.90); RED CELL DISTRIBUTION WIDTH 13.7 % (11.6-17.2); WHITE BLOOD COUNT 3.3 TH/MM3 (4.0-11.0)
[2016-12-28 07:27] LABS: BICARBONATE 27.5 MEQ/L (21.0-32.0); POTASSIUM 4.2 MEQ/L (3.5-5.1)
[2016-12-28 08:00] VITALS: BP 114/66; PULSE 76; RESP 16; TEMP 98.7; O2SAT 98
[2016-12-28] MEDS: SODIUM CHLOR 0.9% 1000 ML INJ 1,000 ML IV SCH (08:30)
[2016-12-28] MEDS: SODIUM CHLORIDE 0.9% FLUSH 10 ML FLUSH IV FLUSH SCH (09:00)
[2016-12-28] MEDS: AZITHROMYCIN 250 MG TAB PO SCH (09:00)
--- NOTE | 2016-12-28 09:21 | HHI.FPPN ---
Subjective Remarks No acute events overnight. Remains afebrile, vitals stable. Patient's only complaint this morning is of wanting to leave the hospital. Counseled patient extensively on the need to stay and not leave AMA as he is needing IV antibiotics and until Dalvance can potentially be arranged for him. UOP per EMR noted to be [id number] over past 24 hrs; most likely inputted in error. Patient specifically denied fevers, chills, CP, SOB, abdominal pain, pain or swelling of either lower extremity. Objective Vitals Vital Signs Date Time Temp Pulse Resp B/P Pulse Ox O2 Delivery O2 Flow Rate FiO2 12/28/16 08:00 98.7 76 16 114/66 98 12/28/16 04:00 98.9 77 20 128/76 95 12/28/16 00:00 98.2 87 20 122/69 99 12/27/16 20:00 98.7 84 20 108/58 95 12/27/16 19:15 91 12/27/16 17:47 98 21 12/27/16 17:43 98 21 12/27/16 16:00 99.5 74 18 122/64 98 12/27/16 15:06 98 21 12/27/16 12:00 99.3 76 20 121/70 100 I/O 12/27/16 12/27/16 12/27/16 12/28/16 12/28/16 12/28/16 07:00 15:00 23:00 07:00 15:00 23:00 Intake Total 790 ml 720 ml 1148 ml 1742 ml 110 ml Output Total 250 ml 100 ml 9025 ml 1275 ml Balance 540 ml 620 ml -7877 ml 467 ml 110 ml Intake Oral 240 ml 720 ml 220 ml 720 ml IV Total 550 ml 928 ml 1022 ml 110 ml Output Urine Total 250 ml 100 ml 9025 ml 1275 ml # Voids 8 # Bowel Movements 0 1 1 0 Result Diagram: 12/28/16 0508 12/28/16 0508 Objective Remarks GENERAL: cachectic gentleman, lying in bed, in NAD SKIN: excoriations on b/l arms and legs EYES: EOMI. No scleral icterus. ENT: Nose without bleeding, purulent drainage or septal hematoma. Throat without erythema, tonsillar hypertrophy or exudate. Uvula midline. Airway patent. NECK: No JVD or lymphadenopathy. CARDIOVASCULAR: RRR, systolic murmur appreciated LUSB and RUSB RESPIRATORY: Clear to auscultation. Breath sounds equal bilaterally. No wheezes , rales, or rhonchi. GASTROINTESTINAL: Abdomen soft, non-tender, nondistended. No hepato-splenomegaly , or palpable masses. No guarding. MUSCULOSKELETAL: Extremities without clubbing, cyanosis, or edema. BACK: b/l flank moderate tenderness on palpation A/P Assessment and Plan 41 yr old AAM w/ HIV, admitted for endocarditis and pneumonia, possible septic emboli Discharge Planning Patient is uninsured, will work with case management for blue card Per ID, patient might be a candidate for Dalvance due to compliance issues Follow-up with [facility] for anti-viral medications Problem List: (1) Pneumonia Status: Acute Plan: Patient reports about 2 weeks of coughing, non-bloody. Remains afebrile, patient may be unable to mount significant immune response however * CXR 12/15: infiltrate left lower lobe retrocardiac region possible pneumonia * Chest CT 12/15: large masslike area of consolidation involving the left lung base with scattered areas of small nodular like consolidation within the right lung base, infectious etiology most likely * CXR 12/26: bilateral infiltrates * High risk for TB (homeless, prior incarceration) however MTB PCR negative * Sputum cultures (AFB, fungus) to be collected * UA negative * Blood cultures no growth in 1 day * Urine drug screen - positive for cocaine * Patient was on vanc, bactrim, azithro per ID at last hospital visit (12/16) for pneumonia * ID consulted, appreciate recs * Continue patient on Vancomycin dosing per pharmacy and ID, Azithromycin 500mg PO daily, Zosyn 4.5 Gm IV q6h (2) Endocarditis Status: Acute Plan: 3/6 systolic murmur in tricuspid and aortic area * JEREMY 12/17 vegetation on the non-coronary cusp of the aortic valve, mild to moderate mitral valve regurgitation with 2-3 jets noted * TTE: 12/17 left ventricular systolic function is normal ejection fraction, mild mitral valve regurgitation, mobile structure on the right coronary cusp, consistent with vegetation, mild aortic valve regurgitation * Antibiotics as above (3) Diarrhea Status: Acute Plan: Patient reports 1-2 week hx of worsening non-bloody diarrhea. * C. diff PCR positive * Stool Cultures (cryptosporidium, enteric path, giardia, AFB, fungus, WBC) pending; cyclospora negative * Start Flagyl 500 mg po q8h * stool studies 12/17 showed many budding yeast with pseudohyphae- evelin albicans (4) HIV (human immunodeficiency virus infection) Status: Chronic Plan: Patient reports previously being compliant with anti-virals. Has been unable to continue them for the past 3-4 months. * Absolute CD4 count 12/16/16- 154 (5) Anemia Status: Acute Plan: - Hgb on admission 10.2 - Stable - Continue to monitor (6) Nutrition, metabolism, and development symptoms Status: Acute Plan: Fluids: NS 110 mls/hr Electrolytes: monitor and replete as necessary Diet: Regular DVT ppx: Lovenox Problem Qualifiers (1) Pneumonia: Kavin Gupta MD R2 Dec 28, 2016 09:21
[2016-12-28] MEDS ORDERED: metroNIDAZOLE 500 MG TAB PO SCH (10:45)
--- NOTE | 2016-12-28 11:06 | PD.AMA ---
Against Medical Advice Note Diagnosis: (1) HIV (human immunodeficiency virus infection) (2) Pneumonia (3) Endocarditis (4) Diarrhea Discharge Disposition: Against Medical Advice Pt Condition on Discharge: Guarded AMA Statement Patient Kelsie Brady has decided to leave the hospital against medical advice. This patient has the capacity to refuse care and understands the risks of leaving, including permanent disability and/or , and has had an opportunity to ask questions about his condition. The patient has been informed that he may return for care at any time, and follow up has been advised. The patient was counseled extensively by the primary medicine team as well as Infectious Disease and the risk he poses to himself by not remaining hospitalized and receiving medical care. He was counseled extensively this morning prior to leaving AMA however the patient decided to leave AMA anyways. The patient had left the hospital prior to having a chance to speak with the patient again. Family medicine service would accept the patient if he were to return. Kavin Gupta MD R2 Dec 28, 2016 11:06
[2016-12-28] MEDS ORDERED: PHARMACY ORDERED LAB-VANCO TROUGH ONE (13:45)
== END 2016-12-28 10:49 | disposition left against medical advice (07) | DRG 975 ==
LOC: NEPD 08:53 → NEDA 09:46 → N04A 16:10
PROVIDERS: ADMIT Family Medicine; ATTEND Family Medicine
DX: J18.9 Pneumonia, unspecified organism (principal); B20 Human immunodeficiency virus [HIV] disease; R64 Cachexia; I33.0 Acute and subacute infective endocarditis; E11.9 Type 2 diabetes mellitus without complications; D64.9 Anemia, unspecified; Z68.1 Body mass index [BMI] 19.9 or less, adult; F17.210 Nicotine dependence, cigarettes, uncomplicated; F31.9 Bipolar disorder, unspecified; I10 Essential (primary) hypertension; Z91.14 Patient's other noncompliance with medication regimen; Z59.0 Homelessness
CPT/HCPCS: 71020; 80048; 80053; 80202; 80307; 81001; 82948; 83036; 85025; 87015; 87040; 87102; 87116; 87205; 87206; 87207; 87328; 87329; 87493; 87506; 93005; J1650; J2543; J3370; J7030; J7050

== ENCOUNTER 2017-01-08 03:30 | Inpatient (IN) | payer OTHER ==
[2017-01-08] VITALS (8 sets, daily range): BP systolic 97–113; BP diastolic 52–69; PULSE 78–110; RESP 16–20; TEMP 98.7–103; O2SAT 96–98
[~2017-01-08] VITALS: Ht 193 cm; Wt 61.9 kg
--- NOTE | 2017-01-08 03:57 | PD ---
HPI Chief Complaint: Skin Problem Time Seen by Provider: 03:51 Travel History International Travel<30 days: No Contact w/Intl Traveler<30days: No Traveled to known affect area: No History of Present Illness HPI The patient is a 41-year-old after [place] male who presents to the emergency department for multiple complaints. The patient has a history of HIV and is noncompliant on his antivirals. The patient was recently admitted in November 2016 for bilateral pneumonia and then once again on December 17, 2016 where he had a JEREMY performed which revealed culture negative endocarditis. The patient was evaluated by infectious disease at that time and advised to be on long-term antibiotics including vancomycin, Bactrim, and azithromycin. However, the patient signed out against medical health researcher on December 29, 2016. The patient returns today complaining of worsening rash to the arms bilaterally with numbness associated with a rash and occasionally "oozing clear liquid ". He does note occasionally the rash is pruritic and occasionally it is somewhat numb. The patient states he signed out AGAINST MEDICAL ADVICE, states he had "nothing against the hospital ", but just needed to leave the hospital. The patient states he is homeless, has family in the local area, but prefers to be on his own. He does admit that he is not taking care of himself and would like to reconsider treatment for his endocarditis. PFSH Past Medical History Arthritis: No Asthma: No Blood Disorders: No Bipolar Disorder: Yes Anxiety: Yes Depression: No Heart Rhythm Problems: No Cancer: No Cardiovascular Problems: Yes (HTN) High Cholesterol: Yes Chemotherapy: No Chest Pain: No Congestive Heart Failure: No COPD: No Cerebrovascular Accident: No Diabetes: No Diminished Hearing: No Endocrine: No Gastrointestinal Disorders: Yes (diarrhea x2days) GERD: No Genitourinary: No Hiatal Hernia: No Hypertension: Yes Immune Disorder: Yes (HIV) Kidney Stones: No Musculoskeletal: No Neurologic: No Psychiatric: Yes (bipolar and schitophrenia) Reproductive: No Respiratory: No Immunizations Current: Yes Migraines: No Radiation Therapy: No Renal Failure: No Seizures: No Sleep Apnea: No Ulcer: No Tetanus Vaccination: Unknown Past Surgical History Abdominal Surgery: No Cardiac Surgery: No Ear Surgery: No Endocrine Surgery: No Eye Surgery: No Genitourinary Surgery: No Gynecologic Surgery: No Thoracic Surgery: No Other Surgery: Yes (right ankle) Social History Alcohol Use: Yes (OCCASIONALLY) Tobacco Use: Yes (05/22 PPD ) Substance Use: Yes (cocaine and massiel delores) Allergies-Medications (Allergen,Severity, Reaction): Coded Allergies: No Known Allergies (Verified , 01/08/17) Reported Meds & Prescriptions Reported Meds & Active Scripts Active No Active Prescriptions or Reported Medications Review of Systems General / Constitutional: No: Fever Cardiovascular: No: Chest Pain or Discomfort Respiratory: No: Shortness of Breath Gastrointestinal: No: Nausea, Vomiting, Abdominal Pain Skin: Positive Rash, Positive Itching Psychiatric: Positive: Substance Abuse (cocaine use) Hematologic/Lymphatic: Positive: Other (history HIV, noncompliant on antivirals ) Physical Exam Narrative GENERAL: Awake, alert, 41-year-old male who appears older than his stated age but is in no acute respiratory distress. Cachectic appearing. SKIN: Focused skin assessment warm/dry. Circular maculopapular lesions on the extensor surface of the forearms and anterior aspect the lower extremities which are slightly nodular but no bleeding or drainage noted. HEAD: Atraumatic. Normocephalic. EYES: No injection or drainage. ENT: No nasal bleeding or discharge. Poor dentition. NECK: Trachea midline. No JVD. CARDIOVASCULAR: Regular rate and rhythm. Holosystolic murmur. RESPIRATORY: No accessory muscle use. Clear to auscultation. Breath sounds equal bilaterally. GASTROINTESTINAL: Abdomen soft, non-tender, nondistended. No rebound tenderness. MUSCULOSKELETAL: No obvious deformities. No clubbing. No cyanosis. No edema. NEUROLOGICAL: Awake and alert. No obvious cranial nerve deficits. Motor grossly within normal limits. Normal speech. Nonfocal. Oriented 4. PSYCHIATRIC: Appropriate mood and affect; insight and judgment normal. Data Data Last Documented VS Vital Signs Date Time Temp Pulse Resp B/P (MAP) Pulse Ox O2 Delivery O2 Flow Rate FiO2 01/08/17 03:32 98.7 81 16 111/69 (83) 97 Orders Orders Complete Blood Count With Diff (01/08/17 03:52) Comprehensive Metabolic Panel (01/08/17 03:52) Blood Culture (01/08/17 03:52) Lactic Acid (01/08/17 03:52) Sodium Chlor 0.9% 1000 Ml Inj (Ns 1000 M (01/08/17 04:00) Diphenhydramine Inj (Benadryl Inj) (01/08/17 04:00) Vancomycin Inj (Vancomycin Inj) (01/08/17 04:00) Chest, Single Ap (01/08/17 ) Admit Order (Ed Use Only) (01/08/17 05:52) Place In Observation (01/08/17 ) Vital Signs (Adult) Q4H (01/08/17 05:52) Activity Oob With Assistance (01/08/17 05:52) Intake + Output ANA.QSHIFT (01/08/17 05:52) Diet Heart Healthy (01/08/17 Breakfast) Sodium Chloride 0.9% Flush (Ns Flush) (01/08/17 06:00) Sodium Chloride 0.9% Flush (Ns Flush) (01/08/17 09:00) Basic Metabolic Panel (Bmp) (01/09/17 06:00) Complete Blood Count With Diff (01/09/17 06:00) Case Management Consult (01/08/17 05:52) Naloxone Inj (Narcan Inj) (01/08/17 06:00) Labs Laboratory Tests Test 01/08/17 04:00 White Blood Count 3.5 TH/MM3 Red Blood Count 3.70 MIL/MM3 Hemoglobin 10.5 GM/DL Hematocrit 32.2 % Mean Corpuscular Volume 87.0 FL Mean Corpuscular Hemoglobin 28.4 PG Mean Corpuscular Hemoglobin Concent 32.6 % Red Cell Distribution Width 13.7 % Platelet Count 275 TH/MM3 Mean Platelet Volume 7.6 FL Neutrophils (%) (Auto) 44.6 % Lymphocytes (%) (Auto) 30.5 % Monocytes (%) (Auto) 13.4 % Eosinophils (%) (Auto) 10.6 % Basophils (%) (Auto) 0.9 % Neutrophils # (Auto) 1.5 TH/MM3 Lymphocytes # (Auto) 1.1 TH/MM3 Monocytes # (Auto) 0.5 TH/MM3 Eosinophils # (Auto) 0.4 TH/MM3 Basophils # (Auto) 0.0 TH/MM3 CBC Comment DIFF FINAL Differential Comment Blood Urea Nitrogen 10 MG/DL Creatinine 0.95 MG/DL Random Glucose 115 MG/DL Total Protein 8.5 GM/DL Albumin 2.4 GM/DL Calcium Level 8.0 MG/DL Alkaline Phosphatase 75 U/L Aspartate Amino Transf (AST/SGOT) 21 U/L Alanine Aminotransferase (ALT/SGPT) 13 U/L Total Bilirubin 0.3 MG/DL Sodium Level 137 MEQ/L Potassium Level 3.5 MEQ/L Chloride Level 104 MEQ/L Carbon Dioxide Level 28.8 MEQ/L Anion Gap 4 MEQ/L Estimat Glomerular Filtration Rate 107 ML/MIN Lactic Acid Level 1.6 mmol/L MDM Medical Decision Making Medical Screen Exam Complete: Yes Emergency Medical Condition: Yes Medical Record Reviewed: Yes Interpretation(s) Laboratory Tests Test 01/08/17 04:00 White Blood Count 3.5 TH/MM3 Red Blood Count 3.70 MIL/MM3 Hemoglobin 10.5 GM/DL Hematocrit 32.2 % Mean Corpuscular Volume 87.0 FL Mean Corpuscular Hemoglobin 28.4 PG Mean Corpuscular Hemoglobin Concent 32.6 % Red Cell Distribution Width 13.7 % Platelet Count 275 TH/MM3 Mean Platelet Volume 7.6 FL Neutrophils (%) (Auto) 44.6 % Lymphocytes (%) (Auto) 30.5 % Monocytes (%) (Auto) 13.4 % Eosinophils (%) (Auto) 10.6 % Basophils (%) (Auto) 0.9 % Neutrophils # (Auto) 1.5 TH/MM3 Lymphocytes # (Auto) 1.1 TH/MM3 Monocytes # (Auto) 0.5 TH/MM3 Eosinophils # (Auto) 0.4 TH/MM3 Basophils # (Auto) 0.0 TH/MM3 CBC Comment DIFF FINAL Differential Comment Blood Urea Nitrogen 10 MG/DL Creatinine 0.95 MG/DL Random Glucose 115 MG/DL Total Protein 8.5 GM/DL Albumin 2.4 GM/DL Calcium Level 8.0 MG/DL Alkaline Phosphatase 75 U/L Aspartate Amino Transf (AST/SGOT) 21 U/L Alanine Aminotransferase (ALT/SGPT) 13 U/L Total Bilirubin 0.3 MG/DL Sodium Level 137 MEQ/L Potassium Level 3.5 MEQ/L Chloride Level 104 MEQ/L Carbon Dioxide Level 28.8 MEQ/L Anion Gap 4 MEQ/L Estimat Glomerular Filtration Rate 107 ML/MIN Lactic Acid Level 1.6 mmol/L Chest x-ray reveals no acute disease. No significant change has occurred. Differential Diagnosis Differential diagnoses includes culture negative endocarditis, HIV, AIDS defining illness, dermatitis, pneumonia, noncompliance, sepsis. Narrative Course IV was established, labs are drawn and sent, and the patient was placed on cardiac telemetry monitoring and continuous pulse oximetry monitoring. The patient states he would like to be admitted for treatment of his endocarditis. I had a discussion with the patient regarding the need to complete treatment to avoid antibiotic resistance, the patient states he is ready for treatment, but cannot guarantee he will stay in the hospital for a prolonged period of time. He does state they were considering a once weekly injection of Dalvance, however , he has not followed up in regards to possible treatment with once weekly injections. Chest x-ray was obtained. I did review the EMR including the infectious disease physicians notes, Dr. Burch, Dr. Kwon's JEREMY report, and previous chest x-ray results revealing bilateral pneumonia. The patient is immunocompromised, his last CD4 levels were low and he is noncompliant on his antivirals. Therefore, the patient will be admitted to the on-call medical service. He was administered vancomycin in the emergency department. Patient may benefit from infectious disease consultation in regards to outpatient Dalvance therapy if they think it is indicated. I doubt the patient will be admitted for a full duration of treatment as he is signed out AGAINST MEDICAL ADVICE in the past. I discussed the patient with Dr. Malone who recommends discussion with case management in regards to possible Dalvance administration in the ED and subsequent outpatient follow-up. Therefore, I discussed the patient with Gina Flores in regards to possible Dlavnace administration. I discussed the patient with case management who states the patient with his patient assistance labs, he will need to be reenrolled. Patient assistance. They also states he will need to talk to a Dalvance underwriting service representative to see if the patient qualifies, they' re unable to speak to anyone until after 8 AM. Therefore, the patient will be 23 hour observation to the medical service, case management in the ER will let case management in the observation unit no that this needs to be followed up so the patient can be treated as an outpatient as he is noncompliant and unlikely to complete treatment in the hospital. I had another discussion with Dr. Malone at 5:50 AM and it was agreed the patient be 23 hour observation so he can be evaluated by Dr. Burch his infectious disease specialist to evaluate if the patient is a candidate for outpatient Dalvance and is a candidate for therapy. Physician Communication Physician Communication The on-call medical service was paged for 23 hour observation Diagnosis Primary Impression: Endocarditis of aortic valve Additional Impression: Rash and nonspecific skin eruption Admitting Information Admitting Physician Requests: Observation Scripts No Active Prescriptions or Reported Meds Condition: Stable Patricio Mar MD Jan 08, 2017 03:57
[2017-01-08] MEDS ORDERED: VANCOMYCIN INJ 1,000 MG in SODIUM CHLOR 0.9% 250 ML INJ 250 ML IV ONE (04:00)
[2017-01-08] MEDS ORDERED: diphenhydrAMINE HCL 50 MG/ML VIAL IV PUSH ONE (04:00)
[2017-01-08] MEDS ORDERED: SODIUM CHLOR 0.9% 1000 ML INJ 1,000 ML IV ONE ×2 (04:00→10:00)
[2017-01-08 04:40] LABS: AUTOMATED NEUTROPHIL # 1.5 TH/MM3 (1.8-7.7); BASOPHIL % 0.9 % (0.0-2.0); EOSINOPHIL # 0.4 TH/MM3 (0-0.4); EOSINOPHIL % 10.6 % (0.0-4.0); HEMATOCRIT 32.2 % (39.0-51.0); HEMO FLAGS DIFF FINAL; LYMPH % 30.5 % (9.0-44.0); LYMPHOCYTE # 1.1 TH/MM3 (1.0-4.8); MEAN CORPUSCULAR HEMOGLOBIN 28.4 PG (27.0-34.0); MEAN CORPUSCULAR HGB CONC 32.6 % (32.0-36.0); MONO % 13.4 % (0.0-8.0); NEUT % 44.6 % (16.0-70.0); PLATELET COUNT 275 TH/MM3 (150-450); RED CELL DISTRIBUTION WIDTH 13.7 % (11.6-17.2); WHITE BLOOD COUNT 3.5 TH/MM3 (4.0-11.0)
[2017-01-08 04:50] LABS: ALT (GPT) 13 U/L (12-78); ANION GAP 4 MEQ/L (5-15); AST (GOT) 21 U/L (15-37); BICARBONATE 28.8 MEQ/L (21.0-32.0); BLOOD UREA NITROGEN 10 MG/DL (7-18); CHLORIDE 104 MEQ/L (98-107); GLOMERULAR FILTRATION RATE 107 ML/MIN (>89); POTASSIUM 3.5 MEQ/L (3.5-5.1); SODIUM (NA) 137 MEQ/L (136-145)
[2017-01-08 04:52] LABS: ALKALINE PHOSPHATASE 75 U/L (45-117); TOTAL BILIRUBIN ADULT 0.3 MG/DL (0.2-1.0)
--- NOTE | 2017-01-08 04:55 | RADRPT ---
EXAM DATE/TIME: 01/08/2017 04:12 [facility] COMPARISON: CHEST SINGLE AP, December 15, 2016, 5:25. INDICATIONS : Fever, cough. MEDICAL HISTORY : Hypertension. HIV. Diabetes mellitus type II. SURGICAL HISTORY : None. ENCOUNTER: Initial ACUITY: 1 day PAIN SCORE: 0/10 LOCATION: Bilateral chest FINDINGS: A single view of the chest demonstrates the lungs to be symmetrically aerated without evidence of mas s, infiltrate or effusion. The cardiomediastinal contours are unremarkable. Osseous structures are intact. CONCLUSION: No acute disease. No significant change has occurred. Herbert Santiago MD on January 08, 2017 at 4:52 Board Certified Radiologist. This report was verified electronically.
[2017-01-08] MEDS ORDERED: SODIUM CHLORIDE 0.9% FLUSH 10 ML FLUSH IV FLUSH PRN ×2 (06:00→11:45)
[2017-01-08] MEDS ORDERED: NALOXONE HCL 0.4 MG/ML AMP IV PRN ×2 (06:00→11:45)
[2017-01-08] MEDS ORDERED: Vancomycin Consult Pharmacy 1 EA OTHER SCH (09:00)
[2017-01-08] MEDS ORDERED: SODIUM CHLORIDE 0.9% FLUSH 10 ML FLUSH IV FLUSH SCH (09:00)
[2017-01-08] MEDS ORDERED: ACETAMINOPHEN 325 MG TAB PO PRN (09:45)
[2017-01-08] MEDS ORDERED: SODIUM CHLOR 0.9% 1000 ML INJ 1,000 ML IV SCH (10:00)
[2017-01-08] MEDS: PIPERACIL-TAZO 4.5 GM PREMIX 100 ML IV SCH ×3 (10:00→22:06)
--- NOTE | 2017-01-08 11:12 | HHI.PR ---
Subjective . saw patient, awake, alert and oriented x 3, vitals stable except mild tachycardia and fever, given boluses and tylenol, iv abx started. [facility] team notified, they will accept pt for admission given their last notice on pt's chart to do so when he left AMA on 12/28/16. Philip Doty MD Jan 08, 2017 11:12
--- NOTE | 2017-01-08 11:23 | HHI.HP ---
HPI Service Family Medicine Primary Care Physician No Primary Care Physician Admission Diagnosis endocarditis aortic valve, noncompliance, immunocompromise Diagnoses: International Travel<30 Days: No Contact w/Intl Traveler<30days: No Known Affected Area: No History of Present Illness Patient is a 41-year-old male with a past medical history of HIV, bilateral pneumonia, endocarditis with an aortic vegetation seen on 12/17 on JEREMY, homelessness, syphilis treated with penicillin, hepatitis B, hepatitis C, cocaine abuse, and DVT in his right leg, presenting with new sores on his arms, as well as fevers and chills 24 hours. CC: "Sore on my arms" HPI: The bumps on his arms started 3 week ago and just recently (1 week ago) became blisters and reported some numbness in these areas. He also notices that the blister pop and have a "foamy" discharge that is clear. The lesions are painful. He says, "I thought I was having a stroke" because of the numbness he was having. No other bumps on his arms or other parts of his body that he is aware of. He is also concerned about his HIV and bacterial blood infection. He is not taking any medications for HIV. "I am here for the long morel." ROS: Diarrhea -- "has been alright" Now having 1-2 formed BMs per day. Cocaine 2 days ago, smoked. Denies IVD. No chest pain currently. SOB every now and again, feels like "I'm closed in" especially with walking in heat. Waking up at night SOB frequently for the past several weeks. Since his pneumonia. Not coughing. No new sputum production. No hemoptysis. He has been complaining of an upper respiratory tract infection with yellow mucus from nose. Denies stomach pain. Nausea or vomiting. Eating well. He has been reporting subjective fevers and chills - "hot flashes" all day on 01/09. Also significant for + Weight loss, not certain amount. He denies swelling in extremities, new muscle aches or cramping , but has constant bone pain. He denies vision changes, blurry vision, or stiff neck. Denies headaches. 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 Homelessness. Marijuana everyday Smoking cocaine daily. "keeps me up and numb". Family History: Mother - hypertension Father - hypertension Brothers / sisters - history uncertain, but healthy from what he knows (Alberto Corcoran MD, R3) Past Family Social History Allergies: Coded Allergies: No Known Allergies (Verified , 01/08/17) Physical Exam Vital Signs Vital Signs Date Time Temp Pulse Resp B/P (MAP) Pulse Ox O2 Delivery O2 Flow Rate FiO2 01/08/17 09:16 102.0 110 20 101/59 (73) 97 01/08/17 08:23 103.0 105 20 113/62 (79) 96 01/08/17 03:32 98.7 81 16 111/69 (83) 97 Physical Exam GENERAL: Very tired appearing, cachectic. SKIN: Multiple skin lesions on his extensor surfaces of his arms, 1 cm round hyperpigmented, raised nodules, with central clearing. No surrounding erythema. HEAD: Atraumatic. Normocephalic. No temporal or scalp tenderness. EYES: Conjunctival injection. White hazy ring around irises b/l. Equal round and reactive to light. ENT: Nose without bleeding, purulent drainage or septal hematoma. Significant submental, and anterior cervical lymphadenopathy. NECK: Trachea midline. No meningeal signs. Neck soft to palpation. CARDIOVASCULAR: 2/6 systolic ejection murmur heard best at the mid axillary line , at the fifth intercostal space. Radiating to the axilla. Pulses equal to all extremities. RESPIRATORY: Poor aeration bilaterally. No obvious crackles or rales. GASTROINTESTINAL: Abdomen soft, non-tender, nondistended. No hepato-splenomegaly , or palpable masses. No guarding. MUSCULOSKELETAL: Extremities without clubbing, cyanosis, or edema. No joint tenderness, effusion, or edema noted. No calf tenderness. Negative Homans sign bilaterally. NEUROLOGICAL: Awake and alert. Cranial nerves II through XII intact. Motor and sensory grossly within normal limits. Five out of 5 muscle strength in all muscle groups. Normal speech. No neurologic deficit. Laboratory Laboratory Tests Test 01/08/17 04:00 White Blood Count 3.5 Red Blood Count 3.70 Hemoglobin 10.5 Hematocrit 32.2 Mean Corpuscular Volume 87.0 Mean Corpuscular Hemoglobin 28.4 Mean Corpuscular Hemoglobin Concent 32.6 Red Cell Distribution Width 13.7 Platelet Count 275 Mean Platelet Volume 7.6 Neutrophils (%) (Auto) 44.6 Lymphocytes (%) (Auto) 30.5 Monocytes (%) (Auto) 13.4 Eosinophils (%) (Auto) 10.6 Basophils (%) (Auto) 0.9 Neutrophils # (Auto) 1.5 Lymphocytes # (Auto) 1.1 Monocytes # (Auto) 0.5 Eosinophils # (Auto) 0.4 Basophils # (Auto) 0.0 CBC Comment DIFF FINAL Differential Comment Blood Urea Nitrogen 10 Creatinine 0.95 Random Glucose 115 Total Protein 8.5 Albumin 2.4 Calcium Level 8.0 Alkaline Phosphatase 75 Aspartate Amino Transf (AST/SGOT) 21 Alanine Aminotransferase (ALT/SGPT) 13 Total Bilirubin 0.3 Sodium Level 137 Potassium Level 3.5 Chloride Level 104 Carbon Dioxide Level 28.8 Anion Gap 4 Estimat Glomerular Filtration Rate 107 Lactic Acid Level 1.6 Date/Time Source Procedure Growth Status 01/08/17 04:05 Blood Peripheral Aerobic Blood Culture Pending Received 01/08/17 04:05 Blood Peripheral Anaerobic Blood Culture Pending Received (Alberto Corcoran MD, R3) Result Diagram: 01/08/17 0400 01/08/17 0400 Imaging Last 72 hours Impressions Chest X-Ray 01/08/17 0000 Signed Impressions: Service Date/Time: Sunday, January 08, 2017 04:12 - CONCLUSION: No acute disease. No significant change has occurred. Herbert Santiago MD (Alberto Corcoran MD, R3) Septic Shock Reassessment Heart: Regular rate and rhythm Lungs: Clear Skin: Warm (Alberto Corcoran MD, R3) Caprini VTE Risk Assessment Caprini VTE Risk Assessment: Mod/High Risk (score >= 2) Caprini Risk Assessment Model Point Value = 1 Point Value = 2 Point Value = 3 Point Value = 5 Age 41-60 Minor surgery BMI > 25 kg/m2 Swollen legs Varicose veins or History of unexplained or recurrent spontaneous Oral contraceptives or hormone replacement Sepsis (< 1 month) Serious lung disease, including pneumonia (< 1 month) Abnormal pulmonary function Acute myocardial infarction Congestive heart failure (< 1 month) History of inflammatory bowel disease Medical patient at bed rest Age 61-74 Arthroscopic surgery Major open surgery (> 45 min) Laparoscopic surgery (> 45 min) Malignancy Confined to bed (> 72 hours) Immobilizing plaster cast Central venous access Age >= 75 History of VTE Family history of VTE Factor V Leiden Prothrombin [id number] Lupus anticoagulant Anticardiolipin antibodies Elevated serum homocysteine Heparin-induced thrombocytopenia Other congenital or acquired thrombophilia Stroke (< 1 month) Elective arthroplasty Hip, pelvis, or leg fracture Acute spinal cord injury (< 1 month) Prophylaxis Regimen Total Risk Factor Score Risk Level Prophylaxis Regimen 0-1 Low Early ambulation 2 Moderate Order ONE of the following: *Sequential Compression Device (SCD) *Heparin 5000 units SQ BID 3-4 Higher Order ONE of the following medications: *Heparin 5000 units SQ TID *Enoxaparin/Lovenox 40 mg SQ daily (WT < 150 kg, CrCl > 30 mL/min) *Enoxaparin/Lovenox 30 mg SQ daily (WT < 150 kg, CrCl > 10-29 mL/min) *Enoxaparin/Lovenox 30 mg SQ BID (WT < 150 kg, CrCl > 30 mL/min) AND/OR *Sequential Compression Device (SCD) 5 or more Highest Order ONE of the following medications: *Heparin 5000 units SQ TID (Preferred with Epidurals) *Enoxaparin/Lovenox 40 mg SQ daily (WT < 150 kg, CrCl > 30 mL/min) *Enoxaparin/Lovenox 30 mg SQ daily (WT < 150 kg, CrCl > 10-29 mL/min) *Enoxaparin/Lovenox 30 mg SQ BID (WT < 150 kg, CrCl > 30 mL/min) AND *Sequential Compression Device (SCD) (Alberto Corcoran MD, R3) Assessment and Plan Assessment and Plan Patient is a 41-year-old male admitted in November 2016 for bilateral pneumonia, and then on December 17, 2016, for culture-negative endocarditis. He left AMA during both hospitalizations. He returns with new lesions on his arms, as well as subjective fevers and chills. Problem #1: Fever/chills Meeting sepsis criteria on admission, with fevers as high as 103.0 F, tachycardic to 110/m, and a possible source being bacteremia/endocarditis. Lactic acid was within normal limits. There was discussion about Dalvance injections weekly for treatment if approved. For now, will continue Vancomycin and Zosyn. Previous blood cultures were negative from 12/15, and 12/26. Repeat 2. JEREMY on 12/17 showed: "EF of 55-60%, with a mild to moderate mitral valve regurgitation with 2-3 jets noted. Findings consistent with vegetation on the non-coronary cusp of the aortic valve. Appears to be 0.8 cm x 0.8 cm. Trace aortic valve regurgitation." Consult infectious disease. Appreciate their assistance. IV fluids, received 1 L bolus x 2. We'll start normal saline on 100 ml/hr; monitor I&Os. Problem #2: Arm Lesions May represent secondary syphilis, vs sarposi carcinoma, vs. gummas vs. other. May consider biopsy. Problem #3: HIV Repeat CD4, and HIV viral load. Problem #4: Homelessness Consult case management. Problem #5: Reported Hepatitis B/C LFTs at goal. Hepatitis C antibody negative on 12/16/16. Hepatitis B surface antigen negative on 12/16/16, Hep B core IgM antibody negative. Problem #7: FEN IVF as above Nutrition: Full diet with MV daily Electrolytes: at goal cont to monitor daily BMP DVT ppx: Lovenox 40 units sq daily. wdw Dr. Driscoll Code Status Full Code. (Alberto Corcoran MD, R3) Attending Attestation THIS CASE WAS DISCUSSED WITH THE RESIDENT PHYSICIANS. I HAVE REVIEWED THE RECORD AND AGREE WITH THE ABOVE NOTE AND PLAN OF CARE WAS DISCUSSED. I HAVE AUTHORIZED THE ORDER FOR ADMISSION TO AN IN-PATIENT STATUS. (Ramin Driscoll MD) Physician Certification 2 Midnight Certification Type: Admission for Inpatient Services Order for Inpatient Services The services are ordered in accordance with Medicare regulations or non- Medicare payer requirements, as applicable. In the case of services not specified as inpatient-only, they are appropriately provided as inpatient services in accordance with the 2-midnight benchmark. Estimated LOS (days): 3 3 days is the estimated time the patient will need to remain in the hospital, assuming treatment plan goals are met and no additional complications. Post-Hospital Plan: Home (Alberto Corcoran MD, R3) Alberto Corcoran MD, R3 Jan 08, 2017 11:23 Ramin Driscoll MD Jan 08, 2017 18:44
[2017-01-08] MEDS ORDERED: SENNOSIDES 8.6 MG TAB PO PRN (11:45)
[2017-01-08] MEDS ORDERED: TEMAZEPAM 15 MG CAP PO PRN (11:45)
[2017-01-08] MEDS ORDERED: MAGNESIUM HYDROXIDE SUSP 30 ML CUP PO PRN (11:45)
[2017-01-08] MEDS ORDERED: LACTULOSE SYRUP 20 GM/30 ML CUP PO PRN (11:45)
[2017-01-08] MEDS ORDERED: BISACODYL 10 MG SUPP RECTAL PRN (11:45)
[2017-01-08] MEDS: VANCOMYCIN 1,000 MG/NS 250 ML IV SCH ×4 (12:00→20:57)
[2017-01-08] MEDS: ENOXAPARIN SODIUM 40 MG/0.4 ML SYRINGE SQ SCH (13:16)
[2017-01-08] MEDS: SODIUM CHLOR 0.9% 1000 ML INJ 1,000 ML IV SCH ×2 (13:16→22:36)
[2017-01-08] MEDS: ACETAMINOPHEN 325 MG TAB PO PRN (17:10)
[2017-01-08] MEDS: DOCUSATE SODIUM 50 MG/SENNA 8.6 MG TAB PO SCH (20:57)
[2017-01-08] MEDS: SODIUM CHLORIDE 0.9% FLUSH 10 ML FLUSH IV FLUSH SCH (20:58)
[2017-01-09] VITALS (7 sets, daily range): BP systolic 98–122; BP diastolic 56–80; PULSE 64–90; RESP 16–20; TEMP 97.7–101.7; O2SAT 95–100
[2017-01-09] MEDS ORDERED: PHARMACY ORDERED LAB ONE (03:45)
[2017-01-09] MEDS: VANCOMYCIN 1,000 MG/NS 250 ML IV SCH ×6 (04:00→20:41)
[2017-01-09] MEDS: PIPERACIL-TAZO 4.5 GM PREMIX 100 ML IV SCH ×2 (04:15→10:23)
[2017-01-09 05:35] LABS: AUTOMATED NEUTROPHIL # 3.3 TH/MM3 (1.8-7.7); BASOPHIL % 0.5 % (0.0-2.0); EOSINOPHIL # 0.4 TH/MM3 (0-0.4); EOSINOPHIL % 8.3 % (0.0-4.0); HEMATOCRIT 30.4 % (39.0-51.0); HEMO FLAGS DIFF FINAL; LYMPH % 9.9 % (9.0-44.0); LYMPHOCYTE # 0.4 TH/MM3 (1.0-4.8); MEAN CELL VOLUME 87.6 FL (80.0-100.0); MEAN CORPUSCULAR HEMOGLOBIN 28.1 PG (27.0-34.0); MONO % 7.1 % (0.0-8.0); NEUT % 74.2 % (16.0-70.0); PLATELET COUNT 243 TH/MM3 (150-450); RED BLOOD COUNT 3.47 MIL/MM3 (4.50-5.90); RED CELL DISTRIBUTION WIDTH 14.3 % (11.6-17.2); WHITE BLOOD COUNT 4.4 TH/MM3 (4.0-11.0)
[2017-01-09 05:57] LABS: ANION GAP 5 MEQ/L (5-15)
[2017-01-09 05:58] LABS: ALT (GPT) 10 U/L (12-78); AST (GOT) 16 U/L (15-37); BICARBONATE 23.9 MEQ/L (21.0-32.0); BLOOD UREA NITROGEN 11 MG/DL (7-18); CHLORIDE 109 MEQ/L (98-107); GLOMERULAR FILTRATION RATE 85 ML/MIN (>89); POTASSIUM 3.7 MEQ/L (3.5-5.1); SODIUM (NA) 138 MEQ/L (136-145)
[2017-01-09 06:02] LABS: ALKALINE PHOSPHATASE 58 U/L (45-117); TOTAL BILIRUBIN ADULT 0.3 MG/DL (0.2-1.0)
[2017-01-09 06:06] LABS: CALCIUM-PROTEIN CORRECTED 7.3 MG/DL (8.5-10.1)
[2017-01-09] MEDS ORDERED: CALCIUM CARBONATE 1.25 GM (CA 500 MG) TAB PO ONE (07:30)
[2017-01-09] MEDS: MULTIVITAMIN TAB PO SCH (08:10)
[2017-01-09] MEDS: FOLIC ACID 1 MG TAB PO SCH (08:10)
[2017-01-09] MEDS: THIAMINE HCL 100 MG TAB PO SCH (08:11)
[2017-01-09] MEDS: DOCUSATE SODIUM 50 MG/SENNA 8.6 MG TAB PO SCH ×2 (08:11→20:41)
[2017-01-09] MEDS: ACETAMINOPHEN 325 MG TAB PO PRN (08:14)
[2017-01-09] MEDS: SODIUM CHLORIDE 0.9% FLUSH 10 ML FLUSH IV FLUSH SCH ×2 (09:43→20:41)
[2017-01-09] MEDS: SODIUM CHLOR 0.9% 1000 ML INJ 1,000 ML IV SCH ×2 (10:24→19:00)
[2017-01-09 12:21] LABS: HEMOGLOBIN A1a 1.4 %; HEMOGLOBIN A1b 0.9 %; HEMOGLOBIN Ao 84.1 %; HEMOGLOBIN F 1.2 %; HEMOGLOBIN P3 3.8 %
--- NOTE | 2017-01-09 13:13 | PD.ID.CON ---
History of Present Illness Service ID Consult Requested By . Patient now transferred to the Family medicine service. Reason for Consult Evaluation and Mment of possible Sepsis in an IC patient. Primary Care Physician No Primary Care Physician Diagnoses: History of Present Illness Mr. 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 Patient reportedly was seeing at [facility] clinic. Patient has been admitted on 3 occasions in the past and signed off AMA. Patient was being evaluated and treated for pneumonia and possible endocarditis based on a JEREMY finding. He underwent workup for endocarditis including Bartonella which was negative as well as fungal. Patient bacterial cultures are negative but patient hadn't been to multiple emergency room's and likely receive some antibiotics off and on. Essentially patient was being managed as a culture-negative endocarditis. On his last admission I asked the patient to consider staying into the hospital to complete a six-week course of IV antibiotics and he blatantly refuses to stay in the hospital. At that time given his multiple admissions and having signed off AMA I offered him Dalvance to be given every 12 days in the infusion clinic. Although he agreed to it initially he again signed off AMA. On his prior admissions patient also had history of fatigue and diarrhea. He underwent evaluation for the same. No AFB in stool or AFB in blood identified so far. He was compliant with antiretrovirals until he was incarcerated this year and was unable to continue them. Pt reports\ poor appetite, fatigue 30 lb weight loss and severe diarrhea ( 7-8 BMs/a day with non-bloody, watery, greenish stool). Endorses fevers, chronic dry, sometimes productive cough, no hemoptysis and SOB w/ exertion. During previous admissions he had JEREMY doine and was found to have culture negative endocarditis (0.8 cm veg on aortic valve ). Routine bacterial clx neg; Bartonella serologies negative as well. His last CD4 count 2 weeks ago was 154. He grew out some mold yet to be ID'd in the sputum. ID consulted for evaluation and Mment of possible new sepsis, Culture negative endocarditis, failure to thrive, HIV/AIDS. Review of Systems ROS Limitations: Poor Historian Constitutional: COMPLAINS OF: Diaphoretic episodes, Fever, Night Sweats, DENIES : Fatigue, Weight gain, Weight loss, Chills, Dizziness, Change in appetite Except as stated in HPI: all other systems reviewed are Neg Past Family Social History Allergies: Coded Allergies: No Known Allergies (Verified , 01/08/17) Past Medical History HIV disease, non comliance LTBI sp INH tx in 2001 HTN Bipolar HepB/C, patient reports being treated in the past DM syphilis treated in past. Past Surgical History Left ankle surgery for calcaneus tendon removal Reported Medications Reported Meds & Active Scripts Active No Active Prescriptions or Reported Medications Active Ordered Medications Current Medications Medications (Trade) Dose Ordered Sig/Meet Route Start Time Stop Time Status Last Admin Piperacillin Sod/ Tazobactam Sod 100 ml @ 200 mls/hr Q6H IV 01/08/17 10:00 01/09/17 10:23 Pharmacy Profile Note 0 ml @ 0 mls/hr UNSCH OTHER 01/08/17 09:00 Vancomycin HCl 1000 mg/Sodium Chloride 250 ml @ 250 mls/hr Q8H IV 01/08/17 12:00 01/09/17 11:31 (Tylenol) 325 mg Q4H PRN PO 01/08/17 09:45 01/08/17 09:58 Sodium Chloride 1,000 ml @ 100 mls/hr Q10H IV 01/08/17 13:00 01/09/17 10:24 (NS Flush) 2 ml UNSCH PRN IV FLUSH 01/08/17 11:45 (NS Flush) 2 ml BID IV FLUSH 01/08/17 21:00 (Tylenol) 650 mg Q4H PRN PO 01/08/17 11:45 01/09/17 08:14 (Restoril) 15 mg HS PRN PO 01/08/17 11:45 (Lovenox Inj) 40 mg Q24H SQ 01/08/17 14:00 (Narcan Inj) 0.4 mg UNSCH PRN IV 01/08/17 11:45 (Kiki-Colace) 1 tab BID PO 01/08/17 21:00 01/08/17 20:57 (Milk Of Magnesia Liq) 30 ml Q12H PRN PO 01/08/17 11:45 (Senokot) 17.2 mg Q12H PRN PO 01/08/17 11:45 (Dulcolax Supp) 10 mg DAILY PRN RECTAL 01/08/17 11:45 (Lactulose Liq) 30 ml DAILY PRN PO 01/08/17 11:45 (Theragran) 1 tab DAILY PO 01/09/17 09:00 01/09/17 08:10 (Vitamin B1) 100 mg DAILY PO 01/09/17 09:00 01/09/17 08:11 (Folate) 1 mg DAILY PO 01/09/17 09:00 01/09/17 08:10 Miscellaneous Information SPECIFIC LAB TO BE DRAWN:VANCOMYCIN TROUGH DATE TO... ONCE ONCE .XX 01/10/17 11:45 01/10/17 11:46 Family History reviewed and NC to current ID problems. Social History Homeless for the past 2 months. Says he wanders the streets night and day. Smokes 1/2 ppd. Drinks liquor occasionally (reports 2 x week), Marijuana and cocaine use, denies IV drug use (states he never used IVDA) Physical Exam Vital Signs Vital Signs Date Time Temp Pulse Resp B/P (MAP) Pulse Ox O2 Delivery O2 Flow Rate FiO2 01/09/17 12:00 97.7 79 18 98/56 (70) 99 01/09/17 07:39 88 01/09/17 07:27 101.7 86 20 112/56 (74) 95 01/09/17 03:51 99.4 65 18 106/62 (77) 98 01/09/17 00:28 100.2 64 18 110/65 (80) 98 01/08/17 22:28 94 01/08/17 19:52 100.4 78 18 103/61 (75) 98 01/08/17 16:54 102.6 101 20 105/59 (74) 01/08/17 14:10 96 Physical Exam GENERAL: Thin built, poorly nourished patient, in no apparent distress. SKIN: No rashes, ecchymoses or lesions. Cool and dry. HEAD: Atraumatic. Normocephalic. No temporal or scalp tenderness. EYES: Pupils equal round and reactive. Extraocular motions intact. No scleral icterus. No injection or drainage. ENT: Nose without bleeding, purulent drainage or septal hematoma. Throat without erythema, tonsillar hypertrophy or exudate. Uvula midline. Airway patent. NECK: Trachea midline. Supple, nontender, no meningeal signs. CARDIOVASCULAR: Regular rate and rhythm without murmurs, gallops, or rubs. RESPIRATORY: Clear to auscultation. Breath sounds equal bilaterally. No wheezes , rales, or rhonchi. GASTROINTESTINAL: Abdomen soft, non-tender, nondistended. MUSCULOSKELETAL: Extremities without clubbing, cyanosis, or edema. No joint tenderness, effusion, or edema noted. No calf tenderness. Negative Homans sign bilaterally. NEUROLOGICAL: Awake and alert. Grossly non focal Psych: not cooperative, apathy. IV line sites with no e.o infection. Laboratory Laboratory Tests Test 01/08/17 13:50 01/08/17 15:40 01/09/17 03:50 01/09/17 04:50 Urine Opiates Screen NEG Urine Barbiturates Screen NEG Urine Amphetamines Screen NEG Urine Benzodiazepines Screen NEG Urine Cocaine Screen POS Urine Cannabinoids Screen NEG Troponin I LESS THAN 0.02 Vancomycin Level Trough 11.0 White Blood Count 4.4 Red Blood Count 3.47 Hemoglobin 9.7 Hematocrit 30.4 Mean Corpuscular Volume 87.6 Mean Corpuscular Hemoglobin 28.1 Mean Corpuscular Hemoglobin Concent 32.0 Red Cell Distribution Width 14.3 Platelet Count 243 Mean Platelet Volume 7.8 Neutrophils (%) (Auto) 74.2 Lymphocytes (%) (Auto) 9.9 Monocytes (%) (Auto) 7.1 Eosinophils (%) (Auto) 8.3 Basophils (%) (Auto) 0.5 Neutrophils # (Auto) 3.3 Lymphocytes # (Auto) 0.4 Monocytes # (Auto) 0.3 Eosinophils # (Auto) 0.4 Basophils # (Auto) 0.0 CBC Comment DIFF FINAL Differential Comment Blood Urea Nitrogen 11 Creatinine 1.16 Random Glucose 106 Total Protein 6.4 Albumin 1.7 Calcium Level 6.9 Alkaline Phosphatase 58 Aspartate Amino Transf (AST/SGOT) 16 Alanine Aminotransferase (ALT/SGPT) 10 Total Bilirubin 0.3 Sodium Level 138 Potassium Level 3.7 Chloride Level 109 Carbon Dioxide Level 23.9 Anion Gap 5 Estimat Glomerular Filtration Rate 85 Protein Corrected Calcium 7.3 Date/Time Source Procedure Growth Status 01/08/17 04:05 Blood Peripheral Aerobic Blood Culture - Preliminary NO GROWTH IN 1 DAY Resulted 01/08/17 04:05 Blood Peripheral Anaerobic Blood Culture - Preliminary NO GROWTH IN 1 DAY Resulted Result Diagram: 01/09/17 0450 01/09/17 0450 Imaging Last Impressions Chest X-Ray 01/08/17 0000 Signed Impressions: Service Date/Time: Sunday, January 08, 2017 04:12 - CONCLUSION: No acute disease. No significant change has occurred. Herbert Santiago MD Assessment and Plan Assessment and Plan Possible Sepsis. Immune compromised patient. Possible bacteremia (BCX pending) Fevers high grade: new infection, endocarditis, HIV related. Failure to thrive: homeless, HIV Culture negative endocarditis: 0.8 cm aortic valve. HIV/AIDS: CD4 154 last admission Recs DC Zosyn IV Continue Vanco IV (target trough 15-20) Follow cultures Follow clinically. Pt still has high grade fevers. Dalvance plan on hold pending cultures, fever trend and Clinical course. recommend inpatient admission for further evaluation. Difficult patient. D.w patient that Dalvance cannot be started unless fevers resolve, cultures negative. Will reassess in 3-4 days. Start bactrim for PCP prophylaxis as last CD4 was 154. Cari Burch MD Jan 09, 2017 13:13
[2017-01-09] MEDS: ENOXAPARIN SODIUM 40 MG/0.4 ML SYRINGE SQ SCH (14:00)
--- NOTE | 2017-01-09 19:12 | HHI.FPPN ---
Subjective Remarks Patient states that he is doing well this morning. He no longer has numbness in his forearms. He says that the rash most likely started from mosquito bites that he got a few weeks ago and subsequently scratched. He reiterated that he plans to stay in the hospital this time. He was unaware of his C. difficile diagnosis. States that he has not had diarrhea in a few days. No chest pain, no shortness of breath, no fever or chills, no abdominal pain, no nausea or vomiting, no diarrhea or constipation. (Flory Martinez MD R1) Objective Vitals Vital Signs Date Time Temp Pulse Resp B/P (MAP) Pulse Ox O2 Delivery O2 Flow Rate FiO2 01/09/17 16:36 99.4 79 16 122/80 (94) 96 01/09/17 12:00 97.7 79 18 98/56 (70) 99 01/09/17 07:39 88 01/09/17 07:27 101.7 86 20 112/56 (74) 95 01/09/17 03:51 99.4 65 18 106/62 (77) 98 01/09/17 00:28 100.2 64 18 110/65 (80) 98 01/08/17 22:28 94 01/08/17 19:52 100.4 78 18 103/61 (75) 98 I/O 01/08/17 01/08/17 01/08/17 01/09/17 01/09/17 01/09/17 07:00 15:00 23:00 07:00 15:00 23:00 Intake Total 314 ml 100 ml Balance 314 ml 100 ml Intake IV Total 314 ml 100 ml (Flory Martinez MD R1) Result Diagram: 01/09/17 0450 01/09/17 0450 Imaging Last Impressions Chest X-Ray 01/08/17 0000 Signed Impressions: Service Date/Time: Sunday, January 08, 2017 04:12 - CONCLUSION: No acute disease. No significant change has occurred. Herbert Santiago MD Objective Remarks GENERAL: Cachectic, sitting in bed eating breakfast. Well-developed patient. SKIN: Warm and dry. Raised hyperpigmented lesions on bilateral forearms with excoriations and granulation tissue in different stages of healing. HEAD: Normocephalic. EYES: No scleral icterus. injection. No drainage. CARDIOVASCULAR: Regular rate and rhythm with holosystolic murmur, no gallops, or rubs. RESPIRATORY: Breath sounds equal bilaterally. No accessory muscle use. GASTROINTESTINAL: Abdomen soft, non-tender, nondistended. EXTREMITIES: No cyanosis, or edema. NEUROLOGICAL: Awake, alert. Non-focal. (Flory Martinez MD R1) A/P Assessment and Plan Patient is a 41-year-old male admitted in November 2016 for bilateral pneumonia, and then on December 17, 2016, for culture-negative endocarditis. He left AMA during both hospitalizations. He returns with new lesions on his arms, as well as subjective fevers and chills. Discharge Planning Discharge after completion of IV antibiotic therapy for endocarditis (Flory Martinez MD R1) Attending Attestation Patient seen and examined. Case reviewed and discussed Agree with plan of care as discussed with me and documented in the resident note. (Hanane Schroeder MD) Problem List: (1) Fever chills ICD Codes: R50.9 - Fever, unspecified Status: Acute Plan: Meeting sepsis criteria on admission, with fevers as high as 103.0 F, tachycardic to 110/m, and a possible source being bacteremia/endocarditis. JEREMY on 12/17 showed: "EF of 55-60%, with a mild to moderate mitral valve regurgitation with 2-3 jets noted. Findings consistent with vegetation on the non-coronary cusp of the aortic valve. Appears to be 0.8 cm x 0.8 cm. Trace aortic valve regurgitation." -New echocardiogram ordered -Blood cultures no growth 1 day -Consult infectious disease, appreciate recommendations * DC Zosyn IV * Continue Vanco IV (target trough 15-20) * Start Bactrim for PCP prophylaxis * Will reevaluate for Dalvance therapy once fevers resolve and cultures are negative (2) Arm lesion ICD Codes: L98.9 - Disorder of the skin and subcutaneous tissue, unspecified Status: Acute Plan: May represent secondary syphilis, vs sarposi carcinoma, vs. gummas. Most likely previously infected mosquito bites. -May consider biopsy. -Follow up as outpatient with dermatology (3) HIV (human immunodeficiency virus infection) ICD Codes: B20 - Human immunodeficiency virus [HIV] disease Status: Chronic Plan: -CD4 count and HIV viral load pending (4) FEN Status: Acute Plan: Fluids: NS at 100 ml/hr, Monitor I&Os Electrolytes: at goal cont to monitor daily BMP Nutrition: Full diet with double portions DVT ppx: Lovenox 40 units sq daily. (Flory Martinez MD R1) Flory Mratinez MD R1 Jan 09, 2017 19:12 Hanane Schroeder MD Jan 13, 2017 08:48
[2017-01-10] VITALS (7 sets, daily range): BP systolic 118–131; BP diastolic 62–84; PULSE 68–85; RESP 16–17; TEMP 98.2–99.4; O2SAT 98–99
[2017-01-10] MEDS: VANCOMYCIN 1,000 MG/NS 250 ML IV SCH ×6 (04:33→20:24)
[2017-01-10] MEDS: SODIUM CHLOR 0.9% 1000 ML INJ 1,000 ML IV SCH ×2 (05:00→13:52)
[2017-01-10 08:33] LABS: AUTOMATED NEUTROPHIL # 1.4 TH/MM3 (1.8-7.7); BASOPHIL % 0.7 % (0.0-2.0); EOSINOPHIL # 0.5 TH/MM3 (0-0.4); EOSINOPHIL % 15.1 % (0.0-4.0); HEMATOCRIT 30.9 % (39.0-51.0); HEMO FLAGS DIFF FINAL; LYMPH % 29.7 % (9.0-44.0); LYMPHOCYTE # 0.9 TH/MM3 (1.0-4.8); MEAN CELL VOLUME 87.4 FL (80.0-100.0); MEAN CORPUSCULAR HEMOGLOBIN 28.1 PG (27.0-34.0); MEAN CORPUSCULAR HGB CONC 32.1 % (32.0-36.0); MONO % 8.9 % (0.0-8.0); NEUT % 45.6 % (16.0-70.0); PLATELET COUNT 229 TH/MM3 (150-450); RED BLOOD COUNT 3.53 MIL/MM3 (4.50-5.90); RED CELL DISTRIBUTION WIDTH 14.2 % (11.6-17.2)
[2017-01-10 09:10] LABS: BICARBONATE 28.5 MEQ/L (21.0-32.0); POTASSIUM 3.9 MEQ/L (3.5-5.1); TOTAL BILIRUBIN ADULT 0.2 MG/DL (0.2-1.0)
[2017-01-10 09:35] LABS: CALCIUM-PROTEIN CORRECTED 7.4 MG/DL (8.5-10.1)
[2017-01-10] MEDS: FOLIC ACID 1 MG TAB PO SCH (10:06)
[2017-01-10] MEDS: MULTIVITAMIN TAB PO SCH (10:06)
[2017-01-10] MEDS: THIAMINE HCL 100 MG TAB PO SCH (10:06)
[2017-01-10] MEDS: SULFAMETHOXAZOLE-TRIMETHOPRIM DS 800-160 MG TAB PO SCH (10:06)
[2017-01-10] MEDS: DOCUSATE SODIUM 50 MG/SENNA 8.6 MG TAB PO SCH ×2 (10:06→20:18)
[2017-01-10] MEDS: SODIUM CHLORIDE 0.9% FLUSH 10 ML FLUSH IV FLUSH SCH ×2 (10:08→20:24)
[2017-01-10] MEDS ORDERED: CALCIUM GLUCONATE 500 MG TAB PO SCH (10:15)
[2017-01-10] MEDS ORDERED: PHARMACY ORDERED LAB ONE (11:45)
--- NOTE | 2017-01-10 12:28 | HHI.FPPN ---
Subjective Remarks Patient states that he is doing well this morning. He did have some subjective chills earlier this morning, but he says he is doing fine. He has a big appetite and is eating well. No chest pain, no shortness of breath, no abdominal pain, no nausea or vomiting, no diarrhea or constipation. (Flory Martinez MD R1) Objective Vitals Vital Signs Date Time Temp Pulse Resp B/P (MAP) Pulse Ox O2 Delivery O2 Flow Rate FiO2 01/10/17 08:00 98.8 76 16 121/79 (93) 98 01/10/17 04:00 99.4 78 16 119/62 (81) 98 01/10/17 00:00 98.8 84 16 118/71 (87) 98 01/09/17 20:00 99.1 90 20 121/67 (85) 100 01/09/17 16:36 99.4 79 16 122/80 (94) 96 I/O 01/09/17 01/09/17 01/09/17 01/10/17 01/10/17 01/10/17 07:00 15:00 23:00 07:00 15:00 23:00 Intake Total 1610 ml Output Total 1450 ml Balance 160 ml Intake Oral 360 ml IV Total 1250 ml Output Urine Total 1450 ml # Bowel Movements 0 (Flory Martinez MD R1) Result Diagram: 01/10/17 0701 01/10/17 0701 Objective Remarks GENERAL: Cachectic, sitting in bed. Well-developed patient. SKIN: Warm and dry. Raised hyperpigmented lesions on bilateral forearms with excoriations and granulation tissue in different stages of healing. HEAD: Normocephalic. EYES: No scleral icterus. injection. No drainage. CARDIOVASCULAR: Regular rate and rhythm with holosystolic murmur, no gallops, or rubs. RESPIRATORY: Breath sounds equal bilaterally. No accessory muscle use. Decreased air movement at lung bases GASTROINTESTINAL: Abdomen soft, non-tender, nondistended. EXTREMITIES: No cyanosis, or edema. NEUROLOGICAL: Awake, alert. Non-focal. (Flory Martinez MD R1) A/P Assessment and Plan Patient is a 41-year-old male admitted in November 2016 for bilateral pneumonia, and then on December 17, 2016, for culture-negative endocarditis. He left AMA during both hospitalizations. He returns with new lesions on his arms, as well as subjective fevers and chills. Discharge Planning Discharge after completion of IV antibiotic therapy for endocarditis (Flory Martinez MD R1) Attending Attestation Patient seen and examined. Case reviewed and discussed Agree with plan of care as discussed with me and documented in the resident note (Hanane Schroeder MD) Problem List: (1) Fever chills ICD Codes: R50.9 - Fever, unspecified Status: Acute Plan: Meeting sepsis criteria on admission, with fevers as high as 103.0 F, tachycardic to 110/m, and a possible source being bacteremia/endocarditis. JEREMY on 12/17 showed: "EF of 55-60%, with a mild to moderate mitral valve regurgitation with 2-3 jets noted. Findings consistent with vegetation on the non-coronary cusp of the aortic valve. Appears to be 0.8 cm x 0.8 cm. Trace aortic valve regurgitation." -New echocardiogram ordered -Blood cultures no growth 2 days -Consult infectious disease, appreciate recommendations * Vanco IV (target trough 15-20) * Bactrim for PCP prophylaxis * Will reevaluate for Dalvance therapy once fevers resolve and cultures are negative (2) Arm lesion ICD Codes: L98.9 - Disorder of the skin and subcutaneous tissue, unspecified Status: Acute Plan: May represent secondary syphilis, vs sarposi carcinoma, vs. gummas. Most likely previously infected mosquito bites. -May consider biopsy. -Follow up as outpatient with dermatology (3) HIV (human immunodeficiency virus infection) ICD Codes: B20 - Human immunodeficiency virus [HIV] disease Status: Chronic Plan: -CD4 count and HIV viral load pending (4) FEN Status: Acute Plan: Fluids: NS at 100 ml/hr, Monitor I&Os Electrolytes: Hypocalcemia at 7.4, repleting with calcium gluconate Nutrition: Full diet with double portions DVT ppx: Lovenox 40 units sq daily. (Flory Martinez MD R1) Flory Martinez MD R1 Jan 10, 2017 12:28 Hanane Schroeder MD Jan 10, 2017 15:44
[2017-01-10] MEDS: ENOXAPARIN SODIUM 40 MG/0.4 ML SYRINGE SQ SCH (13:41)
[2017-01-10] MEDS: CALCIUM CARBONATE 1.25 GM (CA 500 MG) TAB PO SCH (20:23)
[2017-01-11] VITALS (8 sets, daily range): BP systolic 120–127; BP diastolic 66–79; PULSE 61–77; RESP 16–19; TEMP 97.9–98.5; O2SAT 97–99
[2017-01-11] MEDS: SODIUM CHLOR 0.9% 1000 ML INJ 1,000 ML IV SCH ×2 (02:59→16:46)
[2017-01-11 03:50] LABS: CD4/CD8 RATIO 0.6 (0.86-5.00)
[2017-01-11] MEDS: VANCOMYCIN 1,000 MG/NS 250 ML IV SCH ×6 (04:52→20:52)
[2017-01-11 08:06] LABS: HEMATOCRIT 34.2 % (39.0-51.0); MEAN CELL VOLUME 87.8 FL (80.0-100.0); MEAN CORPUSCULAR HEMOGLOBIN 27.2 PG (27.0-34.0); MEAN CORPUSCULAR HGB CONC 30.9 % (32.0-36.0); PLATELET COUNT 259 TH/MM3 (150-450); RED CELL DISTRIBUTION WIDTH 14.3 % (11.6-17.2); REVIEW FLAG FINAL; WHITE BLOOD COUNT 3.3 TH/MM3 (4.0-11.0)
[2017-01-11] MEDS: DOCUSATE SODIUM 50 MG/SENNA 8.6 MG TAB PO SCH ×2 (09:00→20:52)
[2017-01-11] MEDS: SODIUM CHLORIDE 0.9% FLUSH 10 ML FLUSH IV FLUSH SCH ×2 (09:00→20:52)
[2017-01-11] MEDS: CALCIUM CARBONATE 1.25 GM (CA 500 MG) TAB PO SCH ×2 (09:24→20:52)
[2017-01-11] MEDS: FOLIC ACID 1 MG TAB PO SCH (09:24)
[2017-01-11] MEDS: MULTIVITAMIN TAB PO SCH (09:24)
[2017-01-11] MEDS: THIAMINE HCL 100 MG TAB PO SCH (09:24)
--- NOTE | 2017-01-11 11:13 | HHI.FPPN ---
Subjective Remarks Patient seen and examined this morning. No acute events overnight. Patient denies any complaints/concerns today. Denies any fever/chills, chest pain, shortness of breath, abdominal pain, leg pain. (Joaquin Cason MD, R2) Objective Vitals Vital Signs Date Time Temp Pulse Resp B/P (MAP) Pulse Ox O2 Delivery O2 Flow Rate FiO2 01/11/17 08:00 98.5 70 16 126/79 (95) 99 01/11/17 04:00 97.9 61 18 124/66 (85) 98 01/11/17 00:00 98.2 68 19 127/72 (90) 97 01/10/17 20:05 85 01/10/17 20:00 98.6 74 17 123/81 (95) 99 01/10/17 16:00 98.6 72 16 125/80 (95) 99 01/10/17 12:00 98.2 68 16 131/84 (100) 99 I/O 01/10/17 01/10/17 01/10/17 01/11/17 01/11/17 01/11/17 06:59 14:59 22:59 06:59 14:59 22:59 Intake Total 1610 ml 1450 ml 2570 ml Output Total 1450 ml 450 ml 2300 ml 2650 ml Balance 160 ml -450 ml -850 ml -80 ml Intake Oral 360 ml 1200 ml 1020 ml IV Total 1250 ml 250 ml 1550 ml Output Urine Total 1450 ml 450 ml 2300 ml 2650 ml # Bowel Movements 0 1 1 (Joaquin Cason MD, R2) Result Diagram: 01/11/17 0712 01/10/17 0701 Objective Remarks GENERAL: Cachectic, lying in bed, sleeping SKIN: Raised hyperpigmented lesions on bilateral forearms with excoriations and granulation tissue in different stages of healing. CARDIOVASCULAR: Regular rate and rhythm with holosystolic murmur, no gallops, or rubs. RESPIRATORY: Breath sounds equal bilaterally. Decreased air movement at lung bases GASTROINTESTINAL: Abdomen soft, non-tender, nondistended. BS+ EXTREMITIES: No cyanosis, or edema. NEUROLOGICAL: Awake, alert. Non-focal. (Joaquin Cason MD, R2) A/P Assessment and Plan Patient is a 41-year-old male admitted in November 2016 for bilateral pneumonia, and then on December 17, 2016, for culture-negative endocarditis. He left AMA during both hospitalizations. He returns with new lesions on his arms, as well as subjective fevers and chills. Discharge Planning Discharge after completion of IV antibiotic therapy for endocarditis and ID recs (Joaquin Cason MD, R2) Attending Attestation Patient seen and examined. Case reviewed and discussed Agree with plan of care as discussed with me and documented in the resident note. 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 JEREMY on 12/17 showed: "EF of 55-60%, with a mild to moderate mitral valve regurgitation with 2-3 jets noted. Findings consistent with vegetation on the non-coronary cusp of the aortic valve. Appears to be 0.8 cm x 0.8 cm. Trace aortic valve regurgitation." Pt has clinically improved. Remains afebrile and negative blood cultures. -Consult infectious disease, appreciate recommendations * Vancomycin IV (01/08 - ) (target trough 15-20) * Bactrim for PCP prophylaxis * ID will reevaluate for Dalvance therapy once fevers resolve and cultures are negative -Blood cx NGTD -Repeat Echo pending (2) HIV (human immunodeficiency virus infection) ICD Codes: B20 - Human immunodeficiency virus [HIV] disease Status: Chronic Plan: History of HIV. Currently not on any anti-virals. CD4 count 112. HIV viral load pending -ID consulted as above-appreciate recs -Will benefit from outpatient f/u (3) Arm lesion ICD Codes: L98.9 - Disorder of the skin and subcutaneous tissue, unspecified Status: Acute Plan: May represent secondary syphilis, vs sarposi carcinoma, vs. gummas. Most likely previously infected mosquito bites. Asymptomatic -May consider biopsy if worsening -Continue to monitor -Follow up as outpatient with dermatology (4) FEN Status: Acute Plan: Fluids: NS at 100 ml/hr, Monitor I&Os Electrolytes: Hypocalcemia repleting with calcium gluconate Nutrition: Full diet with double portions DVT ppx: Lovenox 40 units sq daily. (Joaquin Cason MD, R2) Joaquin Cason MD, R2 Jan 11, 2017 11:13 Hanane Schroeder MD Jan 13, 2017 08:49
[2017-01-11] MEDS ORDERED: PHARMACY ORDERED LAB ONE (11:45)
[2017-01-11 12:25] LABS: ALKALINE PHOSPHATASE 71 U/L (45-117); TOTAL BILIRUBIN ADULT 0.2 MG/DL (0.2-1.0)
[2017-01-11 12:26] LABS: ALT (GPT) 15 U/L (12-78); ANION GAP 4 MEQ/L (5-15); AST (GOT) 23 U/L (15-37); BICARBONATE 28.8 MEQ/L (21.0-32.0); BLOOD UREA NITROGEN 9 MG/DL (7-18); CHLORIDE 104 MEQ/L (98-107); GLOMERULAR FILTRATION RATE 132 ML/MIN (>89); POTASSIUM 4.7 MEQ/L (3.5-5.1); SODIUM (NA) 137 MEQ/L (136-145)
[2017-01-11] MEDS: ENOXAPARIN SODIUM 40 MG/0.4 ML SYRINGE SQ SCH (14:00)
--- NOTE | 2017-01-11 17:45 | ECHRPT ---
Indication: endocarditis CONCLUSIONS Normal left ventricular size. Mild concentric left ventricular hypertrophy. The left ventricular systolic function is normal with an estimated ejection fraction in the range of 55-60%. No regional wall motion abnormalities are present. Mild to mod mitral valve regurgitation. No mitral valve stenosis. Mild aortic valve regurgitation. There is mild tricuspid valve regurgitation. The pulmonary valve is not well visualized. BP: / HR: Rhythm: MEASUREMENTS (Male / Female) Normal Values Technical Quality:Good 2D ECHO LV Diastolic Diameter PLAX 5.1 cm 4.2 - 5.9 / 3.9 - 5.3 cm LV Systolic Diameter PLAX 3.8 cm IVS Diastolic Thickness 1.3 cm 0.6 - 1.0 / 0.6 - 0.9 cm LVPW Diastolic Thickness 1.1 cm 0.6 - 1.0 / 0.6 - 0.9 cm LV Relative Wall Thickness 0.5 RV Internal Dim ED PLAX 2.1 cm M-MODE Aortic Root Diameter MM 3.2 cm LA Systolic Diameter MM 3.3 cm LA Ao Ratio MM 1.0 AV Cusp Separation MM 2.4 cm DOPPLER MV Area PHT 3.2 cm TR Peak Velocity 238.0 cm/s TR Peak Gradient 22.7 mmHg FINDINGS LEFT VENTRICLE Normal left ventricular size. Mild concentric left ventricular hypertrophy. The left ventricular systolic function is normal with an estimated ejection fraction in the range of 55-60%. No regional wall motion abnormalities are present. RIGHT VENTRICLE Normal right ventricular size and systolic function. LEFT ATRIUM The left atrial size is normal. RIGHT ATRIUM The right atrial size is normal. ATRIAL SEPTUM Normal atrial septal thickness without atrial level shunting by limited color doppler interrogation. AORTA The aortic root and proximal ascending aorta are normal in size on limited imaging. MITRAL VALVE Mild mitral valve regurgitation. No mitral valve stenosis. AORTIC VALVE Trileaflet aortic valve. Mild aortic valve regurgitation. TRICUSPID VALVE There is mild tricuspid valve regurgitation. PULMONARY VALVE The pulmonary valve is not well visualized. VESSELS The inferior vena cava is normal in size. PERICARDIUM No pericardial effusion. Aman Smith MD, FACC, [facility] [place] (Electronically Signed) Final Date:11 January 2017 17:43
[2017-01-12] VITALS (8 sets, daily range): BP systolic 115–121; BP diastolic 66–77; PULSE 69–82; RESP 16–18; TEMP 97.4–98.9; O2SAT 98–100
[2017-01-12] MEDS: SODIUM CHLOR 0.9% 1000 ML INJ 1,000 ML IV SCH ×3 (03:27→17:00)
[2017-01-12] MEDS: VANCOMYCIN 1,000 MG/NS 250 ML IV SCH ×4 (04:31→12:51)
[2017-01-12] MEDS: THIAMINE HCL 100 MG TAB PO SCH (08:34)
[2017-01-12] MEDS: FOLIC ACID 1 MG TAB PO SCH (08:34)
[2017-01-12] MEDS: MULTIVITAMIN TAB PO SCH (08:34)
[2017-01-12] MEDS: SODIUM CHLORIDE 0.9% FLUSH 10 ML FLUSH IV FLUSH SCH ×2 (08:35→21:19)
[2017-01-12] MEDS: CALCIUM CARBONATE 1.25 GM (CA 500 MG) TAB PO SCH ×2 (08:35→21:00)
[2017-01-12] MEDS: DOCUSATE SODIUM 50 MG/SENNA 8.6 MG TAB PO SCH ×2 (08:37→21:00)
[2017-01-12 10:41] LABS: AUTOMATED NEUTROPHIL # 1.8 TH/MM3 (1.8-7.7); BASOPHIL # 0.1 TH/MM3 (0-0.2); BASOPHIL % 1.4 % (0.0-2.0); EOSINOPHIL # 0.4 TH/MM3 (0-0.4); EOSINOPHIL % 10.4 % (0.0-4.0); HEMATOCRIT 33.4 % (39.0-51.0); HEMO FLAGS DIFF FINAL; LYMPH % 27.6 % (9.0-44.0); MEAN CELL VOLUME 86.9 FL (80.0-100.0); MEAN CORPUSCULAR HEMOGLOBIN 28.6 PG (27.0-34.0); MEAN CORPUSCULAR HGB CONC 32.9 % (32.0-36.0); MONO % 14.3 % (0.0-8.0); NEUT % 46.3 % (16.0-70.0); PLATELET COUNT 280 TH/MM3 (150-450); RED BLOOD COUNT 3.85 MIL/MM3 (4.50-5.90); WHITE BLOOD COUNT 3.8 TH/MM3 (4.0-11.0)
[2017-01-12 11:08] LABS: BICARBONATE 30.8 MEQ/L (21.0-32.0); POTASSIUM 4.2 MEQ/L (3.5-5.1)
[2017-01-12] MEDS ORDERED: PHARMACY ORDERED LAB ONE (11:45)
--- NOTE | 2017-01-12 11:53 | HHI.FPPN ---
Subjective Remarks Patient states that he is doing well this morning. He has no complaints or concerns. No fevers or chills, no chest pain, no shortness of breath, no abdominal pain, no nausea or vomiting, no diarrhea or constipation. (Flory Martinez MD R1) Objective Vitals Vital Signs Date Time Temp Pulse Resp B/P (MAP) Pulse Ox O2 Delivery O2 Flow Rate FiO2 01/12/17 08:20 82 01/12/17 08:00 98.6 72 16 121/77 (92) 99 01/12/17 07:00 Room Air 01/12/17 06:00 97.4 69 16 116/75 (89) 98 01/12/17 04:00 Room Air 01/12/17 00:00 Room Air 01/12/17 00:00 98.2 75 18 117/66 (83) 100 01/11/17 20:06 77 01/11/17 20:00 98.2 75 18 122/67 (85) 99 01/11/17 20:00 Room Air 01/11/17 16:00 98.3 77 16 120/71 (87) 99 01/11/17 12:00 98.5 69 16 122/79 (93) 99 I/O 01/11/17 01/11/17 01/11/17 01/12/17 01/12/17 01/12/17 07:00 15:00 23:00 07:00 15:00 23:00 Intake Total 2570 ml 730 ml 1897 ml Output Total 2650 ml 2425 ml Balance -80 ml 730 ml -528 ml Intake Oral 1020 ml 480 ml 460 ml IV Total 1550 ml 250 ml 1437 ml Output Urine Total 2650 ml 2425 ml # Voids 8 # Bowel Movements 1 1 (Flory Martinez MD R1) Result Diagram: 01/12/17 1004 01/12/17 1004 Objective Remarks GENERAL: Cachectic, lying in bed, sleeping SKIN: Raised hyperpigmented lesions on bilateral forearms with excoriations and granulation tissue in different stages of healing. CARDIOVASCULAR: Regular rate and rhythm with holosystolic murmur, no gallops, or rubs. RESPIRATORY: Breath sounds equal bilaterally. Decreased air movement at lung bases GASTROINTESTINAL: Abdomen soft, non-tender, nondistended. BS+ EXTREMITIES: No cyanosis, or edema. NEUROLOGICAL: Awake, alert. Non-focal. (Flory Martinez MD R1) A/P Assessment and Plan Patient is a 41-year-old male admitted in November 2016 for bilateral pneumonia, and then on December 17, 2016, for culture-negative endocarditis. He left AMA during both hospitalizations. He returns with new lesions on his arms, as well as subjective fevers and chills. Discharge Planning Discharge after completion of IV antibiotic therapy for endocarditis and ID recs (Flory Martinez MD R1) Attending Attestation Patient seen and examined. Case reviewed and discussed Agree with plan of care as discussed with me and documented in the resident note. 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 JEREMY on 12/17 showed: "EF of 55-60%, with a mild to moderate mitral valve regurgitation with 2-3 jets noted. Findings consistent with vegetation on the non-coronary cusp of the aortic valve. Appears to be 0.8 cm x 0.8 cm. Trace aortic valve regurgitation." Pt has clinically improved. Remains afebrile and negative blood cultures. Repeat echo did not show vegetations. However, will continue treatment. -Consult infectious disease, appreciate recommendations * Vancomycin IV (01/08 - ) (target trough 15-20) * Bactrim for PCP prophylaxis * ID will reevaluate for Dalvance therapy once fevers resolve and cultures are negative -Vanc trough high at 22.7. Consulted Pharmacy for dose adjustment -Blood cx NGTD (2) HIV (human immunodeficiency virus infection) ICD Codes: B20 - Human immunodeficiency virus [HIV] disease Status: Chronic Plan: History of HIV. Currently not on any anti-virals. CD4 count 112. HIV viral load pending -ID consulted as above-appreciate recs -Will benefit from outpatient f/u (3) Arm lesion ICD Codes: L98.9 - Disorder of the skin and subcutaneous tissue, unspecified Status: Acute Plan: May represent secondary syphilis, vs sarposi carcinoma, vs. gummas. Most likely previously infected mosquito bites. Asymptomatic -May consider biopsy if worsening -Continue to monitor -Follow up as outpatient with dermatology (4) FEN Status: Acute Plan: Fluids: NS at 100 ml/hr, Monitor I&Os Electrolytes: Hypocalcemia repleting with calcium carbonate Nutrition: Full diet with double portions DVT ppx: Lovenox 40 units sq daily. (Flory Martinez MD R1) Flory Martinez MD R1 Jan 12, 2017 11:53 Hanane Schroeder MD Jan 13, 2017 08:49
[2017-01-12] MEDS ORDERED: Vancomycin Consult Pharmacy 1 EA OTHER SCH (12:00)
[2017-01-12] MEDS: ENOXAPARIN SODIUM 40 MG/0.4 ML SYRINGE SQ SCH (12:51)
[2017-01-13] VITALS: BP 122/71; PULSE 68; RESP 16; TEMP 97.6; O2SAT 99
[2017-01-13] MEDS: SODIUM CHLOR 0.9% 1000 ML INJ 1,000 ML IV SCH (00:13)
[2017-01-13] MEDS ORDERED: VANCOMYCIN INJ 1,250 MG in SODIUM CHLOR 0.9% 250 ML INJ 250 ML IV SCH (01:00)
[2017-01-13 06:14] LABS: HEMATOCRIT 32.7 % (39.0-51.0); MEAN CELL VOLUME 87.2 FL (80.0-100.0); MEAN CORPUSCULAR HEMOGLOBIN 27.9 PG (27.0-34.0); PLATELET COUNT 300 TH/MM3 (150-450); RED BLOOD COUNT 3.75 MIL/MM3 (4.50-5.90); REVIEW FLAG FINAL; WHITE BLOOD COUNT 3.8 TH/MM3 (4.0-11.0)
[2017-01-13 06:52] LABS: BICARBONATE 31.1 MEQ/L (21.0-32.0); POTASSIUM 4.2 MEQ/L (3.5-5.1)
[2017-01-13 08:00] VITALS: PULSE 72
[2017-01-13 08:06] VITALS: BP 130/82; PULSE 86; RESP 16; TEMP 98.3; O2SAT 98
[2017-01-13] MEDS: THIAMINE HCL 100 MG TAB PO SCH (08:52)
[2017-01-13] MEDS: MULTIVITAMIN TAB PO SCH (08:52)
[2017-01-13] MEDS: FOLIC ACID 1 MG TAB PO SCH (08:52)
[2017-01-13] MEDS: DOCUSATE SODIUM 50 MG/SENNA 8.6 MG TAB PO SCH (08:53)
[2017-01-13] MEDS: SULFAMETHOXAZOLE-TRIMETHOPRIM DS 800-160 MG TAB PO SCH (08:53)
[2017-01-13] MEDS: CALCIUM CARBONATE 1.25 GM (CA 500 MG) TAB PO SCH (08:54)
[2017-01-13] MEDS: SODIUM CHLORIDE 0.9% FLUSH 10 ML FLUSH IV FLUSH SCH (08:57)
--- NOTE | 2017-01-13 15:28 | PD.AMA ---
Against Medical Advice Note Diagnosis: (1) Endocarditis (2) Hepatitis B/C (3) HIV (human immunodeficiency virus infection) (4) Arm lesion Pt Condition on Discharge: Fair AMA Statement Patient Kelsie Brady has decided to leave the hospital against medical advice. This patient has the capacity to refuse care and understands the risks of leaving, including permanent disability and/or , and has had an opportunity to ask questions about his condition. The patient has been informed that he may return for care at any time, and follow up has been arranged/ advised. Joaquin Cason MD, R2 Jan 13, 2017 15:28
--- NOTE | 2017-01-13 16:46 | HHI.FPPN ---
Subjective Remarks Patient states that he is doing well this morning. He would like to know how long he needs to stay in the hospital on antibiotics. No fever or chills, no chest pain, no shortness of breath, no abdominal pain, no nausea or vomiting, no diarrhea or constipation. (Flory Martinez MD R1) Objective Vitals Vital Signs Date Time Temp Pulse Resp B/P (MAP) Pulse Ox O2 Delivery O2 Flow Rate FiO2 01/13/17 08:06 98.3 86 16 130/82 (98) 98 01/13/17 08:00 96 Room Air 01/13/17 08:00 72 01/13/17 03:46 Room Air 01/13/17 00:00 97.6 68 16 122/71 (88) 99 01/13/17 00:00 Room Air 01/12/17 20:02 82 01/12/17 20:00 97.5 80 16 118/69 (85) 98 01/12/17 20:00 Room Air 01/12/17 18:00 98.6 78 16 115/72 (86) 100 I/O 01/12/17 01/12/17 01/12/17 01/13/17 01/13/17 01/13/17 07:00 15:00 23:00 07:00 15:00 23:00 Intake Total 1897 ml 960 ml 1772.5 ml Output Total 2425 ml 2700 ml Balance -528 ml 960 ml -927.5 ml Intake Oral 460 ml 960 ml 920 ml IV Total 1437 ml 852.5 ml Output Urine Total 2425 ml 2700 ml # Voids 4 # Bowel Movements 1 2 (Flory Martinez MD R1) Result Diagram: 01/13/1744 01/13/17543 Objective Remarks GENERAL: Cachectic, lying in bed, sleeping SKIN: Raised hyperpigmented lesions on bilateral forearms with excoriations and granulation tissue in different stages of healing. CARDIOVASCULAR: Regular rate and rhythm with holosystolic murmur, no gallops, or rubs. RESPIRATORY: Breath sounds equal bilaterally. Decreased air movement at lung bases GASTROINTESTINAL: Abdomen soft, non-tender, nondistended. BS+ EXTREMITIES: No cyanosis, or edema. NEUROLOGICAL: Awake, alert. Non-focal. (Flory Martinez MD R1) A/P Assessment and Plan Patient is a 41-year-old male admitted in November 2016 for bilateral pneumonia, and then on December 17, 2016, for culture-negative endocarditis. He left AMA during both hospitalizations. He returns with new lesions on his arms, as well as subjective fevers and chills. Discharge Planning Discharge after completion of IV antibiotic therapy for endocarditis and ID recs (Flory Martinez MD R1) Attending Attestation left AMA prior to being seen by attending physician. 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 JEREMY on 12/17 showed: "EF of 55-60%, with a mild to moderate mitral valve regurgitation with 2-3 jets noted. Findings consistent with vegetation on the non-coronary cusp of the aortic valve. Appears to be 0.8 cm x 0.8 cm. Trace aortic valve regurgitation." Pt has clinically improved. Remains afebrile and negative blood cultures. Repeat echo did not show vegetations. However, will continue treatment. -Consult infectious disease, appreciate recommendations * Vancomycin IV (01/08 - ) (target trough 15-20) * Bactrim for PCP prophylaxis * ID will reevaluate for Dalvance therapy once fevers resolve and cultures are negative -Vanc trough high at 22.7. Consulted Pharmacy for dose adjustment -Blood cx NGTD (2) HIV (human immunodeficiency virus infection) ICD Codes: B20 - Human immunodeficiency virus [HIV] disease Status: Chronic Plan: History of HIV. Currently not on any anti-virals. CD4 count 112. HIV viral load pending -ID consulted as above-appreciate recs -Will benefit from outpatient f/u (3) Arm lesion ICD Codes: L98.9 - Disorder of the skin and subcutaneous tissue, unspecified Status: Acute Plan: May represent secondary syphilis, vs sarposi carcinoma, vs. gummas. Most likely previously infected mosquito bites. Asymptomatic -May consider biopsy if worsening -Continue to monitor -Follow up as outpatient with dermatology (4) FEN Status: Acute Plan: Fluids: NS at 100 ml/hr, Monitor I&Os Electrolytes: Hypocalcemia repleting with calcium carbonate Nutrition: Full diet with double portions DVT ppx: Lovenox 40 units sq daily. (Flory Martinez MD R1) Flory Martinez MD R1 Jan 13, 2017 16:46 Hanane Schroeder MD Jan 13, 2017 16:49
[2017-01-14] MEDS ORDERED: PHARMACY ORDERED LAB ONE (00:45)
[2017-01-15 17:51] LABS: HIV RNA LOG COPIES 4.97 (<1.30)
--- NOTE | 2017-02-13 08:54 | HHI.DS ---
Discharge Summary Admission Date Jan 08, 2017 at 11:54 Discharge Date: Jan 13, 2017 Admitting Diagnosis endocarditis aortic valve, noncompliance, immunocompromise (1) Endocarditis of aortic valve Diagnosis: Principal Plan: Meeting sepsis criteria on admission, with fevers as high as 103.0 F, tachycardic to 110/m, and a possible source being bacteremia/endocarditis. JEREMY on 12/17 showed: "EF of 55-60%, with a mild to moderate mitral valve regurgitation with 2-3 jets noted. Findings consistent with vegetation on the non-coronary cusp of the aortic valve. Appears to be 0.8 cm x 0.8 cm. Trace aortic valve regurgitation." Pt has clinically improved. Remains afebrile and negative blood cultures. Repeat echo did not show vegetations. However, will continue treatment. -Consult infectious disease, appreciate recommendations * Vancomycin IV (01/08 - ) (target trough 15-20) * Bactrim for PCP prophylaxis * ID will reevaluate for Dalvance therapy once fevers resolve and cultures are negative -Vanc trough high at 22.7. Consulted Pharmacy for dose adjustment -Blood cx NGTD ICD Codes: I35.8 - Other nonrheumatic aortic valve disorders Status: Acute (2) HIV (human immunodeficiency virus infection) Plan: History of HIV. Currently not on any anti-virals. CD4 count 112. HIV viral load pending -ID consulted as above-appreciate recs -Will benefit from outpatient f/u ICD Codes: B20 - Human immunodeficiency virus [HIV] disease Status: Chronic (3) Arm lesion Plan: May represent secondary syphilis, vs sarposi carcinoma, vs. gummas. Most likely previously infected mosquito bites. Asymptomatic -May consider biopsy if worsening -Continue to monitor -Follow up as outpatient with dermatology ICD Codes: L98.9 - Disorder of the skin and subcutaneous tissue, unspecified Status: Acute (4) FEN Plan: Fluids: NS at 100 ml/hr, Monitor I&Os Electrolytes: Hypocalcemia repleting with calcium carbonate Nutrition: Full diet with double portions DVT ppx: Lovenox 40 units sq daily. Status: Acute Brief History Patient is a 41-year-old male with a past medical history of HIV, bilateral pneumonia, endocarditis with an aortic vegetation seen on 12/17 on JEREMY, homelessness, syphilis treated with penicillin, hepatitis B, hepatitis C, cocaine abuse, and DVT in his right leg, presenting with new sores on his arms, as well as fevers and chills 24 hours. CC: "Sore on my arms" HPI: The bumps on his arms started 3 week ago and just recently (1 week ago) became blisters and reported some numbness in these areas. He also notices that the blister pop and have a "foamy" discharge that is clear. The lesions are painful. He says, "I thought I was having a stroke" because of the numbness he was having. No other bumps on his arms or other parts of his body that he is aware of. He is also concerned about his HIV and bacterial blood infection. He is not taking any medications for HIV. "I am here for the long morel." ROS: Diarrhea -- "has been alright" Now having 1-2 formed BMs per day. Cocaine 2 days ago, smoked. Denies IVD. No chest pain currently. SOB every now and again, feels like "I'm closed in" especially with walking in heat. Waking up at night SOB frequently for the past several weeks. Since his pneumonia. Not coughing. No new sputum production. No hemoptysis. He has been complaining of an upper respiratory tract infection with yellow mucus from nose. Denies stomach pain. Nausea or vomiting. Eating well. He has been reporting subjective fevers and chills - "hot flashes" all day on 01/09. Also significant for + Weight loss, not certain amount. He denies swelling in extremities, new muscle aches or cramping , but has constant bone pain. He denies vision changes, blurry vision, or stiff neck. Denies headaches. PMHx: Syphilis treated with penicillin HIV Hepatitis B / C Pneumonia (bilateral) Endocarditis No IN, CVA, +VTE in left thigh No seizures Meds: None Social History: Born - [employer] 11[employer] previously 1 ppd cigarettes for 3-4 years. Homelessness. Marijuana everyday Smoking cocaine daily. "keeps me up and numb". Family History: Mother - hypertension Father - hypertension Brothers / sisters - history uncertain, but healthy from what he knows PE at Discharge GENERAL: Cachectic, lying in bed, sleeping SKIN: Raised hyperpigmented lesions on bilateral forearms with excoriations and granulation tissue in different stages of healing. CARDIOVASCULAR: Regular rate and rhythm with holosystolic murmur, no gallops, or rubs. RESPIRATORY: Breath sounds equal bilaterally. Decreased air movement at lung bases GASTROINTESTINAL: Abdomen soft, non-tender, nondistended. BS+ EXTREMITIES: No cyanosis, or edema. NEUROLOGICAL: Awake, alert. Non-focal. Hospital Course Mr. Brady is a 41-year-old male with a past medical history of HIV and cocaine abuse who presented to the ED because of previously found endocarditis at a prior admission from which he left AMA. He was also concerned about some lesions he had on his arms from mosquito bites. JEREMY from previous admission on showed: "EF of 55-60%, with a mild to moderate mitral valve regurgitation with 2-3 jets noted. Findings consistent with vegetation on the non-coronary cusp of the aortic valve. Appears to be 0.8 cm x 0.8 cm. Trace aortic valve regurgitation." A repeat echocardiogram was done on 01/11, no vegetations were noted. The patient was started on vancomycin IV for endocarditis upon admission and Bactrim for PCP prophylaxis on 01/09. Blood cultures showed no growth. Patient left AMA on 01/13. Pt Condition on Discharge: Flory Kurtz MD R1 Feb 13, 2017 08:54
== END 2017-01-13 10:47 | disposition left against medical advice (07) | DRG 975 ==
LOC: NEPE 03:30 → NEDA 05:54 → NEPFCDU 08:47 → OBSVTOIN 11:54 → N04A 01-09 18:38
PROVIDERS: ADMIT Family Medicine; ATTEND Family Medicine
DX: A41.9 Sepsis, unspecified organism (principal); B20 Human immunodeficiency virus [HIV] disease; R64 Cachexia; E83.51 Hypocalcemia; I10 Essential (primary) hypertension; F31.9 Bipolar disorder, unspecified; F41.9 Anxiety disorder, unspecified; F17.210 Nicotine dependence, cigarettes, uncomplicated; F14.10 Cocaine abuse, uncomplicated; R62.7 Adult failure to thrive; I35.8 Other nonrheumatic aortic valve disorders; L98.9 Disorder of the skin and subcutaneous tissue, unspecified; Z91.14 Patient's other noncompliance with medication regimen; Z59.0 Homelessness
CPT/HCPCS: 71010; 80048; 80053; 80202; 80307; 82948; 83036; 83605; 84484; 85025; 85027; 86355; 86357; 86359; 86360; 87040; 87536; 93306; 94150; 96365; 96375; J1200; J2543; J3370; J7030; J7050

== ENCOUNTER 2017-11-09 03:08 | Emergency (ER) | payer OTHER ==
[~2017-11-09] VITALS: Ht 193 cm; Wt 60.0 kg
[2017-11-09 03:15] VITALS: BP 101/65; PULSE 91; RESP 16; TEMP 98.6; O2SAT 96
[2017-11-09] MEDS ORDERED: valACYclovir HCL 500 MG TAB PO ONE (03:45)
[2017-11-09] MEDS ORDERED: ACETAMINOPHEN/HYDROcodone 325 MG/5 MG TAB PO ONE (03:45)
[2017-11-09] MEDS ORDERED: VALT1TAB PO (03:58)
--- NOTE | 2017-11-09 03:58 | PD ---
HPI Chief Complaint: Skin Problem Time Seen by Provider: 03:23 Travel History International Travel<30 days: No Contact w/Intl Traveler<30days: No Traveled to known affect area: No History of Present Illness HPI 42-year-old man with a history of HIV, unknown CD4 count, hepatitis B, cocaine, DVT, syphilis, and reported endocarditis, who presents to the emergency department with painful rash. Rash has been on the left side of his chest for the past 6 days or so. Is been painful. He was in [facility] the time and a did blood work and told me he had a "white blood cell infection". He is on HIV medications. He states he is compliant with them. He is following up with the health department now. Is a CD4 count that they [place] some past couple days. Has another appointment on Friday, 4 days from now, to establish care. History Past Medical History Narrative Medical Patient diabetes Hepatitis B and C Cocaine use History of DVT History of syphilis, treated Social History Alcohol Use: Yes (OCCASIONALLY) Tobacco Use: Yes (05/22 PPD ) Allergies-Medications (Allergen,Severity, Reaction): Coded Allergies: No Known Allergies (Verified Adverse Reaction, Unknown, 05/29/17) Reported Meds & Prescriptions Reported Meds & Active Scripts Active No Active Prescriptions or Reported Medications Review of Systems Except as stated in HPI: all other systems reviewed are Neg Physical Exam Narrative GENERAL: 42-year-old man, no acute distress. SKIN: Focused skin assessment warm/dry. Scattered scarring and healing ulcerations of skin wounds on the upper and lower extremities, scattered throughout. On the left chest there is a zoster form rash with scabbed vesicles. HEAD: Atraumatic. Normocephalic. EYES: Pupils equal and round. No scleral icterus. No injection or drainage. ENT: No nasal bleeding or discharge. Mucous membranes pink and moist. NECK: Trachea midline. No JVD. CARDIOVASCULAR: Regular rate and rhythm. No murmur appreciated. RESPIRATORY: No accessory muscle use. Clear to auscultation. Breath sounds equal bilaterally. GASTROINTESTINAL: Abdomen soft, non-tender, nondistended. Hepatic and splenic margins not palpable. MUSCULOSKELETAL: No obvious deformities. No clubbing. No cyanosis. No edema. NEUROLOGICAL: Awake and alert. No obvious cranial nerve deficits. Motor grossly within normal limits. Normal speech. PSYCHIATRIC: Appropriate mood and affect; insight and judgment normal. Data Data Last Documented VS Vital Signs Date Time Temp Pulse Resp B/P (MAP) Pulse Ox O2 Delivery O2 Flow Rate FiO2 11/09/17 03:15 98.6 91 16 101/65 (77) 96 Orders Orders Valacyclovir (Valtrex) (11/09/17 03:45) Acetamin-Hydrocod 325-5 Mg ([place] 5-325 (11/09/17 03:45) MDM Medical Decision Making Medical Screen Exam Complete: Yes Emergency Medical Condition: Yes Differential Diagnosis Zoster, cellulitis, skin infection, other Narrative Course Medical decision making her 42-year-old man, history of HIV, here with zoster. Scattered skin wounds throughout, but he states he has had this forever. This does not appear to be disseminated HSV. Will put on Valtrex. Outpatient follow -up as scheduled. Diagnosis Primary Impression: Zoster Additional Instructions: Take medications as prescribed. Follow-up with your doctor on Friday as planned. Return to the emergency department for any new or worsening symptoms. Med/Other Pt SpecificInfo: Prescription(s) given Scripts Valacyclovir (Valtrex) 1,000 Mg Tab 1000 MG PO TID for Mgmt Viral Infection for 7 Days, #21 TAB 0 Refills Prov: Sal[place] Paige MD 11/09/17 Disposition: 01 DISCHARGE HOME Condition: Stable Sal[place] Paige MD Nov 09, 2017 03:58
[2017-11-09] MEDS ORDERED: MSIR15 PO (03:59)
== END 2017-11-09 04:12 | disposition home or self-care (01) ==
LOC: NEPC 03:08
DX: B02.9 Zoster without complications (principal); Z21 Asymptomatic human immunodeficiency virus [HIV] infection status; E11.9 Type 2 diabetes mellitus without complications; Z72.0 Tobacco use; Z86.19 Personal history of other infectious and parasitic diseases; Z86.718 Personal history of other venous thrombosis and embolism
CPT/HCPCS: 99283